=== PATIENT | male | born 1980 | race Two or more races ===

== ENCOUNTER 2017-04-05 04:26 | Emergency (ER) | payer MEDICARE, MEDICAID ==
[2017-04-05 05:30] LABS: ABSOLUTE BASOPHILS # (AUTO) 0.1 10^3/uL (0.0-0.2); ABSOLUTE EOSINOPHILS # (AUTO) 0.2 10^3/uL (0.0-0.6); ABSOLUTE LYMPHOCYTES (AUTO) 2.5 10^3/uL (0.5-4.7); BASOPHILS % (AUTO) 0.4 % (0-2); EOSINOPHILS % (AUTO) 1.3 % (0-6); HEMATOCRIT 39.6 % (37.9-51.0); HEMOGLOBIN 12.8 g/dL (13.5-17.0); HGB HCT DIFFERENCE -1.2; LYMPHOCYTES % (AUTO) 14.2 % (13-45); MEAN CORPUSCULAR HEMOGLOBIN 26.7 pg (27.0-33.4); MEAN CORPUSCULAR HGB CONC 32.3 g/dL (32.0-36.0); MEAN CORPUSCULAR VOLUME 83 fl (80-97); MONOCYTES % (AUTO) 5.6 % (3-13); RED BLOOD COUNT 4.78 10^6/uL (4.35-5.55); RED CELL DISTRIBUTION WIDTH 15.8 % (11.5-14.0); SEGMENTED NEUTROPHILS % (AUTO) 78.5 % (42-78); WHITE BLOOD COUNT 17.9 10^3/uL (4.0-10.5)
[2017-04-05 05:36] LABS: APPEARANCE,URINE TURBID; BILIRUBIN,URINE NEGATIVE (NEGATIVE); CALCIUM OXALATE CRYSTALS,URINE MODERATE /HPF; GLUCOSE, URINE NEGATIVE (NEGATIVE); KETONES,URINE NEGATIVE (NEGATIVE); LEUKOCYTE ESTERASE,URINE LARGE (NEGATIVE); NITRITE,URINE POSITIVE (NEGATIVE); PROTEIN,URINE 100 mg/dL (NEGATIVE); URINE SPECIFIC GRAVITY 1.027; UROBILINOGEN,URINE NEGATIVE mg/dL (<2.0)
[2017-04-05 05:43] LABS: ALANINE AMINOTRANSFERASE 30 U/L (21-72); ALKALINE PHOSPHATASE 154 U/L (38-126); ANION GAP 11 (5-19); ASPARTATE AMINO TRANSFERASE 25 U/L (17-59); BILIRUBIN,DIRECT 0.4 mg/dL (0.0-0.4); BILIRUBIN,TOTAL 0.5 mg/dL (0.2-1.3); BLOOD UREA NITROGEN 15 mg/dL (7-20); CALCIUM 9.5 mg/dL (8.4-10.2); CARBON DIOXIDE 25 mmol/L (22-30); CHLORIDE 104 mmol/L (98-107); CREATININE RESULT 0.75 mg/dL (0.52-1.25); GLUCOSE 204 mg/dL (75-110); LIPASE 101.1 U/L (23-300); POTASSIUM 3.7 mmol/L (3.6-5.0); SODIUM 139.6 mmol/L (137-145); TOTAL PROTEIN 8.5 g/dL (6.3-8.2)
[2017-04-05] MEDS ORDERED: NORMAL SALINE 1000 ML 1,000 ML IV ONE (06:30)
[2017-04-05] MEDS ORDERED: KETOROLAC TROMETHAMINE INJ/PF 30 MG/1 ML SDV IV ONE (06:31)
[2017-04-05] MEDS ORDERED: ONDANSETRON HCL INJ/PF 4 MG/2 ML SDV IV ONE (06:31)
[2017-04-05] MEDS ORDERED: CIPROFLOXACIN 400 MG/D5W RTU 400 MG/200 ML RTUPB IV ONE (06:36)
[2017-04-05 07:16] LABS: URINE BARBITURATES SCREEN NEGATIVE; URINE METHADONE SCREEN NEGATIVE; URINE OPIATES LOW NEGATIVE; URINE PHENCYCLIDINE SCREEN NEGATIVE
--- NOTE | 2017-04-05 07:29 | RADIOLOGY REPORT (SQ) ---
EXAM DESCRIPTION: CT LTD RENAL STONE PROTOCOL ON COMPLETED DATE/TIME: 04/05/2017 7:14 am REASON FOR STUDY: flank pain . Bilateral flank pain. COMPARISON: None. TECHNIQUE: CT scan of the abdomen and pelvis performed without intravenous or oral contrast. Images reviewed with lung, soft tissue, and bone windows. Reconstructed coronal and sagittal MPR images revi ewed. All images stored on PACS. All CT scanners at this facility use dose modulation, iterative reconstruction, and/or weight based d osing when appropriate to reduce radiation dose to as low as reasonably achievable (ALARA). [facility]: Dose Right [facility]: CareDose [facility]: Dose Right [facility]: Teradose 4D [facility]: [employer] RADIATION DOSE: Up-to-date CT equipment and radiation dose reduction techniques were employed. CTDIv ol: 19.2 mGy. DLP: 1089 mGy-cm.mGy. LIMITATIONS: Artifact from the patient's body habitus. FINDINGS: LOWER CHEST: Mild bibasilar atelectasis. No pleural effusion. NON-CONTRASTED LIVER, SPLEEN, ADRENALS: Evaluation limited by lack of IV contrast. The liver is enla rged measuring 24 cm in craniocaudal dimension and it has diffuse decreased attenuation, most consist ent with fatty infiltration. The spleen is mildly enlarged measuring 14.2 cm. PANCREAS: No peripancreatic inflammatory changes. GALLBLADDER: No identified stones by CT criteria. No inflammatory changes to suggest cholecystitis. RIGHT KIDNEY AND URETER: Assessment for masses limited by lack of IV contrast. No significant calci fications. No hydronephrosis or hydroureter. LEFT KIDNEY AND URETER: Assessment for masses limited by lack of IV contrast. No significant calcif ications. No hydronephrosis or hydroureter. AORTA AND RETROPERITONEUM: No abdominal aortic aneurysm. No retroperitoneal masses or adenopathy. BOWEL AND PERITONEAL CAVITY: No dilated bowel loops or inflammatory changes. No free fluid. APPENDIX: Normal. PELVIS, BLADDER, AND ABDOMINAL WALL:No abnormal masses. No free fluid. Bladder decompressed by a Fole y catheter. Small fat containing umbilical hernia. BONES: Degenerative changes in the spine. IMPRESSION: No urinary tract calculi or hydronephrosis. Hepatomegaly and fatty infiltration of the liver. Mild splenomegaly. COMMENT: Quality ID # [id number]: Final reports with documentation of one or more dose reduction techniques (e.g., Automated exposure control, adjustment of the mA and/or kV according to patient size, use of iterative reconstruction technique) TECHNICAL DOCUMENTATION: JOB ID: [id number] [employer]- All Rights Reserved
[2017-04-05] MEDS ORDERED: MORPHINE SULFATE 10 MG/ML INJ IV ONE (07:45)
--- NOTE | 2017-04-05 07:52 | ER Document Report ---
ED General - General Chief Complaint: Flank Pain Stated Complaint: GROIN PAIN Time Seen by Provider: 04/05/17 06:23 - HPI Patient complains to provider of: Bilateral flank pain groin pain Notes: Patient is coming in for evaluation of bilateral flank pain and groin pain. Patient states history of spinal abscesses [facility] to rehab facility patient states he has not regained function of his legs however has continuous neurogenic bladder therefore has indwelling Clark. Patient denies any fevers or night sweats however states pain starting the last 24-48 hours. Denies nausea vomiting. Patient otherwise states that his motor function and sensory function is grossly normal. By my evaluation patient sitting up in no obvious distress - Related Data Allergies/Adverse Reactions: dactinomycin Allergy (Verified 04/05/17 05:12) Penicillins Allergy (Verified 04/05/17 05:12) Past Medical History - Social History Smoking Status: Current Every Day Smoker Chew tobacco use (# tins/day): No Drug Abuse: None Family History: Reviewed & Not Pertinent Endocrine Medical History: Reports: Hx Diabetes Mellitus Type 2 Review of Systems - Review of Systems Constitutional: No symptoms reported EENT: No symptoms reported Cardiovascular: No symptoms reported Respiratory: No symptoms reported Gastrointestinal: No symptoms reported Genitourinary: Flank pain - Groin pain Male Genitourinary: No symptoms reported Musculoskeletal: No symptoms reported Skin: No symptoms reported Hematologic/Lymphatic: No symptoms reported Neurological/Psychological: No symptoms reported Physical Exam - Vital signs Vitals: Temp Pulse Resp BP Pulse Ox 98.1 F 97 18 138/75 H 96 04/05/17 05:20 04/05/17 05:20 04/05/17 05:20 04/05/17 05:20 04/05/17 05:20 Interpretation: Normal - General General appearance: Appears well, Alert - HEENT Head: Normocephalic, Atraumatic Eyes: Normal Pupils: PERRL - Respiratory Respiratory status: No respiratory distress Chest status: Nontender Breath sounds: Normal Chest palpation: Normal - Cardiovascular Rhythm: Regular Heart sounds: Normal auscultation Murmur: No - Abdominal Inspection: Morbidly Obese Distension: No distension Bowel sounds: Normal Tenderness: Nontender Organomegaly: No organomegaly - Genitourinary Inspection: Normal - Indwelling Clark catheter - Back Back: Normal, Nontender - Extremities General upper extremity: Normal inspection, Nontender, Normal color, Normal ROM , Normal temperature General lower extremity: Normal inspection, Nontender, Normal color, Normal ROM , Normal temperature, Normal weight bearing. No: Popeye's sign - Neurological Neuro grossly intact: Yes Cognition: Normal Orientation: AAOx4 Justine Coma Scale Eye Opening: Spontaneous Beyer Coma Scale Verbal: Oriented Justine Coma Scale Motor: Obeys Commands Beyer Coma Scale Total: 15 Speech: Normal Motor strength normal: LUE, RUE, LLE, RLE Sensory: Normal - Psychological Associated symptoms: Normal affect, Normal mood - Skin Skin Temperature: Warm Skin Moisture: Dry Skin Color: Normal Course - Re-evaluation Re-evalutation: 04/05/17 13:45 Patient's urinalysis does show signs of infection. Clark catheter was exchanged as is last time was exchanged was 3 weeks ago. Patient does have leukocytosis. Unfortunately patient is allergic to penicillin states anaphylaxis therefore we will start the patient on ciprofloxacin urine culture will be sent. Patient is encouraged follow-up with his primary care physician. Patient states difficulty in following up with primary care physician is that he does not have transportation we will leave a note for case manager specialist to further evaluate the patient for his needs at home. CT scan was performed to evaluate for obstructing stone the signs of urosepsis. Patient was stable to be treated as outpatient. - Vital Signs Vital signs: Temp Pulse Resp BP Pulse Ox 98.4 F 84 20 114/67 97 04/05/17 10:04 04/05/17 10:04 04/05/17 10:04 04/05/17 10:04 04/05/17 10:04 - Laboratory Result Diagrams: 04/05/17 04:55 04/05/17 04:55 Laboratory results interpreted by me: 04/05/17 04/05/17 04/05/17 04:55 04:55 04:55 WBC 17.9 H Hgb 12.8 L MCH 26.7 L RDW 15.8 H Seg Neutrophils % 78.5 H Absolute Neutrophils 14.0 H Glucose 204 H Alkaline Phosphatase 154 H Total Protein 8.5 H Urine Protein 100 H Urine Blood SMALL H Urine Nitrite POSITIVE H Ur Leukocyte Esterase LARGE H Discharge - Discharge Clinical Impression: UTI (urinary tract infection) Qualifiers: Urinary tract infection type: catheter-associated UTI Indwelling urinary catheter type: indwelling urethral catheter Encounter type: initial encounter Qualified Code(s): T83.511A - Infection and inflammatory reaction due to indwelling urethral catheter, initial encounter Condition: Good Disposition: HOME, SELF-CARE Instructions: Ciprofloxacin ([facility]), Urinary Tract Infection ([facility]) Additional Instructions: Your laboratory studies today show signs of urinary tract infection. We will start you on antibiotic of Cipro. Highly recommend she follow-up with your primary care physician in the next 3-5 days for further evaluation. We also send you home with a medication called Amy for nausea. Prescriptions: Ciprofloxacin HCl [Cipro 500 mg Tablet] 500 mg PO BID #20 tablet Metoclopramide HCl [Reglan] 5 mg PO Q6 #30 tablet Referrals: GURU WOODRUFF PA [Primary Care Provider] - Follow up in 3-5 days
[2017-04-05 10:05] VITALS: BP 114/67
== END 2017-04-05 10:05 | disposition home or self-care (01) ==
LOC: ER 04:26
DX: R10.9 Unspecified abdominal pain (principal); T83.511A Infection and inflammatory reaction due to indwelling urethral catheter, initial encounter; F17.200 Nicotine dependence, unspecified, uncomplicated; E11.9 Type 2 diabetes mellitus without complications; Z88.0 Allergy status to penicillin; Z88.3 Allergy status to other anti-infective agents
CPT/HCPCS: 99284; 51702; 96375; 96365; 36415; 87086; 83690; 85025; 87088; 80053; 81001; 87186; 80307; 76380; J1885; J2270; J2405; J7030; J0744

== ENCOUNTER 2017-04-12 10:28 | Emergency (ER) | payer MEDICARE, MEDICAID ==
--- NOTE | 2017-04-12 10:32 | ER Document Report ---
ED GI/ - General Stated Complaint: URINARY SYMPTOMS Time Seen by Provider: 04/12/17 10:30 Mode of Arrival: Medic Information source: Patient TRAVEL OUTSIDE OF THE [place] IN LAST 30 DAYS: No - HPI Patient complains to provider of: Other - BACK PAIN Onset: Last week Timing/Duration: Gradual, Persistent, Waxing and waning Quality of pain: Dull Severity at maximum: Moderate Severity in ED: Moderate Context: Other - PARAPLEGIC DUE TO EPIDURAL ABSCESS 2014, HAS INDWELLING STEINBERG Location: Low back Associated symptoms: denies: Chills, Diarrhea, Fever, Nausea, Vomiting Exacerbated by: Denies Relieved by: Denies - Related Data Allergies/Adverse Reactions: dactinomycin Allergy (Verified 04/15/17 16:31) Penicillins Allergy (Verified 04/15/17 16:31) Past Medical History - General Information source: Patient - Social History Smoking Status: Current Every Day Smoker Cigarette use (# per day): Yes Chew tobacco use (# tins/day): No Smoking Education Provided: No Frequency of alcohol use: None Drug Abuse: None Lives with: Family Family History: Reviewed & Not Pertinent - Past Medical History Cardiac Medical History: Reports: None Pulmonary Medical History: Reports: None Neurological Medical History: Reports: Other - T-12 PARAPLEGIC (SEE HPI) Endocrine Medical History: Reports: Hx Diabetes Mellitus Type 2 Renal/ Medical History: Reports: Other - SEE HPI Malignancy Medical History: Reports None GI Medical History: Reports: None Musculoskeltal Medical History: Reports Other - PARAPLEGIA Psychiatric Medical History: Reports: None Surgical Hx: Negative Review of Systems - Review of Systems Constitutional: No symptoms reported EENT: No symptoms reported Cardiovascular: No symptoms reported Respiratory: No symptoms reported Gastrointestinal: No symptoms reported Genitourinary: See HPI Musculoskeletal: See HPI Neurological/Psychological: See HPI Physical Exam - Vital signs Vitals: Pulse BP Pulse Ox 86 146/76 H 97 04/12/17 10:32 04/12/17 10:32 04/12/17 10:32 Interpretation: Hypertensive. No: Tachycardic, Tachypneic, Febrile - General General appearance: Appears well, Alert In distress: None - HEENT Head: Normocephalic Eyes: Normal Conjunctiva: Normal Ears: Normal Nasal: Normal Mouth/Lips: Normal Mucous membranes: Normal - Respiratory Respiratory status: No respiratory distress Breath sounds: Normal - Cardiovascular Rhythm: Regular Heart sounds: Normal auscultation Murmur: No - Abdominal Inspection: Obese Bowel sounds: Normal - Genitourinary Tenderness: Other - indwelling steinberg - Extremities General upper extremity: Normal inspection General lower extremity: Normal inspection - Neurological Neuro grossly intact: No - PARTIAL PARAPLEGIA Cognition: Normal Orientation: AAOx4 - Psychological Associated symptoms: Normal affect, Normal mood - Skin Skin Temperature: Warm Skin Moisture: Dry Skin Color: Normal Skin Turgor: Elastic Course - Vital Signs Vital signs: Temp Pulse Resp BP Pulse Ox 98.5 F 91 131/61 H 94 04/12/17 16:51 04/12/17 16:51 04/12/17 16:51 04/12/17 16:51 - Laboratory Result Diagrams: 04/12/17 11:04 04/12/17 11:04 Laboratory results interpreted by me: 04/12/17 04/12/17 04/12/17 11:04 11:04 12:15 WBC 12.9 H Hgb 13.1 L RDW 15.8 H Absolute Neutrophils 9.9 H Chloride 108 H Glucose 157 H Alkaline Phosphatase 138 H Total Protein 8.3 H Urine Protein 30 H Urine Nitrite POSITIVE H Ur Leukocyte Esterase LARGE H Discharge - Discharge Clinical Impression: Urinary tract infection due to Proteus, Low back pain associated with a spinal disorder other than radiculopathy or spinal stenosis Urinary tract infection associated with indwelling urethral catheter Qualifiers: Encounter type: initial encounter Qualified Code(s): T83.511A - Infection and inflammatory reaction due to indwelling urethral catheter, initial encounter Condition: Stable Disposition: HOME, SELF-CARE Instructions: Antinausea Medication ([facility]), Ciprofloxacin ([facility]), Oral Narcotic Medication ([facility]), Trimethoprim-Sulfa ([facility]), Urinary Tract Infection ([facility]) Additional Instructions: MEDS DIRECTED. DRINK PLENTY OF FLUIDS. AVOID PAINFUL ACTIVITY. FOLLOW UP WITH YOUR PRIMARY CARE PROVIDER IN 5-7 DAYS. RETURN TO E.R. FOR RE-EVALUATION IF YOU GET WORSE IN ANY WAY, ANY TIME. Referrals: GURU WOODRUFF PA [Primary Care Provider] - Follow up in 1 week
[2017-04-12] MEDS ORDERED: ONDANSETRON HCL INJ/PF 4 MG/2 ML SDV IV ONE (10:50)
[2017-04-12] MEDS ORDERED: HYDROMORPHONE HCL INJ/PF 2 MG/ML AMPULE IV ONE ×5 (10:50→17:57)
[2017-04-12 11:20] LABS: ABSOLUTE BASOPHILS # (AUTO) 0.1 10^3/uL (0.0-0.2); ABSOLUTE EOSINOPHILS # (AUTO) 0.2 10^3/uL (0.0-0.6); ABSOLUTE LYMPHOCYTES (AUTO) 1.9 10^3/uL (0.5-4.7); ABSOLUTE MONOCYTES (AUTO) 0.7 10^3/uL (0.1-1.4); ABSOLUTE NEUT (AUTO) 9.9 10^3/uL (1.7-8.2); BASOPHILS % (AUTO) 0.8 % (0-2); EOSINOPHILS % (AUTO) 1.8 % (0-6); HEMATOCRIT 39.1 % (37.9-51.0); HEMOGLOBIN 13.1 g/dL (13.5-17.0); HGB HCT DIFFERENCE 0.2; LYMPHOCYTES % (AUTO) 14.6 % (13-45); MEAN CORPUSCULAR HEMOGLOBIN 27.3 pg (27.0-33.4); MEAN CORPUSCULAR HGB CONC 33.6 g/dL (32.0-36.0); MEAN CORPUSCULAR VOLUME 81 fl (80-97); MONOCYTES % (AUTO) 5.7 % (3-13); RED BLOOD COUNT 4.81 10^6/uL (4.35-5.55); RED CELL DISTRIBUTION WIDTH 15.8 % (11.5-14.0); SEGMENTED NEUTROPHILS % (AUTO) 77.1 % (42-78); WHITE BLOOD COUNT 12.9 10^3/uL (4.0-10.5)
[2017-04-12 11:34] LABS: ALANINE AMINOTRANSFERASE 38 U/L (21-72); ALKALINE PHOSPHATASE 138 U/L (38-126); ANION GAP 12 (5-19); ASPARTATE AMINO TRANSFERASE 23 U/L (17-59); BILIRUBIN,DIRECT 0.3 mg/dL (0.0-0.4); BILIRUBIN,TOTAL 0.5 mg/dL (0.2-1.3); BLOOD UREA NITROGEN 10 mg/dL (7-20); CALCIUM 9.5 mg/dL (8.4-10.2); CARBON DIOXIDE 22 mmol/L (22-30); CHLORIDE 108 mmol/L (98-107); CREATININE RESULT 0.68 mg/dL (0.52-1.25); GLUCOSE 157 mg/dL (75-110); POTASSIUM 4.2 mmol/L (3.6-5.0); SODIUM 141.6 mmol/L (137-145); TOTAL PROTEIN 8.3 g/dL (6.3-8.2)
[2017-04-12] MEDS ORDERED: SULFAMETHOX/TRIMETH 800-160 MG/10 ML VIAL IV ONE (12:08)
[2017-04-12 12:37] LABS: AMORPHOUS SEDIMENT,URINE TRACE /HPF; APPEARANCE,URINE CLOUDY; BILIRUBIN,URINE NEGATIVE (NEGATIVE); GLUCOSE, URINE NEGATIVE (NEGATIVE); KETONES,URINE NEGATIVE (NEGATIVE); LEUKOCYTE ESTERASE,URINE LARGE (NEGATIVE); NITRITE,URINE POSITIVE (NEGATIVE); PROTEIN,URINE 30 mg/dL (NEGATIVE); URINE SPECIFIC GRAVITY 1.013; UROBILINOGEN,URINE NEGATIVE mg/dL (<2.0)
[2017-04-12] MEDS ORDERED: DIAZEPAM INJ 10 MG/2 ML DISP.SYRIN IV ONE (13:05)
--- NOTE | 2017-04-12 14:31 | RADIOLOGY REPORT (SQ) ---
EXAM DESCRIPTION: MRI THORACIC SPINE WITHOUT COMPLETED DATE/TIME: 04/12/2017 1:40 pm REASON FOR STUDY: ACUTELY WORSENING BACK PAIN, NO TRAUMA, H/O S.E.A. COMPARISON: MRI from [facility] dated 02/17/2017. TECHNIQUE: Sagittal and Axial imaging includes T1, T2, STIR and gradient echo sequences. LIMITATIONS: Motion artifact. FINDINGS: LOCALIZER: No worrisome findings. ALIGNMENT: Normal. VERTEBRAE: Intact. BONE MARROW: Normal. No marrow replacement or reactive changes. HARDWARE: None in the spine. CORD: Normal in size and signal intensity. SOFT TISSUES: No soft tissue masses. THORACIC DISCS T1-T12: No significant spinal stenosis or exit foraminal stenosis. LOWER CERVICAL: Incompletely imaged. No significant spinal stenosis or exit foraminal stenosis. UPPER LUMBAR: Incompletely imaged. No significant spinal stenosis or exit foraminal stenosis. OTHER: No abnormal fluid or soft tissue in the epidural spaces. IMPRESSION: UNREMARKABLE MRI THORACIC SPINE. NO ABNORMAL FLUID OR SOFT TISSUE IN THE EPIDURAL SPACE S. TECHNICAL DOCUMENTATION: JOB ID: [id number]- All Rights Reserved
--- NOTE | 2017-04-12 15:29 | RADIOLOGY REPORT (SQ) ---
EXAM DESCRIPTION: MRI LUMBAR SPINE WITHOUT COMPLETED DATE/TIME: 04/12/2017 3:05 pm REASON FOR STUDY: ACUTELY WORSENING BACK PAIN, NO TRAUMA, H/O S.E.A. COMPARISON: MRI scans from [facility] dated 02/17/2017 and 12/11/2016. TECHNIQUE: Sagittal and Axial imaging includes T1, T2, STIR and gradient echo sequences. Coronal T2/ HASTE imaging. LIMITATIONS: Motion artifact. FINDINGS: VISUALIZED UPPER ABDOMEN: Limited evaluation. No acute or suspicious findings suggested. SEGMENTATION: No transitional anatomy. The lowest well-developed disc space is labeled L5-S1. ALIGNMENT: Anatomic. VERTEBRAE: Intact. BONE MARROW: Normal. No marrow replacement or reactive changes. DISC SIGNAL: Mild desiccation of the L5-S1 disc. Otherwise no. No significant abnormal signal or los s of height. POSTERIOR ELEMENTS: Generally intact. No pars defect evident. HARDWARE: None in the spine. CORD AND CONUS: Normal in size and signal intensity. Conus at the appropriate level. SOFT TISSUES: No aortic aneurysm seen. No bulky retroperitoneal adenopathy or mass. No paraspinal mas s or fluid. L1-L2: No significant spinal stenosis or exit foraminal stenosis. L2-L3: No significant spinal stenosis or exit foraminal stenosis. L3-L4: No significant spinal stenosis or exit foraminal stenosis. L4-L5: No significant spinal stenosis or exit foraminal stenosis. L5-S1: No significant spinal stenosis or exit foraminal stenosis. LOWER THORACIC: Incompletely imaged. No stenosis seen. SACRUM: Visualized upper sacrum intact. OTHER: No other significant findings. IMPRESSION: UNREMARKABLE MRI LUMBAR SPINE. NO ABNORMAL SOFT TISSUE OR FLUID IN THE EPIDURAL SPACES. TECHNICAL DOCUMENTATION: JOB ID: [id number] [employer]- All Rights Reserved
[2017-04-12 16:53] VITALS: BP 131/61
[2017-04-12] MEDS ORDERED: HYDROMORPHONE HCL 2 MG TABLET PO ONE ×2 (17:56→19:31)
== END 2017-04-12 20:17 | disposition home or self-care (01) ==
LOC: ER 10:28
DX: T83.511D Infection and inflammatory reaction due to indwelling urethral catheter, subsequent encounter (principal); N39.0 Urinary tract infection, site not specified; M54.5 Low back pain; F17.210 Nicotine dependence, cigarettes, uncomplicated; G82.20 Paraplegia, unspecified; E11.9 Type 2 diabetes mellitus without complications; Z88.0 Allergy status to penicillin
CPT/HCPCS: 96376; 99284; 96374; 96375; 36415; 87086; 85025; 87088; 80053; 81001; 87186; 72146; 72148; J3360; A9270; J1170; J3490; J2405

== ENCOUNTER 2017-04-15 16:26 | Inpatient (IN) | payer MEDICARE, MEDICAID ==
[2017-04-15] MEDS ORDERED: CEFTRIAXONE RTU 1 GM/D5W 50 ML IV ONE (16:37)
[2017-04-15] MEDS ORDERED: HYDROMORPHONE HCL INJ/PF 2 MG/ML AMPULE IV ONE (16:44)
--- NOTE | 2017-04-15 16:51 | ER Document Report ---
ED Fall - General Chief Complaint: Fall Stated Complaint: FALL;HIP PAIN Time Seen by Provider: 04/15/17 16:33 Notes: Patient is a 36-year-old male that presents today with EMS status post fall from a wheelchair that he was transferring out of. Patient states that he has had some suprapubic pain with a foul-smelling urine for the last 5 days. He states he was seen and evaluated here 3 days ago for this was started on Bactrim. Patient denies any fever states nausea without vomiting. He was supposedly transferring to the bathroom when he lost his balance and fell onto his right hip. Patient has a chronic Clark catheter secondary to an epidural abscess plan 5 years ago. Patient has regained strength and sensation to his legs and is able to walk intermittently with braces. Patient states pain to his right lateral hip status post fall. He states he heard a "pop". TRAVEL OUTSIDE OF THE [place] IN LAST 30 DAYS: No - HPI Occurred: Just prior to arrival Where: Home Context: Fell from sitting Associated symptoms: None Location of injury/pain: Other - See above Quality of pain: Achy Severity: Moderate Pain Level: 4 Prehospital interventions: No: C-collar, Backboard - Related data Allergies/Adverse Reactions: dactinomycin Allergy (Verified 04/15/17 16:31) Penicillins Allergy (Verified 04/15/17 16:31) Past Medical History - General Information source: Patient - Social History Smoking Status: Unknown if Ever Smoked Cigarette use (# per day): No Chew tobacco use (# tins/day): No Smoking Education Provided: No Frequency of alcohol use: None Drug Abuse: None Family History: Reviewed & Not Pertinent Endocrine Medical History: Reports: Hx Diabetes Mellitus Type 2 Review of Systems - Review of Systems Constitutional: denies: Fever Cardiovascular: denies: Chest pain, Palpitations, Dizziness, Lightheaded Respiratory: denies: Cough, Hurts to breathe, Short of breath Gastrointestinal: denies: Abdomen distended, Vomiting Musculoskeletal: denies: Leg swelling Skin: Other - no hives. denies: Rash Neurological/Psychological: Other - no slurred speech -: Yes All other systems reviewed and negative Physical Exam - Vital signs Vitals: Temp Pulse Resp BP Pulse Ox 98.3 F 86 20 156/88 H 99 04/15/17 16:42 04/15/17 16:42 04/15/17 16:42 04/15/17 16:42 04/15/17 16:42 Notes: Reviewed vital signs and nursing note as charted by RN. CONSTITUTIONAL: Alert and oriented and responds appropriately to questions. Well -appearing; well-nourished HEAD: Normocephalic; atraumatic NECK: Supple without meningismus; non-tender CARD: Regular rate and rhythm; no murmurs, no clicks, no rubs, no gallops; symmetric distal pulses RESP: Normal chest excursion without splinting or tachypnea; breath sounds clear and equal bilaterally ABD/GI: Normal bowel sounds; non-distended; soft, non-tender GI/: Patient has some whitish discharge coming from the urethral meatus around the Clark site. The Clark urine is very cloudy and foul smell BACK: The back appears normal and is non-tender to palpation along the midline spine. Patient has some right lateral tenderness to the right leg/hip with no obvious shortening or deformity. EXT: See above; patient has sensation intact to light touch of his right foot with good foot and ankle movement and excellent pulses with good capillary refill SKIN: No acute lesions noted NEURO: Moves all extremities equally; Motor and sensory function intact PSYCH: The patient's mood and manner are appropriate. Grooming and personal hygiene are appropriate. Course - Re-evaluation Re-evalutation: 04/15/17 16:51 Given the history and physical examination, we will obtain repeat basic labs to check the patient's creatinine function. We will also obtain an x-ray of the pelvis/hip. I have reviewed the urine culture that was performed 3 days ago showing very resistant organisms. I have started the patient on Rocephin. Patient states he does have a history of allergies to penicillins but is taking Keflex without complication. Patient will be placed on the monitor. 04/15/17 17:40 Pelvic x-ray shows no obvious pelvic or hip fractures. We will change the Clark catheter. Patient has received Rocephin on the monitor. Basic labs have been sent. Patient will be admitted to the hospitalist for IV antibiotics given the urine culture susceptibility results. - Vital Signs Vital signs: Temp Pulse Resp BP Pulse Ox 98.3 F 86 20 156/88 H 99 04/15/17 16:42 04/15/17 16:42 04/15/17 16:42 04/15/17 16:42 04/15/17 16:42 - Laboratory Result Diagrams: 04/15/17 17:26 04/15/17 17:26 Discharge - Discharge Clinical Impression: Accidental fall Qualifiers: Encounter type: initial encounter Qualified Code(s): W19.XXXA - Unspecified fall, initial encounter UTI (urinary tract infection) Qualifiers: Urinary tract infection type: site unspecified Hematuria presence: without hematuria Qualified Code(s): N39.0 - Urinary tract infection, site not specified Condition: Fair Disposition: ADMITTED INPATIENT Admitting Provider: Hospitalist Unit Admitted: Medical Floor
[2017-04-15 17:42] LABS: ABSOLUTE BASOPHILS # (AUTO) 0.1 10^3/uL (0.0-0.2); ABSOLUTE EOSINOPHILS # (AUTO) 0.2 10^3/uL (0.0-0.6); ABSOLUTE LYMPHOCYTES (AUTO) 2.1 10^3/uL (0.5-4.7); ABSOLUTE NEUT (AUTO) 8.2 10^3/uL (1.7-8.2); BASOPHILS % (AUTO) 0.5 % (0-2); EOSINOPHILS % (AUTO) 2.1 % (0-6); HEMATOCRIT 37.3 % (37.9-51.0); HEMOGLOBIN 12.5 g/dL (13.5-17.0); HGB HCT DIFFERENCE 0.2; LYMPHOCYTES % (AUTO) 17.8 % (13-45); MEAN CORPUSCULAR HEMOGLOBIN 27.1 pg (27.0-33.4); MEAN CORPUSCULAR HGB CONC 33.5 g/dL (32.0-36.0); MEAN CORPUSCULAR VOLUME 81 fl (80-97); MONOCYTES % (AUTO) 8.4 % (3-13); RED BLOOD COUNT 4.62 10^6/uL (4.35-5.55); RED CELL DISTRIBUTION WIDTH 15.9 % (11.5-14.0); SEGMENTED NEUTROPHILS % (AUTO) 71.2 % (42-78); WHITE BLOOD COUNT 11.6 10^3/uL (4.0-10.5)
--- NOTE | 2017-04-15 17:45 | RADIOLOGY REPORT (SQ) ---
EXAM DESCRIPTION: HIP RIGHT AP/LATERAL COMPLETED DATE/TIME: 04/15/2017 5:13 pm REASON FOR STUDY: 2, s/p fall COMPARISON: None. NUMBER OF VIEWS: Two views. TECHNIQUE: AP pelvis and additional frog-leg view of the right hip. LIMITATIONS: None. FINDINGS: MINERALIZATION: Normal. RIGHT HIP: A portion of the femoral neck is not well visualized due to patient positioning with the g reater trochanter overlying the proximal femoral neck. No obvious fractures are identified. LEFT HIP: No fracture or dislocation. No worrisome bone lesions. PUBIS AND ISCHIUM: No fracture. PELVIS: No fracture. SACRUM: No fracture or dislocation. No worrisome bone lesions. LOWER LUMBAR SPINE: No fracture or dislocation. No worrisome bone lesions. No significant disc disea se. SOFT TISSUES: No findings. OTHER: No other significant finding. IMPRESSION: Portion of the right femoral neck is not well visualized as noted above. No obvious fra ctures are identified. Other findings as noted above TECHNICAL DOCUMENTATION: JOB ID: [id number] [employer]- All Rights Reserved
[2017-04-15 17:57] LABS: AMORPHOUS SEDIMENT,URINE TRACE /HPF; APPEARANCE,URINE CLOUDY; BILIRUBIN,URINE NEGATIVE (NEGATIVE); GLUCOSE, URINE NEGATIVE (NEGATIVE); KETONES,URINE NEGATIVE (NEGATIVE); LEUKOCYTE ESTERASE,URINE MODERATE (NEGATIVE); NITRITE,URINE POSITIVE (NEGATIVE); PROTEIN,URINE 30 mg/dL (NEGATIVE); URINE SPECIFIC GRAVITY 1.021; UROBILINOGEN,URINE NEGATIVE mg/dL (<2.0)
[2017-04-15 18:01] LABS: ANION GAP 10 (5-19); BLOOD UREA NITROGEN 11 mg/dL (7-20); CALCIUM 9.3 mg/dL (8.4-10.2); CARBON DIOXIDE 24 mmol/L (22-30); CHLORIDE 105 mmol/L (98-107); CREATININE RESULT 0.69 mg/dL (0.52-1.25); GLUCOSE 110 mg/dL (75-110); POTASSIUM 3.8 mmol/L (3.6-5.0); SODIUM 139.2 mmol/L (137-145)
--- NOTE | 2017-04-15 18:48 | PDOC H&P ---
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 The patient initially presented to the ER on 04/12 and was given oral antibiotics to include Bactrim and Cipro. Unfortunately, the patient did not have much improvement and returned with complaints of continued symptoms. Patient apparently also had a urine culture done at this time and again on the ninth of this month as well. He states that at home he had a tactile fever, chills, nausea and vomiting. He also had abdominal and groin pain as well as pain in the back. Patient was transferring today and had a fall resulting in him being wedged between his bed and another object. Upon presentation to the emergency room hip films were obtained which did not show any fractures. He was noted also that his previous urine cultures had multidrug-resistant organisms growing. The patient was treated with a dose of Rocephin. Past Medical History Neurological History Note: 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 Over the last month he has recently regained some ability to walk with leg braces. In addition to this the patient also has a history of neurogenic bladder has a chronic indwelling Clark. He has experienced recurrent urinary tract infections as a result. Endocrine Medical History: Reports: Diabetes Mellitus Type 2 Psychiatric Medical History: Reports: Tobacco Dependency Past Surgical History Past Surgical History: Reports: Other - Intervention for epidural abscess. Social History Information Source: Patient Lives with: Spouse/Significant other Smoking Status: Current Every Day Smoker - The patient has been smoking since the age of 21. At worst he was up to 1 pack per day. Frequency of Alcohol Use: None Drugs: None Past Social History Note: The patient smokes 8 cigarettes each day - Advance Directive Resuscitation Status: Full Code Family History Family History: None Parental Family History Reviewed: Yes Children Family History Reviewed: Yes Sibling(s) Family History Reviewed.: Yes Medication/Allergy Home Medications: Baclofen [Baclofen 20 mg Tablet] 20 mg PO Q8 04/15/17 Duloxetine HCl [Cymbalta] 60 mg PO DAILY 04/15/17 Gabapentin [Neurontin 400 mg Capsule] 400 mg PO Q8 04/15/17 Hydromorphone HCl [Dilaudid 2 mg Tablet] 2 mg PO Q4HP PRN 04/15/17 Insulin Aspart [Novolog Flexpen] 10 units SQ ACP PRN 04/15/17 Insulin Glargine,Hum.rec.anlog [Lantus Solostar] 45 units SQ Q12 04/15/17 Melatonin/Pyridoxine HCl (B6) [Melatonin 10 mg Tablet] 10 mg PO QHS 04/15/17 Allergies/Adverse Reactions: dactinomycin Allergy (Verified 04/15/17 16:31) Penicillins Allergy (Verified 04/15/17 16:31) Review of Systems Review of Systems: Review of systems is pertinent as that already listed in HPI. In addition to that the patient states that he has been constipated the last 6 days and finally had 3 bowel movements yesterday. He also has some occasional arthritis in both the knees and most recently some vision changes associated with lightheadedness and dizziness during his acute illness. He also admits to blood in the urine. He does not know if he has blood in the stool because he does not have the opportunity to see his own bowel movements. He is usually cleaned up by his . He denies blood in the emesis or coughing up any blood. He has recently lost 70 pounds intentionally. The patient is pushing for another 100 pounds off. He has decreased ambulatory function secondary to his history of paralysis. He is status post 8 months of rehab. He denies any heat or cold intolerance. He also denies any diarrhea. Physical Exam Vital Signs: Temp Pulse Resp BP Pulse Ox 98.3 F 86 19 137/65 H 97 04/15/17 16:42 04/15/17 16:42 04/15/17 18:01 04/15/17 18:01 04/15/17 18:01 GENERAL: This is a well-developed well-nourished morbidly obese white male resting in bed currently in no acute distress. HEENT: Normocephalic atraumatic. trachea is midline. Sclera are anicteric. Moist mucous membranes. mallampati 4. Neck circumference greater than 18 inches. HEART: Regular rate and rhythm. No murmurs, rubs or gallops. LUNGS: Distant but clear to auscultation bilaterally with equal rise and fall of the chest. ABDOMEN: Soft, nontender, nondistended with normoactive bowel sounds : Clark catheter in place draining dark colored urine. EXTREMETIES: No clubbing, cyanosis or edema. 2+ peripheral pulses bilaterally. Strength is 5 out of 5 in the upper extremities bilaterally. in the lower extremities the patient cannot raise his legs. He can however bend at the knee. Strength is 3-4 out of 5. It is a little bit better on the left. NEURO: Awake, alert and oriented 3. Cranial nerves II through XII are grossly intact. Results Laboratory Results: 04/15/17 17:26 04/15/17 17:26 04/15/17 04/15/17 04/15/17 17:26 17: 17:40 WBC 11.6 H RBC 4.62 Hgb 12.5 L Hct 37.3 L MCV 81 MCH 27.1 MCHC 33.5 RDW 15.9 H Plt Count 295 Seg Neutrophils % 71.2 Lymphocytes % 17.8 Monocytes % 8.4 Eosinophils % 2.1 Basophils % 0.5 Absolute Neutrophils 8.2 Absolute Lymphocytes 2.1 Absolute Monocytes 1.0 Absolute Eosinophils 0.2 Absolute Basophils 0.1 Sodium 139.2 Potassium 3.8 Chloride 105 Carbon Dioxide 24 Anion Gap 10 BUN 11 Creatinine 0.69 Est GFR ( Amer) > 60 Est GFR (Non-Af Amer) > 60 Glucose 110 Calcium 9.3 Urine Color YELLOW Urine Appearance CLOUDY Urine pH 7.0 Ur Specific Friendship 1.021 Urine Protein 30 H Urine Glucose (UA) NEGATIVE Urine Ketones NEGATIVE Urine Blood NEGATIVE Urine Nitrite POSITIVE H Ur Leukocyte Esterase MODERATE H Urine WBC (Auto) >182 Urine RBC (Auto) 15 Impressions: Hip/Pelvis X-Ray 04/15/17 16:33 IMPRESSION: Portion of the right femoral neck is not well visualized as noted above. No obvious fractures are identified. Other findings as noted above Assessment & Plan - Diagnosis (1) Urinary tract infection associated with indwelling urethral catheter Qualifiers: Encounter type: initial encounter Qualified Code(s): T83.511A - Infection and inflammatory reaction due to indwelling urethral catheter, initial encounter ; N39.0 - Urinary tract infection, site not specified Plan: This is a multidrug-resistant urinary tract infection with Morganella Morganii seen in the cultures from 04/12. The patient also had Serratia and Proteus in his urine back on 04/05/2017. This is a multidrug-resistant organism. In the ER he was started on Rocephin to which the organism is susceptible. I am going to leave him on this antibiotic. My hope would be to be able to transition him to home with IV antibiotics for the duration of 7-10 days. Tomorrow I will contact discharge planning. If I am successful the patient will need a PICC line prior to discharge. (2) Ambulatory dysfunction Plan: The patient suffered epidural abscess back in 2014 with subsequent paralysis and neurogenic bladder. He has been through 8 months of rehab. My digits is to get him home as quickly as possible so that he does not lose any function. Over the last month he is been able to regain his ability to walk using braces and a rolling chair. I am going to consult physical therapy while he is here. (3) Diabetes 1.5, managed as type 2 Plan: Continue home medications. Will begin sliding scale insulin. With before meals at bedtime blood sugar checks. Begin ADA diet. (4) Accidental fall Qualifiers: Encounter type: initial encounter Qualified Code(s): W19.XXXA - Unspecified fall, initial encounter Plan: Hip and pelvis x-rays show portion of the right femoral neck is not well visualized no obvious fractures identified. The ER is obtaining a CT to be sure there is nothing acute. (5) Morbid obesity Plan: The patient has lost 70 pounds thus far. He is trying to lose 100 more. Continue weight loss through dietary changes and any exercise that he can achieve considering his current condition. (6) Chronic pain Qualifiers: Chronic pain type: chronic pain syndrome Qualified Code(s): G89.4 - Chronic pain syndrome Plan: Chronic pain with opioid dependence. Continue home medications with Dilaudid. - Time Time Spent: 30 to 50 Minutes Anticipated discharge: Home with Homehealth Within: within 36 hours - Plan Summary Plan Summary: Patient is being hospitalized because of underlying multidrug-resistant UTI need for IV antibiotics. To discharge him home will place him at risk for acute decompensation and perhaps susceptible to developing sepsis.
[2017-04-15] MEDS ORDERED: GLUCAGON,HUMAN RECOMB 1 MG INJ IM PRN (18:59)
[2017-04-15] MEDS ORDERED: DEXTROSE 40% GEL 15 GM TUBE PO PRN ×2 (18:59)
[2017-04-15] MEDS ORDERED: DEXTROSE 50%-WATER 25 GM/50 ML DISP.SYRIN IV PRN ×2 (18:59)
[2017-04-15] MEDS ORDERED: OXYCODONE-ACETAMINOPHEN 5-325 MG TABLET PO PRN (19:00)
[2017-04-15] MEDS ORDERED: ONDANSETRON HCL INJ/PF 4 MG/2 ML SDV IV PRN (19:00)
--- NOTE | 2017-04-15 19:45 | RADIOLOGY REPORT (SQ) ---
EXAM DESCRIPTION: CT PELVIS WITHOUT COMPLETED DATE/TIME: 04/15/2017 7:10 pm REASON FOR STUDY: 2, Fall to right hip COMPARISON: Plain films dated 04/15/2017 TECHNIQUE: CT scan of the pelvis performed without intravenous or oral contrast. Images reviewed wi th soft tissue and bone windows. Reconstructed coronal and sagittal MPR images reviewed. All images stored on PACS. All CT scanners at this facility use dose modulation, iterative reconstruction, and/or weight based d osing when appropriate to reduce radiation dose to as low as reasonably achievable (ALARA). [facility]: Dose Right [facility]: CareDose [facility]: Dose Right [facility]: Teradose 4D [facility]: [employer] RADIATION DOSE: Up-to-date CT equipment and radiation dose reduction techniques were employed. CTDIv ol: 21.1 mGy. DLP: 876 mGy-cm. mGy. LIMITATIONS: Study is limited due to the patient's body habitus. FINDINGS: PELVIC BONES: No acute fracture. No worrisome bone lesions. VISUALIZED SPINE: No acute findings. HIP(S): On the sagittal images of the right hip there is apparent cortical offset just distal to the greater and lesser trochanters which is not identified in the other projections and may be artifactua l in nature related to patient motion however clinical correlation is recommended. No other evidence for fracture is seen. PELVIC SOFT TISSUES: No significant findings. EXTRAPELVIC SOFT TISSUES: No significant findings. OTHER: No other significant finding. IMPRESSION: On the sagittal images of the right hip there is apparent cortical offset just distal to the greater and lesser trochanters which is not identified in the other projections and may be artif actual in nature related to patient motion however clinical correlation is recommended. No other joelle dence for fracture is seen. Other findings as noted above. TECHNICAL DOCUMENTATION: JOB ID: [id number] Quality ID # [id number]: Final reports with documentation of one or more dose reduction techniques (e.g., Au tomated exposure control, adjustment of the mA and/or kV according to patient size, use of iterative reconstruction technique) 2010 [employer]- All Rights Reserved
[2017-04-15] MEDS ORDERED: MORPHINE SULFATE 10 MG/ML INJ IV PRN (20:18)
[2017-04-15 20:29] LABS: ADD ON TESTING BLD IN LAB ACKNOWLEDGE
[2017-04-15] MEDS ORDERED: ENOXAPARIN SODIUM INJ 40 MG/0.4 ML DISP.SYRIN SUBCUT ONE (20:30)
[2017-04-15 20:51] LABS: ALANINE AMINOTRANSFERASE 47 U/L (21-72); ALBUMIN 3.9 g/dL (3.5-5.0); ALKALINE PHOSPHATASE 122 U/L (38-126); ASPARTATE AMINO TRANSFERASE 36 U/L (17-59); BILIRUBIN,DIRECT 0.3 mg/dL (0.0-0.4); BILIRUBIN,TOTAL 0.4 mg/dL (0.2-1.3); TOTAL PROTEIN 8.1 g/dL (6.3-8.2)
[2017-04-15] MEDS: HYDROMORPHONE HCL INJ/PF 2 MG/ML AMPULE IV PRN (23:31)
[2017-04-15] MEDS: NICOTINE 14 MG/24 HR PATCH.TD24 TD PRN (23:32)
[2017-04-16] MEDS: HYDROMORPHONE HCL INJ/PF 2 MG/ML AMPULE IV PRN ×3 (03:46→12:22)
[2017-04-16 05:15] LABS: ABSOLUTE EOSINOPHILS # (AUTO) 0.3 10^3/uL (0.0-0.6); ABSOLUTE LYMPHOCYTES (AUTO) 1.7 10^3/uL (0.5-4.7); ABSOLUTE MONOCYTES (AUTO) 0.9 10^3/uL (0.1-1.4); ABSOLUTE NEUT (AUTO) 6.9 10^3/uL (1.7-8.2); BASOPHILS % (AUTO) 0.5 % (0-2); EOSINOPHILS % (AUTO) 2.8 % (0-6); HEMATOCRIT 35.8 % (37.9-51.0); HEMOGLOBIN 12.2 g/dL (13.5-17.0); HGB HCT DIFFERENCE 0.8; LYMPHOCYTES % (AUTO) 17.4 % (13-45); MEAN CORPUSCULAR HEMOGLOBIN 27.8 pg (27.0-33.4); MEAN CORPUSCULAR HGB CONC 34.2 g/dL (32.0-36.0); MEAN CORPUSCULAR VOLUME 81 fl (80-97); MONOCYTES % (AUTO) 9.2 % (3-13); SEGMENTED NEUTROPHILS % (AUTO) 70.1 % (42-78); WHITE BLOOD COUNT 9.8 10^3/uL (4.0-10.5)
[2017-04-16 05:34] LABS: ANION GAP 10 (5-19); BLOOD UREA NITROGEN 13 mg/dL (7-20); CALCIUM 9.4 mg/dL (8.4-10.2); CARBON DIOXIDE 23 mmol/L (22-30); CHLORIDE 106 mmol/L (98-107); CREATININE RESULT 0.76 mg/dL (0.52-1.25); MAGNESIUM 1.9 mg/dL (1.6-2.3); POTASSIUM 3.9 mmol/L (3.6-5.0); SODIUM 138.7 mmol/L (137-145)
[2017-04-16 05:57] LABS: GLUCOSE 213 mg/dL (75-110)
[2017-04-16] MEDS: ENOXAPARIN SODIUM INJ 40 MG/0.4 ML DISP.SYRIN SUBCUT SCH (12:22)
[2017-04-16] MEDS ORDERED: (PENDING PHARMACY ID) (Insulin Aspart [Novolog Flexpen] 10 UNITS) SQ PRN (12:48)
--- NOTE | 2017-04-16 12:52 | PDOC PROGRESS REPORT ---
Subjective Progress Note for:: 04/16/17 Subjective:: This is a follow-up visit for urinary tract infection. The patient is quite concerned that he has not received his home doses of narcotic medications. Will await pharmacy to verify this information. He still complains of groin pain. Physical Exam Vital Signs: Temp Pulse Resp BP Pulse Ox 97.8 F 82 18 143/82 H 97 04/16/17 08:00 04/16/17 08:00 04/16/17 08:00 04/16/17 08:00 04/16/17 08:00 Intake & Output 04/15/17 04/16/17 04/17/17 06:59 06:59 06:59 Intake Total 540 Output Total 350 Balance 190 Weight 177.1 kg GENERAL: This is a well-developed well-nourished morbidly obese white male resting in bed currently in no acute distress. HEART: Regular rate and rhythm. No murmurs, rubs or gallops. LUNGS: clear to auscultation bilaterally with equal rise and fall of the chest. ABDOMEN: Soft, nontender, nondistended with normoactive bowel sounds : Clark catheter in place draining xuan colored urine. EXTREMETIES: No clubbing, cyanosis or edema. 2+ peripheral pulses bilaterally. NEURO: Awake, alert and oriented 3. Cranial nerves II through XII are grossly intact. Results Laboratory Results: 04/16/17 04:59 04/16/17 04:59 04/16/17 04/16/17 04:59 04:59 WBC 9.8 RBC 4.40 Hgb 12.2 L Hct 35.8 L MCV 81 MCH 27.8 MCHC 34.2 RDW 16.0 H Plt Count 269 Seg Neutrophils % 70.1 Lymphocytes % 17.4 Monocytes % 9.2 Eosinophils % 2.8 Basophils % 0.5 Absolute Neutrophils 6.9 Absolute Lymphocytes 1.7 Absolute Monocytes 0.9 Absolute Eosinophils 0.3 Absolute Basophils 0.0 Sodium 138.7 Potassium 3.9 Chloride 106 Carbon Dioxide 23 Anion Gap 10 BUN 13 Creatinine 0.76 Est GFR ( Amer) > 60 Est GFR (Non-Af Amer) > 60 Glucose 213 H Calcium 9.4 Magnesium 1.9 Impressions: Hip/Pelvis X-Ray 04/15/17 16:33 IMPRESSION: Portion of the right femoral neck is not well visualized as noted above. No obvious fractures are identified. Other findings as noted above Pelvis CT 04/15/17 18:37 IMPRESSION: On the sagittal images of the right hip there is apparent cortical offset just distal to the greater and lesser trochanters which is not identified in the other projections and may be artifactual in nature related to patient motion however clinical correlation is recommended. No other evidence for fracture is seen. Other findings as noted above. Assessment & Plan - Diagnosis (1) Urinary tract infection associated with indwelling urethral catheter Qualifiers: Encounter type: initial encounter Qualified Code(s): T83.511A - Infection and inflammatory reaction due to indwelling urethral catheter, initial encounter ; N39.0 - Urinary tract infection, site not specified (4) Accidental fall Qualifiers: Encounter type: initial encounter Qualified Code(s): W19.XXXA - Unspecified fall, initial encounter (6) Chronic pain Qualifiers: Chronic pain type: chronic pain syndrome Qualified Code(s): G89.4 - Chronic pain syndrome
[2017-04-16] MEDS: BACLOFEN 20 MG TABLET PO SCH ×2 (14:58→21:44)
[2017-04-16] MEDS: INSULIN LISPRO 100 UNIT/ML 3 ML VIAL SUBCUT PRN (14:58)
[2017-04-16] MEDS: GABAPENTIN 400 MG CAPSULE PO SCH ×2 (14:58→21:44)
[2017-04-16] MEDS: HYDROMORPHONE HCL 2 MG TABLET PO PRN ×2 (16:14→20:17)
[2017-04-16] MEDS: CEFTRIAXONE 2 GM/D5W RTU 2 GM/50 ML RTUPB IV SCH (18:11)
--- NOTE | 2017-04-16 18:46 | PDOC CONSULTATION ---
Consultation Consult Date: 04/16/17 Consult reason:: Right hip pain History of Present Illness Admission Date/PCP: 04/15/17 18:48 CRISTINO DIGGS Patient complains of: Right hip pain History of Present Illness: 36-year-old gentleman who is had history of paralysis due to epidural abscess and surgery 2 years ago. Last several months patient sensation and motor skills are slowly improving and returning. Unfortunately he still requires bracing and assistance to ambulate and was transferred from the wheelchair where he fell and injured his right hip. Complains of groin pain. States when he was attempting to ambulate he was having significant pain in the groin. Complains of pain to be sharp. 5 out of 5 with motion and ambulation. At rest only 1 out of 5. Past Medical History Endocrine Medical History: Reports: Diabetes Mellitus Type 2 Psychiatric Medical History: Reports: Depression, Tobacco Dependency Past Surgical History Past Surgical History: Reports: Other - Intervention for epidural abscess. Social History Lives with: Spouse/Significant other Smoking Status: Current Every Day Smoker - The patient has been smoking since the age of 21. At worst he was up to 1 pack per day. Cigarettes Packs Per Day: 8 Frequency of Alcohol Use: None Hx Recreational Drug Use: No Drugs: None Hx Prescription Drug Abuse: No - Advance Directive Resuscitation Status: Full Code Family History Family History: None Parental Family History Reviewed: No Children Family History Reviewed: No Sibling(s) Family History Reviewed.: No Medication/Allergy Home Medications: Baclofen [Baclofen 20 mg Tablet] 20 mg PO Q8 04/15/17 Duloxetine HCl [Cymbalta] 60 mg PO DAILY 04/15/17 Gabapentin [Neurontin 400 mg Capsule] 400 mg PO Q8 04/15/17 Hydromorphone HCl [Dilaudid 2 mg Tablet] 2 mg PO Q4HP PRN 04/15/17 Insulin Aspart [Novolog Flexpen] 10 units SQ ACP PRN 04/15/17 Insulin Glargine,Hum.rec.anlog [Lantus Solostar] 45 units SQ Q12 04/15/17 Melatonin/Pyridoxine HCl (B6) [Melatonin 10 mg Tablet] 10 mg PO QHS 04/15/17 Allergies/Adverse Reactions: dactinomycin Allergy (Verified 04/15/17 16:31) Penicillins Allergy (Verified 04/15/17 16:31) Review of Systems All systems: reviewed and no additional remarkable complaints except as stated Physical Exam Vital Signs: Temp Pulse Resp BP Pulse Ox 36.7 C 79 18 140/69 H 96 04/16/17 15:48 04/16/17 15:48 04/16/17 15:48 04/16/17 15:48 04/16/17 15:48 Intake & Output 04/15/17 04/16/17 04/17/17 06:59 06:59 06:59 Intake Total 540 Output Total 350 Balance 190 Weight 177.1 kg General appearance: PRESENT: no acute distress, morbidly obese Head exam: PRESENT: atraumatic Eye exam: PRESENT: EOMI. ABSENT: nystagmus, periorbital swelling Adult Front & Back Image: 1 - Tendon palpation over the right groin and pelvis. Attempted flexion and extension of the hip causes pain in the groin. No tenderness over the greater trochanter. No obvious deformity of the right lower extremity. Station grossly intact to light touch. Patient able to move the digits in his toes. Good capillary refill. Results Laboratory Results: 04/16/17 04:59 04/16/17 04:59 04/16/17 04/16/17 04:59 04:59 WBC 9.8 RBC 4.40 Hgb 12.2 L Hct 35.8 L MCV 81 MCH 27.8 MCHC 34.2 RDW 16.0 H Plt Count 269 Seg Neutrophils % 70.1 Lymphocytes % 17.4 Monocytes % 9.2 Eosinophils % 2.8 Basophils % 0.5 Absolute Neutrophils 6.9 Absolute Lymphocytes 1.7 Absolute Monocytes 0.9 Absolute Eosinophils 0.3 Absolute Basophils 0.0 Sodium 138.7 Potassium 3.9 Chloride 106 Carbon Dioxide 23 Anion Gap 10 BUN 13 Creatinine 0.76 Est GFR ( Amer) > 60 Est GFR (Non-Af Amer) > 60 Glucose 213 H Calcium 9.4 Magnesium 1.9 Impressions: Hip/Pelvis X-Ray 04/15/17 16:33 IMPRESSION: Portion of the right femoral neck is not well visualized as noted above. No obvious fractures are identified. Other findings as noted above Pelvis CT 04/15/17 18:37 IMPRESSION: On the sagittal images of the right hip there is apparent cortical offset just distal to the greater and lesser trochanters which is not identified in the other projections and may be artifactual in nature related to patient motion however clinical correlation is recommended. No other evidence for fracture is seen. Other findings as noted above. Status: Image reviewed by me Assessment & Plan - Plan Summary Plan Summary: 36-year-old morbidly obese gentleman with right hip pain and a CT scan concerning for greater trochanter fracture. I would like to order an MRI to make sure it is not a intertrochanteric hip fracture. Although unusual for a 36 -year-old gentleman he was a nonambulator for 2 years due to his paralysis. He just recently started ambulation the last several months. I do suspect there should be some disuse osteopenia and in conjunction with his morbid obesity could have caused a fracture. Meantime bedrest. Will order an MRI of the hip. Continue pain control.
[2017-04-16] MEDS: INSULIN GLARGINE,HUM.REC.ANLOG 300 UNIT/3 ML INSULN.PEN SUBCUT SCH (21:49)
[2017-04-16] MEDS ORDERED: (PENDING PHARMACY ID) (Melatonin/Pyridoxine Hcl (B6) [Melatonin 10 Mg Tablet] 10 MG) PO SCH (22:00)
[2017-04-17] MEDS: HYDROMORPHONE HCL 2 MG TABLET PO PRN ×6 (00:17→21:29)
[2017-04-17] MEDS: BACLOFEN 20 MG TABLET PO SCH ×3 (04:47→21:29)
[2017-04-17] MEDS: GABAPENTIN 400 MG CAPSULE PO SCH ×3 (04:48→21:29)
[2017-04-17] MEDS ORDERED: LORAZEPAM INJ 2 MG/1 ML VIAL ONE (07:11)
--- NOTE | 2017-04-17 07:35 | Physician Advisory Note ---
Physician Advisor ProgressNote .: Pursuant to the plan for Deya Heredia, I have reviewed the medical record for this patient. Physician Advisor Statement: Please consider documentin. "Acute Rt hip/groin pain, possibly due to ____" 2. "chronic paraplegia" 3. "obesity w/BMI 61.7" (continue to document in each note, & mention how it impacts his care) 4. minor thing, but H&P (& now consult note too) states he smokes 8 packs a day - please correct this if incorrect THanks! CK
[2017-04-17] MEDS: DULOXETINE HCL 30 MG CAPSULE.DR PO SCH (09:06)
[2017-04-17] MEDS: INSULIN LISPRO 100 UNIT/ML 3 ML VIAL SUBCUT PRN ×3 (09:08→17:29)
[2017-04-17] MEDS: ENOXAPARIN SODIUM INJ 40 MG/0.4 ML DISP.SYRIN SUBCUT SCH (09:14)
[2017-04-17] MEDS: INSULIN GLARGINE,HUM.REC.ANLOG 300 UNIT/3 ML INSULN.PEN SUBCUT SCH ×2 (09:15→21:31)
[2017-04-17] MEDS: LORAZEPAM INJ 2 MG/1 ML VIAL IV PRN ×2 (09:16→12:36)
--- NOTE | 2017-04-17 16:20 | RADIOLOGY REPORT (SQ) ---
EXAM DESCRIPTION: MRI RT LOWER JOINT WITHOUT COMPLETED DATE/TIME: 04/17/2017 4:00 pm REASON FOR STUDY: Right Hip pain COMPARISON: None. TECHNIQUE: Righthip images acquired and stored on PACS. Multiplanar images to include fat sensitive sequences as T1, fluid sensitive sequences as T2/STIR and gradient echo sequences. Large FOV fat and fluid sensitive sequences include pelvis and opposite hip. LIMITATIONS: Motion. Body habitus. FINDINGS: No evidence of fracture. Mild osteoarthritic changes in both hips. No evidence of avascu lar necrosis. No bursal fluid collections. Piriformis is symmetric. There is a Clark catheter in urinary bladder. IMPRESSION: No acute findings in the right hip. TECHNICAL DOCUMENTATION: JOB ID: [id number] [employer]- All Rights Reserved
--- NOTE | 2017-04-17 16:50 | PDOC PROGRESS REPORT ---
Subjective Progress Note for:: 04/17/17 Subjective:: Patient resting comfortably in bed. No acute issues overnight. Patient just was able to complete his MRI of his right hip. Physical Exam Vital Signs: Temp Pulse Resp BP Pulse Ox 36.7 C 83 17 135/58 H 92 04/17/17 16:13 04/17/17 16:13 04/17/17 16:13 04/17/17 16:13 04/17/17 16:13 Intake & Output 04/16/17 04/17/17 04/18/17 06:59 06:59 06:59 Intake Total 540 2320 720 Output Total 350 2150 700 Balance 190 170 20 Weight 177.1 kg 178.6 kg General appearance: PRESENT: no acute distress, morbidly obese Adult Front & Back Image: 1 - Continues to have groin pain with range of motion of the hip. No tenderness to palpation on the greater trochanter. Still has gross sensation to light touch distally and able to extend and flex the ankle although limited. Capillary refill. Results Laboratory Results: 04/16/17 04:59 04/16/17 04:59 Impressions: Hip/Pelvis X-Ray 04/15/17 16:33 IMPRESSION: Portion of the right femoral neck is not well visualized as noted above. No obvious fractures are identified. Other findings as noted above Pelvis CT 04/15/17 18:37 IMPRESSION: On the sagittal images of the right hip there is apparent cortical offset just distal to the greater and lesser trochanters which is not identified in the other projections and may be artifactual in nature related to patient motion however clinical correlation is recommended. No other evidence for fracture is seen. Other findings as noted above. Lower Extremity MRI 04/17/17 08:00 IMPRESSION: No acute findings in the right hip. Assessment & Plan - Plan Summary Plan Summary: 36-year-old gentleman who had an abnormal CT scan of the right hip. MRI today done does not show any fluid collection or fracture on the right hip. Will await the radiologist's final reading to confirm what I am able to see for myself. If negative patient can be weight-bear as tolerated. Physical therapy and follow-up with us in the office if his pain persists. MRI is negative for fracture. Patient has a contusion versus a groin pull. No symptoms can be treated nonoperatively and as an outpatient.
[2017-04-17] MEDS: CEFTRIAXONE 2 GM/D5W RTU 2 GM/50 ML RTUPB IV SCH (17:20)
--- NOTE | 2017-04-17 21:45 | PDOC PROGRESS REPORT ---
Subjective Progress Note for:: 04/17/17 Subjective:: This is a follow-up visit for urinary tract infection. The patient was seen today at bedside and was quite tearful. He is going through a lot of social issues at home right now. These include issues with trying to get more time in with his 5-year-old son. They also include the thought of having to have surgery on his hip or either be bedbound for the next 2 months. The patient has already gone down once it attempts to get an MRI. However, the MRI machine lost power and the patient had to be sent back upstairs. On the second attempt to get an MRI the patient got bumped for more emergent MRI down in the emergency room. He is still waiting for the third attempt to have his hip imaged. Physical Exam Vital Signs: Temp Pulse Resp BP Pulse Ox 97.7 F 79 20 149/60 H 92 04/17/17 21:00 04/17/17 21:00 04/17/17 21:00 04/17/17 21:00 04/17/17 16:13 Intake & Output 04/16/17 04/17/17 04/18/17 06:59 06:59 06:59 Intake Total 540 2320 830 Output Total 350 2150 700 Balance 190 170 130 Weight 177.1 kg 178.6 kg GENERAL: This is a well-developed well-nourished morbidly obese white male resting in bed currently in no acute distress. HEART: Regular rate and rhythm. No murmurs, rubs or gallops. LUNGS: clear to auscultation bilaterally with equal rise and fall of the chest. ABDOMEN: Soft, nontender, nondistended with normoactive bowel sounds : Clark catheter in place draining xuan colored urine. EXTREMETIES: No clubbing, cyanosis or edema. 2+ peripheral pulses bilaterally. NEURO: Awake, alert and oriented 3. Cranial nerves II through XII are grossly intact. Psych: Tearful at the bedside. Results Laboratory Results: 04/16/17 04:59 04/16/17 04:59 Impressions: Hip/Pelvis X-Ray 04/15/17 16:33 IMPRESSION: Portion of the right femoral neck is not well visualized as noted above. No obvious fractures are identified. Other findings as noted above Pelvis CT 04/15/17 18:37 IMPRESSION: On the sagittal images of the right hip there is apparent cortical offset just distal to the greater and lesser trochanters which is not identified in the other projections and may be artifactual in nature related to patient motion however clinical correlation is recommended. No other evidence for fracture is seen. Other findings as noted above. Lower Extremity MRI 04/17/17 08:00 IMPRESSION: No acute findings in the right hip. Assessment & Plan - Diagnosis (1) Urinary tract infection associated with indwelling urethral catheter Qualifiers: Encounter type: initial encounter Qualified Code(s): T83.511A - Infection and inflammatory reaction due to indwelling urethral catheter, initial encounter ; N39.0 - Urinary tract infection, site not specified Plan: The patient's cultures have grown out Proteus mirabilis. Now we have a total of 3 organisms in the urine on 3 different cultures from 04/05 through this admission. Thus far each organism is susceptible to Rocephin. My hope would be to transition him to home with IV antibiotics for the duration of 7-10 days. (2) Ambulatory dysfunction Plan: Chronic paralysis. The patient suffered epidural abscess back in 2014 with subsequent paralysis and neurogenic bladder. He has been through 8 months of rehab. My digits is to get him home as quickly as possible so that he does not lose any function. Over the last month he is been able to regain his ability to walk using braces and a rolling chair. I am going to consult physical therapy while he is here. (3) Diabetes 1.5, managed as type 2 Plan: Continue home medications. Will begin sliding scale insulin. With before meals at bedtime blood sugar checks. ADA diet. (4) Accidental fall Qualifiers: Encounter type: initial encounter Qualified Code(s): W19.XXXA - Unspecified fall, initial encounter Plan: Hip and pelvis x-rays show portion of the right femoral neck is not well visualized no obvious fractures identified. CT scan is not definitive. MRI has been ordered by the orthopedic registered nurse surgical services. Come of the studies and the patient will not have to be bedbound nor go through a surgical procedure. He is quite upset at the prospect of this. We await results of this. Hopefully nothing will become of this. (5) Morbid obesity Plan: The patient has lost 70 pounds thus far. He is trying to lose 100 more. Continue weight loss through dietary changes and any exercise that he can achieve considering his current condition. (6) Chronic pain Qualifiers: Chronic pain type: chronic pain syndrome Qualified Code(s): G89.4 - Chronic pain syndrome Plan: Chronic pain with opioid dependence. Continue home medications with Dilaudid. - Time Time Spent with patient: 15-24 minutes - Inpatient Certification Medical Necessity: Need for IV Antibiotics
[2017-04-18] MEDS: HYDROMORPHONE HCL 2 MG TABLET PO PRN ×2 (01:28→09:44)
[2017-04-18] MEDS: BACLOFEN 20 MG TABLET PO SCH ×3 (06:46→21:35)
[2017-04-18] MEDS: GABAPENTIN 400 MG CAPSULE PO SCH ×3 (07:06→21:35)
[2017-04-18] MEDS: INSULIN LISPRO 100 UNIT/ML 3 ML VIAL SUBCUT PRN ×3 (08:52→18:01)
[2017-04-18] MEDS: DULOXETINE HCL 30 MG CAPSULE.DR PO SCH (09:44)
[2017-04-18] MEDS: ENOXAPARIN SODIUM INJ 40 MG/0.4 ML DISP.SYRIN SUBCUT SCH (09:44)
[2017-04-18] MEDS: INSULIN GLARGINE,HUM.REC.ANLOG 300 UNIT/3 ML INSULN.PEN SUBCUT SCH ×2 (09:45→21:35)
[2017-04-18] MEDS: HYDROMORPHONE HCL INJ/PF 2 MG/ML AMPULE IV PRN ×2 (16:12→20:17)
[2017-04-18] MEDS: CEFTRIAXONE 2 GM/D5W RTU 2 GM/50 ML RTUPB IV SCH (17:23)
--- NOTE | 2017-04-18 18:08 | PDOC PROGRESS REPORT ---
Subjective Progress Note for:: 04/18/17 Subjective:: This is a follow-up visit for urinary tract infection. I received a call from the nursing staff saying that the patient's nurse witnessed the patient pulling a syringe from underneath his blanket and cheeking his Dilaudid pill. She stated to me that the patient pulled the Dilaudid pill out of his mouth put in a couple water to dissolve the tablet and then pull a syringe from underneath his blankets. The nurse left the room and did not actually witnessed him shooting into his IV. However, she told me that he shot the medication into his IV. She also states that the patient's fianc has been telling the nursing staff for the last couple of days that the patient has been doing this. I gave orders for security to be called and for his medications to be switched to IV only. At 3:00 I received a call back from the nurse tell me that the patient was yelling that he wanted his pain medications. I have presumed that the patient was aware of what the nurse had explained to me about what she saw. When I went up to the room security had not yet arrived and I found out that the patient had no knowledge of these accusations. The nurse sheep farm manager was present as well as the patient's nurse. Security arrived on the scene and notify me that they are able to search the patient's room but not his personal property. I was present when the airline security representative searched the patient's room and they found 1 tablet between the patient's bed rail and mattress. We have identified this tablet to be 2 mg pill of Dilaudid. The patient outright denies this. He is upset that his nurse did need to confront him about her accusations and offer him the opportunity to explain himself or deny her accusations. He is fired his nurse. I allowed the patient to vent. He stated many reasons why the accusations were false. He also stated that 1 of the pills likely dropped in between the mattress in the middle of the night when he was most tired. Recall that the patient had been asking for his pills and not IV medications on admission. His point is that he would not have asked for pills if he really wanted to shoot up in his IV. after listening to him vent, I explained to the patient that I could no longer give him pills because of the situation. I explained that understood all of his points. I explained that we can only give him his medicines from this point going forward by IV. I explained to the patient that if he could not accept this and that he felt as though he wanted to leave it would have to be AMA (I discussed this with him specifically because of the first day of admission the patient threatened to leave AMA if he did not have his Dilaudid pills). The patient agrees to accept medications by IV although this is not what he wants. He states that he wants his urinary tract infection to get better. I agree. I believe he should stay here in the hospital for the remainder of his treatment. Physical Exam Vital Signs: Temp Pulse Resp BP Pulse Ox 97.6 F 75 20 144/69 H 96 04/18/17 12:11 04/18/17 12:11 04/18/17 12:11 04/18/17 12:11 04/18/17 12:11 Intake & Output 04/17/17 04/18/17 04/19/17 06:59 06:59 06:59 Intake Total 2320 830 112 Output Total 2150 1800 Balance 170 -970 112 Weight 178.6 kg 174.5 kg Exam was deferred today due to the issues with his medications, having security involved, etc. Results Laboratory Results: 04/16/17 04:59 04/16/17 04:59 Impressions: Hip/Pelvis X-Ray 04/15/17 16:33 IMPRESSION: Portion of the right femoral neck is not well visualized as noted above. No obvious fractures are identified. Other findings as noted above Pelvis CT 04/15/17 18:37 IMPRESSION: On the sagittal images of the right hip there is apparent cortical offset just distal to the greater and lesser trochanters which is not identified in the other projections and may be artifactual in nature related to patient motion however clinical correlation is recommended. No other evidence for fracture is seen. Other findings as noted above. Lower Extremity MRI 04/17/17 08:00 IMPRESSION: No acute findings in the right hip. Assessment & Plan - Diagnosis (1) Urinary tract infection associated with indwelling urethral catheter Qualifiers: Encounter type: initial encounter Qualified Code(s): T83.511A - Infection and inflammatory reaction due to indwelling urethral catheter, initial encounter ; N39.0 - Urinary tract infection, site not specified Plan: This is a multidrug-resistant urinary tract infection with Morganella Morganii seen in the cultures from 04/12. The patient also had Serratia and Proteus in his urine back on 04/05/2017. This is a multidrug-resistant organism. In the ER he was started on Rocephin to which the organism is susceptible. I am going to leave him on this antibiotic. I wanted to send him home with a PICC line. But after what happened today the patient will remain hospitalized for the duration of 7 days. (2) Ambulatory dysfunction Plan: The patient suffered epidural abscess back in 2014 with subsequent paralysis and neurogenic bladder. He has been through 8 months of rehab. My digits is to get him home as quickly as possible so that he does not lose any function. Over the last month he is been able to regain his ability to walk using braces and a rolling chair. Continue PT. (3) Diabetes 1.5, managed as type 2 Plan: Continue home medications. Will begin sliding scale insulin. With before meals at bedtime blood sugar checks. Begin ADA diet. (4) Accidental fall Qualifiers: Encounter type: initial encounter Qualified Code(s): W19.XXXA - Unspecified fall, initial encounter Plan: Hip and pelvis x-rays show portion of the right femoral neck is not well visualized no obvious fractures identified. CT was inconclusive. MRI shows no fracture. Patient will need rehab. (5) Morbid obesity Plan: The patient has lost 70 pounds thus far. He is trying to lose 100 more. Continue weight loss through dietary changes and any exercise that he can achieve considering his current condition. (6) Chronic pain Qualifiers: Chronic pain type: chronic pain syndrome Qualified Code(s): G89.4 - Chronic pain syndrome Plan: Chronic pain with opioid dependence. Continue Dilaudid IV only. Please see subjective for further details. - Time Time Spent with patient: 35 or more minutes - Inpatient Certification Medical Necessity: Need Close Monitoring Due to Risk of Patient Decompensation
[2017-04-19] MEDS: HYDROMORPHONE HCL INJ/PF 2 MG/ML AMPULE IV PRN ×6 (00:18→21:22)
[2017-04-19] MEDS: GABAPENTIN 400 MG CAPSULE PO SCH ×3 (05:24→21:22)
[2017-04-19] MEDS: BACLOFEN 20 MG TABLET PO SCH ×3 (05:25→21:22)
[2017-04-19] MEDS: NICOTINE 14 MG/24 HR PATCH.TD24 TD PRN (08:49)
[2017-04-19] MEDS: DULOXETINE HCL 30 MG CAPSULE.DR PO SCH (10:57)
[2017-04-19] MEDS: INSULIN GLARGINE,HUM.REC.ANLOG 300 UNIT/3 ML INSULN.PEN SUBCUT SCH ×2 (10:57→22:42)
[2017-04-19] MEDS: ENOXAPARIN SODIUM INJ 40 MG/0.4 ML DISP.SYRIN SUBCUT SCH (10:57)
[2017-04-19] MEDS: INSULIN LISPRO 100 UNIT/ML 3 ML VIAL SUBCUT PRN ×3 (12:53→22:42)
[2017-04-19] MEDS ORDERED: POLYETHYLENE GLYCOL 3350 POWDER 17 GM/1 PACKET PO PRN (14:13)
[2017-04-19] MEDS: CEFTRIAXONE 2 GM/D5W RTU 2 GM/50 ML RTUPB IV SCH (17:07)
--- NOTE | 2017-04-19 17:55 | PDOC PROGRESS REPORT ---
Subjective Progress Note for:: 04/19/17 Subjective:: Complains of constipation. Physical Exam Vital Signs: Temp Pulse Resp BP Pulse Ox 98.3 F 85 16 144/63 H 93 04/19/17 11:55 04/19/17 11:55 04/19/17 11:55 04/19/17 11:55 04/19/17 11:55 Intake & Output 04/18/17 04/19/17 04/20/17 06:59 06:59 06:59 Intake Total 830 1162 Output Total 1800 1250 Balance -970 -88 Weight 174.5 kg 177.5 kg General appearance: PRESENT: no acute distress Eye exam: PRESENT: conjunctiva pink. ABSENT: scleral icterus Mouth exam: PRESENT: moist, tongue midline Neck exam: ABSENT: JVD Respiratory exam: PRESENT: clear to auscultation kathryn. ABSENT: rales, rhonchi, wheezes Cardiovascular exam: PRESENT: RRR. ABSENT: diastolic murmur, rubs, systolic murmur GI/Abdominal exam: PRESENT: normal bowel sounds, soft. ABSENT: distended, guarding, mass, organolmegaly, rebound, tenderness Extremities exam: ABSENT: calf tenderness, clubbing, pedal edema Neurological exam: PRESENT: alert, awake, oriented to person, oriented to place , oriented to time, oriented to situation, CN II-XII grossly intact, motor sensory deficit - Decreased strength in the lower extremities. Psychiatric exam: PRESENT: appropriate affect Skin exam: PRESENT: other - Area of folliculitis in the left neck. Results Laboratory Results: 04/16/17 04:59 04/16/17 04:59 Impressions: Hip/Pelvis X-Ray 04/15/17 16:33 IMPRESSION: Portion of the right femoral neck is not well visualized as noted above. No obvious fractures are identified. Other findings as noted above Pelvis CT 04/15/17 18:37 IMPRESSION: On the sagittal images of the right hip there is apparent cortical offset just distal to the greater and lesser trochanters which is not identified in the other projections and may be artifactual in nature related to patient motion however clinical correlation is recommended. No other evidence for fracture is seen. Other findings as noted above. Lower Extremity MRI 04/17/17 08:00 IMPRESSION: No acute findings in the right hip. Assessment & Plan - Diagnosis (1) Urinary tract infection associated with indwelling urethral catheter Qualifiers: Encounter type: initial encounter Qualified Code(s): T83.511A - Infection and inflammatory reaction due to indwelling urethral catheter, initial encounter ; N39.0 - Urinary tract infection, site not specified Is this a current diagnosis for this admission?: Yes Plan: Continue with Rocephin. Will complete 7 days of IV antibiotics because of issues regarding IV safety. (2) Ambulatory dysfunction Is this a current diagnosis for this admission?: Yes Plan: Patient will need physical therapy. (3) Chronic pain Qualifiers: Chronic pain type: chronic pain syndrome Qualified Code(s): G89.4 - Chronic pain syndrome Is this a current diagnosis for this admission?: Yes Plan: Continue with Dilaudid as needed (4) Diabetes 1.5, managed as type 2 Is this a current diagnosis for this admission?: Yes Plan: Continue with sliding scale insulin. (6) Accidental fall Qualifiers: Encounter type: initial encounter Qualified Code(s): W19.XXXA - Unspecified fall, initial encounter Is this a current diagnosis for this admission?: Yes - Time Time Spent with patient: 25-34 minutes - Inpatient Certification Medical Necessity: Need for IV Antibiotics
[2017-04-20] MEDS: HYDROMORPHONE HCL INJ/PF 2 MG/ML AMPULE IV PRN ×6 (01:42→22:22)
[2017-04-20] MEDS: GABAPENTIN 400 MG CAPSULE PO SCH ×3 (05:05→22:22)
[2017-04-20] MEDS: BACLOFEN 20 MG TABLET PO SCH ×3 (05:06→22:22)
[2017-04-20 06:47] LABS: ABSOLUTE BASOPHILS # (AUTO) 0.1 10^3/uL (0.0-0.2); ABSOLUTE EOSINOPHILS # (AUTO) 0.3 10^3/uL (0.0-0.6); ABSOLUTE LYMPHOCYTES (AUTO) 2.1 10^3/uL (0.5-4.7); ABSOLUTE MONOCYTES (AUTO) 0.8 10^3/uL (0.1-1.4); ABSOLUTE NEUT (AUTO) 6.7 10^3/uL (1.7-8.2); BASOPHILS % (AUTO) 0.6 % (0-2); EOSINOPHILS % (AUTO) 2.7 % (0-6); HEMATOCRIT 37.7 % (37.9-51.0); HEMOGLOBIN 12.6 g/dL (13.5-17.0); HGB HCT DIFFERENCE 0.1; MEAN CORPUSCULAR HEMOGLOBIN 27.4 pg (27.0-33.4); MEAN CORPUSCULAR HGB CONC 33.5 g/dL (32.0-36.0); MEAN CORPUSCULAR VOLUME 82 fl (80-97); MONOCYTES % (AUTO) 8.1 % (3-13); RED BLOOD COUNT 4.61 10^6/uL (4.35-5.55); SEGMENTED NEUTROPHILS % (AUTO) 67.6 % (42-78); WHITE BLOOD COUNT 9.9 10^3/uL (4.0-10.5)
[2017-04-20 07:10] LABS: ANION GAP 8 (5-19); BLOOD UREA NITROGEN 11 mg/dL (7-20); CALCIUM 9.5 mg/dL (8.4-10.2); CARBON DIOXIDE 27 mmol/L (22-30); CHLORIDE 103 mmol/L (98-107); CREATININE RESULT 0.63 mg/dL (0.52-1.25); GLUCOSE 165 mg/dL (75-110); POTASSIUM 4.5 mmol/L (3.6-5.0); SODIUM 138.1 mmol/L (137-145)
[2017-04-20] MEDS: INSULIN GLARGINE,HUM.REC.ANLOG 300 UNIT/3 ML INSULN.PEN SUBCUT SCH ×2 (09:59→22:22)
[2017-04-20] MEDS: INSULIN LISPRO 100 UNIT/ML 3 ML VIAL SUBCUT PRN ×4 (09:59→22:22)
[2017-04-20] MEDS: DULOXETINE HCL 30 MG CAPSULE.DR PO SCH (09:59)
[2017-04-20] MEDS: ENOXAPARIN SODIUM INJ 40 MG/0.4 ML DISP.SYRIN SUBCUT SCH (09:59)
--- NOTE | 2017-04-20 17:44 | PDOC PROGRESS REPORT ---
Subjective Progress Note for:: 04/20/17 Subjective:: This is a follow-up visit for urinary tract infection. The patient seems calm. He states of course he would still prefer his medications p.o. but he is accepting IV. No acute events overnight. No current complaints. Physical Exam Vital Signs: Temp Pulse Resp BP Pulse Ox 97.9 F 60 16 156/82 H 92 04/20/17 16:10 04/20/17 16:10 04/20/17 16:10 04/20/17 16:10 04/20/17 16:10 Intake & Output 04/19/17 04/20/17 04/21/17 06:59 06:59 06:59 Intake Total 1162 2353 627 Output Total 1250 2050 800 Balance -88 303 -173 Weight 177.5 kg 179 kg GENERAL: This is a well-developed well-nourished morbidly obese white male resting in bed currently in no acute distress. HEART: Regular rate and rhythm. No murmurs, rubs or gallops. LUNGS: clear to auscultation bilaterally with equal rise and fall of the chest. ABDOMEN: Soft, nontender, nondistended with normoactive bowel sounds : Clark catheter in place draining xuan colored urine. EXTREMETIES: No clubbing, cyanosis or edema. 2+ peripheral pulses bilaterally. NEURO: Awake, alert and oriented 3. Cranial nerves II through XII are grossly intact. Results Laboratory Results: 04/20/17 06:34 04/20/17 06:34 04/20/17 04/20/17 06:34 06:34 WBC 9.9 RBC 4.61 Hgb 12.6 L Hct 37.7 L MCV 82 MCH 27.4 MCHC 33.5 RDW 16.0 H Plt Count 276 Seg Neutrophils % 67.6 Lymphocytes % 21.0 Monocytes % 8.1 Eosinophils % 2.7 Basophils % 0.6 Absolute Neutrophils 6.7 Absolute Lymphocytes 2.1 Absolute Monocytes 0.8 Absolute Eosinophils 0.3 Absolute Basophils 0.1 Sodium 138.1 Potassium 4.5 Chloride 103 Carbon Dioxide 27 Anion Gap 8 BUN 11 Creatinine 0.63 Est GFR ( Amer) > 60 Est GFR (Non-Af Amer) > 60 Glucose 165 H Calcium 9.5 Impressions: Hip/Pelvis X-Ray 04/15/17 16:33 IMPRESSION: Portion of the right femoral neck is not well visualized as noted above. No obvious fractures are identified. Other findings as noted above Pelvis CT 04/15/17 18:37 IMPRESSION: On the sagittal images of the right hip there is apparent cortical offset just distal to the greater and lesser trochanters which is not identified in the other projections and may be artifactual in nature related to patient motion however clinical correlation is recommended. No other evidence for fracture is seen. Other findings as noted above. Lower Extremity MRI 04/17/17 08:00 IMPRESSION: No acute findings in the right hip. Assessment & Plan - Diagnosis (1) Urinary tract infection associated with indwelling urethral catheter Qualifiers: Encounter type: initial encounter Qualified Code(s): T83.511A - Infection and inflammatory reaction due to indwelling urethral catheter, initial encounter ; N39.0 - Urinary tract infection, site not specified Is this a current diagnosis for this admission?: Yes Plan: This is a multidrug-resistant urinary tract infection with Morganella Morganii seen in the cultures from 04/12. The patient also had Serratia and Proteus in his urine back on 04/05/2017. This is a multidrug-resistant organism. In the ER he was started on Rocephin to which the organism is susceptible. I am going to leave him on this antibiotic. I wanted to send him home with a PICC line. After the issues on Friday. I cannot. (2) Ambulatory dysfunction Is this a current diagnosis for this admission?: Yes Plan: The patient suffered epidural abscess back in 2014 with subsequent paralysis and neurogenic bladder. He has been through 8 months of rehab. My digits is to get him home as quickly as possible so that he does not lose any function. Over the last month he is been able to regain his ability to walk using braces and a rolling chair. Continue PT. (3) Diabetes 1.5, managed as type 2 Is this a current diagnosis for this admission?: Yes Plan: Continue home medications. Will begin sliding scale insulin. With before meals at bedtime blood sugar checks. Continue ADA diet. (4) Accidental fall Qualifiers: Encounter type: initial encounter Qualified Code(s): W19.XXXA - Unspecified fall, initial encounter Is this a current diagnosis for this admission?: Yes Plan: Hip and pelvis x-rays show portion of the right femoral neck is not well visualized no obvious fractures identified. CT was inconclusive. MRI shows no fracture. Patient will need rehab. (5) Morbid obesity Plan: Weight loss through dietary exercise and exercise as tolerated (6) Chronic pain Qualifiers: Chronic pain type: chronic pain syndrome Qualified Code(s): G89.4 - Chronic pain syndrome Is this a current diagnosis for this admission?: Yes Plan: Chronic pain with opioid dependence. Continue Dilaudid IV only. Please see subjective for further details. - Time Time Spent with patient: Less than 15 minutes Anticipated discharge: Home
[2017-04-20] MEDS: CEFTRIAXONE 2 GM/D5W RTU 2 GM/50 ML RTUPB IV SCH (17:59)
[2017-04-20] MEDS ORDERED: SENNOSIDES/DOCUSATE 8.6-50 MG 1 EACH TABLET PO ONE (18:00)
[2017-04-21] MEDS: HYDROMORPHONE HCL INJ/PF 2 MG/ML AMPULE IV PRN ×6 (02:26→22:49)
[2017-04-21] MEDS: GABAPENTIN 400 MG CAPSULE PO SCH ×3 (05:33→22:50)
[2017-04-21] MEDS: BACLOFEN 20 MG TABLET PO SCH ×3 (05:33→22:50)
[2017-04-21] MEDS ORDERED: ONDANSETRON HCL INJ/PF 4 MG/2 ML SDV IV PRN (09:00)
[2017-04-21] MEDS: DULOXETINE HCL 30 MG CAPSULE.DR PO SCH (10:37)
[2017-04-21] MEDS: ENOXAPARIN SODIUM INJ 40 MG/0.4 ML DISP.SYRIN SUBCUT SCH (10:37)
[2017-04-21] MEDS: SENNOSIDES/DOCUSATE 8.6-50 MG 1 EACH TABLET PO SCH (10:39)
[2017-04-21] MEDS: INSULIN GLARGINE,HUM.REC.ANLOG 300 UNIT/3 ML INSULN.PEN SUBCUT SCH (10:45)
[2017-04-21] MEDS: INSULIN LISPRO 100 UNIT/ML 3 ML VIAL SUBCUT PRN ×3 (12:49→22:55)
--- NOTE | 2017-04-21 14:48 | PDOC PROGRESS REPORT ---
Subjective Progress Note for:: 04/21/17 Subjective:: This is a follow-up visit for urinary tract infection. The patient seems calm. No acute events overnight. No current complaints. Physical Exam Vital Signs: Temp Pulse Resp BP Pulse Ox 98 F 73 20 142/57 H 95 04/21/17 12:00 04/21/17 12:00 04/21/17 12:00 04/21/17 12:00 04/21/17 08:16 Intake & Output 04/20/17 04/21/17 04/22/17 06:59 06:59 06:59 Intake Total 2353 1252 Output Total 2049 2100 Balance 303 -848 Weight 179 kg 179.1 kg GENERAL: This is a well-developed well-nourished morbidly obese white male resting in bed currently in no acute distress. HEART: Regular rate and rhythm. No murmurs, rubs or gallops. LUNGS: clear to auscultation bilaterally with equal rise and fall of the chest. ABDOMEN: Soft, nontender, nondistended with normoactive bowel sounds : Clark catheter in place draining xuan colored urine. EXTREMETIES: No clubbing, cyanosis or edema. 2+ peripheral pulses bilaterally. NEURO: Awake, alert and oriented 3. Cranial nerves II through XII are grossly intact. Results Laboratory Results: 04/20/17 06:34 04/20/17 06:34 Impressions: Hip/Pelvis X-Ray 04/15/17 16:33 IMPRESSION: Portion of the right femoral neck is not well visualized as noted above. No obvious fractures are identified. Other findings as noted above Pelvis CT 04/15/17 18:37 IMPRESSION: On the sagittal images of the right hip there is apparent cortical offset just distal to the greater and lesser trochanters which is not identified in the other projections and may be artifactual in nature related to patient motion however clinical correlation is recommended. No other evidence for fracture is seen. Other findings as noted above. Lower Extremity MRI 04/17/17 08:00 IMPRESSION: No acute findings in the right hip. Assessment & Plan - Diagnosis (1) Ambulatory dysfunction Is this a current diagnosis for this admission?: Yes Plan: The patient suffered epidural abscess back in 2014 with subsequent paralysis and neurogenic bladder. He has been through 8 months of rehab. My digits is to get him home as quickly as possible so that he does not lose any function. Over the last month he is been able to regain his ability to walk using braces and a rolling chair. Continue PT. (2) Diabetes 1.5, managed as type 2 Is this a current diagnosis for this admission?: Yes Plan: Continue home medications. Will begin sliding scale insulin. With before meals at bedtime blood sugar checks. Continue ADA diet. (3) Accidental fall Qualifiers: Encounter type: initial encounter Qualified Code(s): W19.XXXA - Unspecified fall, initial encounter Is this a current diagnosis for this admission?: Yes Plan: Hip and pelvis x-rays show portion of the right femoral neck is not well visualized no obvious fractures identified. CT was inconclusive. MRI shows no fracture. Patient will need rehab. (4) Morbid obesity Plan: Weight loss through dietary exercise and exercise as tolerated (5) Chronic pain Qualifiers: Chronic pain type: chronic pain syndrome Qualified Code(s): G89.4 - Chronic pain syndrome Is this a current diagnosis for this admission?: Yes Plan: Chronic pain with opioid dependence. Continue Dilaudid IV only. Please see subjective for further details. - Time Time Spent with patient: 25-34 minutes - Inpatient Certification Medical Necessity: Need Close Monitoring Due to Risk of Patient Decompensation
[2017-04-21] MEDS: CEFTRIAXONE 2 GM/D5W RTU 2 GM/50 ML RTUPB IV SCH (18:17)
[2017-04-21] MEDS: POLYETHYLENE GLYCOL 3350 POWDER 17 GM/1 PACKET PO PRN (20:51)
[2017-04-21] MEDS: INSULIN GLARGINE,HUM.REC.ANLOG 1,000 UNIT/10 ML UNIT SUBCUT SCH (22:54)
[2017-04-21] MEDS ORDERED: INSULIN GLARGINE,HUM.REC.ANLOG 1,000 UNIT/10 ML UNIT SUBCUT ONE (23:04)
[2017-04-22] MEDS: GABAPENTIN 400 MG CAPSULE PO SCH ×3 (05:41→21:05)
[2017-04-22] MEDS: BACLOFEN 20 MG TABLET PO SCH ×3 (05:42→21:05)
[2017-04-22] MEDS: HYDROMORPHONE HCL INJ/PF 2 MG/ML AMPULE IV PRN ×4 (05:53→21:17)
[2017-04-22] MEDS: DULOXETINE HCL 30 MG CAPSULE.DR PO SCH (12:02)
[2017-04-22] MEDS: SENNOSIDES/DOCUSATE 8.6-50 MG 1 EACH TABLET PO SCH (12:03)
[2017-04-22] MEDS: INSULIN GLARGINE,HUM.REC.ANLOG 1,000 UNIT/10 ML UNIT SUBCUT SCH ×2 (12:03→21:04)
[2017-04-22] MEDS: ENOXAPARIN SODIUM INJ 40 MG/0.4 ML DISP.SYRIN SUBCUT SCH (12:05)
[2017-04-22] MEDS: INSULIN LISPRO 100 UNIT/ML 3 ML VIAL SUBCUT PRN ×3 (17:59→21:04)
[2017-04-22] MEDS: CEFTRIAXONE 2 GM/D5W RTU 2 GM/50 ML RTUPB IV SCH (18:00)
[2017-04-23] MEDS: HYDROMORPHONE HCL INJ/PF 2 MG/ML AMPULE IV PRN ×6 (01:08→22:33)
[2017-04-23] MEDS: BACLOFEN 20 MG TABLET PO SCH ×3 (05:08→22:32)
[2017-04-23] MEDS: GABAPENTIN 400 MG CAPSULE PO SCH ×2 (05:08→13:39)
[2017-04-23] MEDS: INSULIN GLARGINE,HUM.REC.ANLOG 1,000 UNIT/10 ML UNIT SUBCUT SCH ×2 (10:14→22:33)
[2017-04-23] MEDS: ENOXAPARIN SODIUM INJ 40 MG/0.4 ML DISP.SYRIN SUBCUT SCH (10:14)
[2017-04-23] MEDS: DULOXETINE HCL 30 MG CAPSULE.DR PO SCH (10:17)
[2017-04-23] MEDS: SENNOSIDES/DOCUSATE 8.6-50 MG 1 EACH TABLET PO SCH (10:21)
[2017-04-23] MEDS: INSULIN LISPRO 100 UNIT/ML 3 ML VIAL SUBCUT PRN ×2 (18:11→22:32)
--- NOTE | 2017-04-23 19:43 | PDOC PROGRESS REPORT ---
Subjective Progress Note for:: 04/22/17 Subjective:: Patient is being followed up for a UTI. Culture now growing proteus mirabilis for which patient is on ceftriaxone. Patient was finally able to get some sleep today. Unfortunately patient has to be monitored with how he is taking his pain medication. Physical Exam Vital Signs: Temp Pulse Resp BP Pulse Ox 97.5 F 67 17 143/56 H 98 04/22/17 15:43 04/22/17 15:43 04/22/17 15:43 04/22/17 15:43 04/22/17 15:43 Intake & Output 04/21/17 04/22/17 04/23/17 06:59 06:59 06:59 Intake Total 1252 1651 1320 Output Total 2100 1300 3400 Balance -848 351 -2080 Weight 179.1 kg 179.1 kg 179.1 kg General appearance: PRESENT: morbidly obese Head exam: PRESENT: atraumatic, normocephalic Eye exam: PRESENT: EOMI Neck exam: PRESENT: full ROM Respiratory exam: PRESENT: clear to auscultation kathryn. ABSENT: unlabored Cardiovascular exam: PRESENT: RRR, +S2 GI/Abdominal exam: PRESENT: normal bowel sounds, soft, tenderness Rectal exam: PRESENT: deferred Gentrourinary exam: PRESENT: indwelling catheter Extremities exam: ABSENT: pedal edema Musculoskeletal exam: PRESENT: normal inspection Neurological exam: PRESENT: alert, awake, oriented to person, oriented to place , oriented to time, oriented to situation Skin exam: PRESENT: intact - Tattoos, warm Results Laboratory Results: 04/20/17 06:34 04/20/17 06:34 Impressions: Hip/Pelvis X-Ray 04/15/17 16:33 IMPRESSION: Portion of the right femoral neck is not well visualized as noted above. No obvious fractures are identified. Other findings as noted above Pelvis CT 04/15/17 18:37 IMPRESSION: On the sagittal images of the right hip there is apparent cortical offset just distal to the greater and lesser trochanters which is not identified in the other projections and may be artifactual in nature related to patient motion however clinical correlation is recommended. No other evidence for fracture is seen. Other findings as noted above. Lower Extremity MRI 04/17/17 08:00 IMPRESSION: No acute findings in the right hip. Assessment & Plan - Diagnosis (1) Accidental fall Qualifiers: Encounter type: initial encounter Qualified Code(s): W19.XXXA - Unspecified fall, initial encounter Is this a current diagnosis for this admission?: Yes Plan: The patient got stuck between bed and wheelchair and had a fall. Patient was evaluated however there is no clear evidence of trauma. Patient continues to complain of severe pain which prevents him from sleeping. Patient is on baclofen 20 3 times daily, tramadol, as needed Dilaudid and Cymbalta. (2) Ambulatory dysfunction Is this a current diagnosis for this admission?: Yes Plan: The patient suffered epidural abscess back in 2014 with subsequent paralysis and neurogenic bladder. He has been through 8 months of rehab. Attempt to discharge patient home tomorrow with home health and PT. (3) Chronic pain Qualifiers: Chronic pain type: chronic pain syndrome Qualified Code(s): G89.4 - Chronic pain syndrome Is this a current diagnosis for this admission?: Yes Plan: Continue to require current medication. Patient was witnessed tampering with his PICC line and administering medications and away they should not be to himself. Now patient is monitored closely. (4) Morbid obesity Is this a current diagnosis for this admission?: Yes Plan: Counseled on dietary changes and physical activity. (5) UTI (urinary tract infection) Qualifiers: Urinary tract infection type: site unspecified Hematuria presence: without hematuria Qualified Code(s): N39.0 - Urinary tract infection, site not specified (6) Type 2 diabetes mellitus Qualifiers: Diabetes mellitus complication status: without complication Diabetes mellitus adjunct faculty for medical terminology insulin use: with adjunct faculty for medical terminology use Qualified Code(s): E11.9 - Type 2 diabetes mellitus without complications; Z79.4 - rn long term care (current) use of insulin Is this a current diagnosis for this admission?: Yes Plan: Continue basal bolus insulin and monitor - Time Time Spent with patient: Less than 15 minutes Anticipated discharge: Home with Homehealth Within: within 72 hours
--- NOTE | 2017-04-23 19:49 | PDOC PROGRESS REPORT ---
Subjective Progress Note for:: 04/23/17 Subjective:: Patient is being followed up for a UTI. Culture now growing proteus mirabilis for which patient is on ceftriaxone. He reports still having a lot of pain and not able to sleep. Patient is tearful. Patient also complains of pus from his Clark site. She states he does not have urologist. Patient is also worried about when he is discharged how will he be able to get his medications. Physical Exam Vital Signs: Temp Pulse Resp BP Pulse Ox 97.9 F 71 20 154/61 H 96 04/23/17 15:50 04/23/17 15:50 04/23/17 15:50 04/23/17 15:50 04/23/17 15:50 Intake & Output 04/22/17 04/23/17 04/24/17 06:59 06:59 06:59 Intake Total 1651 3970 480 Output Total 1300 4900 1000 Balance 351 -930 -520 Weight 179.1 kg 179.1 kg General appearance: PRESENT: mild distress, morbidly obese Head exam: PRESENT: atraumatic, normocephalic Eye exam: PRESENT: EOMI Mouth exam: PRESENT: moist Neck exam: PRESENT: full ROM Respiratory exam: PRESENT: clear to auscultation kathryn Cardiovascular exam: PRESENT: RRR, +S1, +S2 GI/Abdominal exam: PRESENT: normal bowel sounds, soft, tenderness - Numbness of the lower abdomen Rectal exam: PRESENT: deferred Extremities exam: ABSENT: pedal edema Neurological exam: PRESENT: alert, altered, awake, oriented to person, oriented to place, oriented to time, oriented to situation Psychiatric exam: PRESENT: other - Tearful Skin exam: PRESENT: intact - Tattooed, warm, other Results Laboratory Results: 04/20/17 06:34 04/20/17 06:34 Impressions: Hip/Pelvis X-Ray 04/15/17 16:33 IMPRESSION: Portion of the right femoral neck is not well visualized as noted above. No obvious fractures are identified. Other findings as noted above Pelvis CT 04/15/17 18:37 IMPRESSION: On the sagittal images of the right hip there is apparent cortical offset just distal to the greater and lesser trochanters which is not identified in the other projections and may be artifactual in nature related to patient motion however clinical correlation is recommended. No other evidence for fracture is seen. Other findings as noted above. Lower Extremity MRI 04/17/17 08:00 IMPRESSION: No acute findings in the right hip. Assessment & Plan - Diagnosis (1) Accidental fall Qualifiers: Encounter type: initial encounter Qualified Code(s): W19.XXXA - Unspecified fall, initial encounter Is this a current diagnosis for this admission?: Yes Plan: The patient got stuck between bed and wheelchair and had a fall. Patient was evaluated however there is no clear evidence of trauma. Patient continues to complain of severe pain which prevents him from sleeping. Patient is on baclofen 20 3 times daily, tramadol, as needed Dilaudid and Cymbalta. Patient is encouraged to work with PT (2) Ambulatory dysfunction Is this a current diagnosis for this admission?: Yes Plan: The patient suffered epidural abscess back in 2014 with subsequent paralysis and neurogenic bladder. He has been through 8 months of rehab. Attempt to discharge patient home tomorrow with home health and PT. Patient is refusing to work with PT during his hospitalization. His uncooperativeness may be due to pain. Will adjust his pain medications. (3) Chronic pain Qualifiers: Chronic pain type: chronic pain syndrome Qualified Code(s): G89.4 - Chronic pain syndrome Is this a current diagnosis for this admission?: Yes Plan: Patient gabapentin was increased. Baclofen was kept at the same dose. Tramadol was added. Patient still on as needed Dilaudid. Patient was witnessed tampering with his PICC line and administering medications and away they should not be to himself. Now patient is monitored closely. (4) Morbid obesity Is this a current diagnosis for this admission?: Yes Plan: Counseled on dietary changes and physical activity. (5) UTI (urinary tract infection) Qualifiers: Urinary tract infection type: site unspecified Hematuria presence: without hematuria Qualified Code(s): N39.0 - Urinary tract infection, site not specified Is this a current diagnosis for this admission?: Yes Plan: Is currently being treated with ceftriaxone. Patient urine culture growing Proteus. Patient states he is having pus from the catheter site will consult urology if we do in fact have one in house otherwise patient would need a urologist follow-up on discharge. (6) Type 2 diabetes mellitus Qualifiers: Diabetes mellitus complication status: without complication Diabetes mellitus intermediate project manager insulin use: with intermediate project manager use Qualified Code(s): E11.9 - Type 2 diabetes mellitus without complications; Z79.4 - exterminator helper termite (current) use of insulin Is this a current diagnosis for this admission?: Yes Plan: Continue basal bolus insulin and monitor - Time Time Spent with patient: 15-24 minutes Anticipated discharge: Home with Homehealth Within: within 72 hours
[2017-04-23] MEDS: TRAMADOL HCL 50 MG TABLET PO PRN (20:03)
[2017-04-23] MEDS: GABAPENTIN 300 MG CAPSULE PO SCH (22:33)
[2017-04-24] MEDS: HYDROMORPHONE HCL INJ/PF 2 MG/ML AMPULE IV PRN ×6 (02:31→22:46)
[2017-04-24] MEDS: TRAMADOL HCL 50 MG TABLET PO PRN ×2 (05:30→22:51)
[2017-04-24] MEDS: BACLOFEN 20 MG TABLET PO SCH ×3 (05:31→22:47)
[2017-04-24] MEDS: GABAPENTIN 300 MG CAPSULE PO SCH ×3 (05:31→22:47)
--- NOTE | 2017-04-24 05:59 | RADIOLOGY REPORT (SQ) ---
EXAM DESCRIPTION: U/S SCROTUM W/DOPPLER COMPLETED DATE/TIME: 04/24/2017 5:32 am REASON FOR STUDY: SCROTAL PAIN COMPARISON: None. TECHNIQUE: Static and realtime kahn scale imaging of the scrotum and testes. Selected color Doppler and spectral images recorded to document blood flow. LIMITATIONS: Bilateral groin region not well visualized due to body habitus. FINDINGS: RIGHT: TESTICLE: Normal 2.7 cm size. Normal echotexture. Normal blood flow. No mass. Scant testicular ashley rolithiasis. EPIDIDYMIS: Normal. HYDROCELE OR VARICOCELE: Small to moderate hydrocele. HERNIA OR EXTRA-TESTICULAR MASS: No. OTHER: No other significant finding. LEFT: TESTICLE: Normal 3.3 cm cm size. Normal echotexture. Normal blood flow. No mass. Scant testicular microlithiasis. EPIDIDYMIS: Normal. HYDROCELE OR VARICOCELE: Small to moderate hydrocele. Small volume, 3 mm diameter left lateral varic ocele. HERNIA OR EXTRA-TESTICULAR MASS: No. OTHER: No other significant finding. IMPRESSION: No acute or suspicious findings. Small to moderate bilateral hydroceles. Small left va ricocele. Testicular microlithiasis. TECHNICAL DOCUMENTATION: JOB ID: [id number] [employer]- All Rights Reserved
[2017-04-24] MEDS: INSULIN GLARGINE,HUM.REC.ANLOG 1,000 UNIT/10 ML UNIT SUBCUT SCH ×2 (10:44→22:46)
[2017-04-24] MEDS: DULOXETINE HCL 30 MG CAPSULE.DR PO SCH (10:45)
[2017-04-24] MEDS: SENNOSIDES/DOCUSATE 8.6-50 MG 1 EACH TABLET PO SCH (10:46)
[2017-04-24] MEDS: ENOXAPARIN SODIUM INJ 40 MG/0.4 ML DISP.SYRIN SUBCUT SCH (10:46)
[2017-04-24] MEDS: INSULIN LISPRO 100 UNIT/ML 3 ML VIAL SUBCUT PRN ×3 (13:27→22:46)
[2017-04-24] MEDS ORDERED: FUROSEMIDE INJ/PF 100 MG/10 ML SDV IV ONE (17:00)
[2017-04-24] MEDS ORDERED: METOLAZONE 5 MG TABLET PO ONE (17:00)
[2017-04-25] MEDS: HYDROMORPHONE HCL INJ/PF 2 MG/ML AMPULE IV PRN ×4 (02:58→15:22)
--- NOTE | 2017-04-25 04:25 | PDOC PROGRESS REPORT ---
Subjective Progress Note for:: 04/24/17 Subjective:: Patient is being followed up for a UTI. Culture now growing proteus mirabilis for which patient is on ceftriaxone. Patient seen by urology who ordered an ultrasound. He would also like to see patient in his clinic. Patient states he feels better however would like something done about the swelling in his lower extremities. Patient states he takes PRN lasix and wears compression stockings every other day. Physical Exam Vital Signs: Temp Pulse Resp BP Pulse Ox 97.7 F 67 17 139/43 H 96 04/24/17 11:37 04/24/17 11:37 04/24/17 11:37 04/24/17 11:37 04/24/17 11:37 Intake & Output 04/23/17 04/24/17 04/25/17 06:59 06:59 06:59 Intake Total 3970 1140 720 Output Total 4900 3900 700 Balance -930 -2760 20 Weight 179.1 kg 183.8 kg General appearance: PRESENT: mild distress, obese Head exam: PRESENT: atraumatic, normocephalic Eye exam: PRESENT: EOMI. ABSENT: scleral icterus Mouth exam: PRESENT: moist, other - tongue piercing Neck exam: PRESENT: full ROM, JVD Respiratory exam: PRESENT: clear to auscultation kathryn, unlabored Cardiovascular exam: PRESENT: RRR, +S1, +S2 GI/Abdominal exam: PRESENT: normal bowel sounds, soft, tenderness Rectal exam: PRESENT: deferred Gentrourinary exam: PRESENT: indwelling catheter Extremities exam: PRESENT: pedal edema. ABSENT: tenderness Musculoskeletal exam: PRESENT: normal inspection Neurological exam: PRESENT: alert, awake, oriented to person, oriented to place , oriented to time, oriented to situation Psychiatric exam: PRESENT: appropriate affect, normal mood Skin exam: PRESENT: intact - tattoos, warm Results Laboratory Results: 04/20/17 06:34 04/20/17 06:34 04/24/17 16:40 Magnesium 1.8 Impressions: Hip/Pelvis X-Ray 04/15/17 16:33 IMPRESSION: Portion of the right femoral neck is not well visualized as noted above. No obvious fractures are identified. Other findings as noted above Pelvis CT 04/15/17 18:37 IMPRESSION: On the sagittal images of the right hip there is apparent cortical offset just distal to the greater and lesser trochanters which is not identified in the other projections and may be artifactual in nature related to patient motion however clinical correlation is recommended. No other evidence for fracture is seen. Other findings as noted above. Lower Extremity MRI 04/17/17 08:00 IMPRESSION: No acute findings in the right hip. Scrotum Ultrasound 04/24/17 00:00 IMPRESSION: No acute or suspicious findings. Small to moderate bilateral hydroceles. Small left varicocele. Testicular microlithiasis. Assessment & Plan - Diagnosis (1) UTI (urinary tract infection) Qualifiers: Urinary tract infection type: site unspecified Hematuria presence: without hematuria Qualified Code(s): N39.0 - Urinary tract infection, site not specified Is this a current diagnosis for this admission?: Yes Plan: Completed 7 days of treatment with ceftriaxone for proteus mirabilis. Patient at risk for recurrent UTI's due the use of an indwelling steinberg. Patient states since is spine injury he is unable to control his bladder and leaks all the time. At one point her was wearing a diaper. Patient was evaluated by urology who ordered a US of the scrotum. No signs of infection seen however did have small hydroceles. (2) Pedal edema Is this a current diagnosis for this admission?: Yes Plan: Due to immobilization however will rule out DVT despite being on DVT prophylaxis. Venous doppler ordered. Will give a dose of lasix 60mg IV and metolazone 5mg one time dose. Will give compression stockings to assist with the swelling. Will repeat lytes in the am to access for electrolyte abnormalities. (3) Accidental fall Qualifiers: Encounter type: initial encounter Qualified Code(s): W19.XXXA - Unspecified fall, initial encounter Is this a current diagnosis for this admission?: Yes Plan: The patient got stuck between bed and wheelchair and had a fall. Patient was evaluated however there is no clear evidence of trauma. Patient continues to complain of severe pain which prevents him from sleeping. He now believes his discomfort is due to the excessive swelling. Patient is on baclofen 20 3 times daily, tramadol, as needed Dilaudid and Cymbalta. Patient is encouraged to work with PT (4) Ambulatory dysfunction Is this a current diagnosis for this admission?: Yes Plan: The patient suffered epidural abscess back in 2014 with subsequent paralysis and neurogenic bladder. He has been through 8 months of rehab. Attempt to discharge patient home tomorrow with home health and PT. Patient is refusing to work with PT during his hospitalization. His uncooperativeness may be due to pain. Patient states his pain is a little better. (5) Chronic pain Qualifiers: Chronic pain type: chronic pain syndrome Qualified Code(s): G89.4 - Chronic pain syndrome Is this a current diagnosis for this admission?: Yes Plan: Patient gabapentin was increased. Baclofen was kept at the same dose. Tramadol was added. Patient still on as needed Dilaudid. Patient was witnessed tampering with his PICC line and administering medications in a way that should not be to himself. Now patient is monitored closely. No more episodes were witnessed. (6) Morbid obesity Is this a current diagnosis for this admission?: Yes Plan: Counseled on dietary changes and physical activity. (7) Type 2 diabetes mellitus Qualifiers: Diabetes mellitus complication status: without complication Diabetes mellitus exterminator helper termite insulin use: with exterminator helper termite use Qualified Code(s): E11.9 - Type 2 diabetes mellitus without complications; Z79.4 - halfway (current) use of insulin Is this a current diagnosis for this admission?: Yes Plan: Continue basal bolus insulin and monitor. Will schedule meal time insulin for better control as patient glucoses are in the 200s. A1c is 7.2. - Time Time Spent with patient: 15-24 minutes Anticipated discharge: Home with Homehealth Within: within 48 hours
[2017-04-25] MEDS: GABAPENTIN 300 MG CAPSULE PO SCH ×3 (06:08→22:16)
[2017-04-25] MEDS: BACLOFEN 20 MG TABLET PO SCH ×3 (06:08→22:16)
[2017-04-25 06:33] LABS: ANION GAP 10 (5-19); BLOOD UREA NITROGEN 12 mg/dL (7-20); CALCIUM 9.9 mg/dL (8.4-10.2); CARBON DIOXIDE 30 mmol/L (22-30); CHLORIDE 94 mmol/L (98-107); CREATININE RESULT 0.63 mg/dL (0.52-1.25); GLUCOSE 237 mg/dL (75-110); POTASSIUM 4.4 mmol/L (3.6-5.0); SODIUM 134.2 mmol/L (137-145)
[2017-04-25] MEDS ORDERED: FUROSEMIDE 40 MG TABLET PO SCH (10:00)
[2017-04-25] MEDS: DULOXETINE HCL 30 MG CAPSULE.DR PO SCH (10:37)
[2017-04-25] MEDS: SENNOSIDES/DOCUSATE 8.6-50 MG 1 EACH TABLET PO SCH (10:37)
[2017-04-25] MEDS: INSULIN LISPRO 100 UNIT/ML 3 ML VIAL SUBCUT SCH ×4 (10:43→22:17)
[2017-04-25] MEDS: INSULIN LISPRO 100 UNIT/ML 3 ML VIAL SUBCUT PRN ×3 (10:44→22:17)
[2017-04-25] MEDS: INSULIN GLARGINE,HUM.REC.ANLOG 1,000 UNIT/10 ML UNIT SUBCUT SCH ×2 (10:45→22:17)
[2017-04-25] MEDS: ENOXAPARIN SODIUM INJ 40 MG/0.4 ML DISP.SYRIN SUBCUT SCH (10:47)
--- NOTE | 2017-04-25 13:04 | PDOC PROGRESS REPORT ---
Subjective Progress Note for:: 04/25/17 Subjective:: The patient is a 36-year-old male with an indwelling Clark catheter. He presented to the hospital with a urinary tract infection. This has been treated with ceftriaxone. He did have a fall during this hospitalization but has no new injuries. The patient's insulin has recently been increased secondary to hyper glycemia. Physical Exam Vital Signs: Temp Pulse Resp BP Pulse Ox 98.3 F 89 13 148/77 H 93 04/24/17 23:53 04/24/17 23:53 04/24/17 23:53 04/24/17 23:53 04/24/17 23:53 Intake & Output 04/24/17 04/25/17 04/26/17 06:59 06:59 06:59 Intake Total 1140 1695 Output Total 3900 5201 Balance -9100 -3530 Weight 183.8 kg 183.8 kg General appearance: PRESENT: no acute distress Head exam: PRESENT: atraumatic Eye exam: PRESENT: EOMI Mouth exam: PRESENT: moist Respiratory exam: PRESENT: clear to auscultation kathryn Cardiovascular exam: PRESENT: RRR GI/Abdominal exam: PRESENT: normal bowel sounds, soft Rectal exam: PRESENT: deferred Neurological exam: PRESENT: alert, awake, CN II-XII grossly intact Results Laboratory Results: 04/20/17 06:34 04/25/17 05:36 04/24/17 04/25/17 16:40 05:36 Sodium 134.2 L Potassium 4.4 Chloride 94 L Carbon Dioxide 30 Anion Gap 10 BUN 12 Creatinine 0.63 Est GFR ( Amer) > 60 Est GFR (Non-Af Amer) > 60 Glucose 237 H Calcium 9.9 Magnesium 1.8 Impressions: Hip/Pelvis X-Ray 04/15/17 16:33 IMPRESSION: Portion of the right femoral neck is not well visualized as noted above. No obvious fractures are identified. Other findings as noted above Pelvis CT 04/15/17 18:37 IMPRESSION: On the sagittal images of the right hip there is apparent cortical offset just distal to the greater and lesser trochanters which is not identified in the other projections and may be artifactual in nature related to patient motion however clinical correlation is recommended. No other evidence for fracture is seen. Other findings as noted above. Lower Extremity MRI 04/17/17 08:00 IMPRESSION: No acute findings in the right hip. Scrotum Ultrasound 04/24/17 00:00 IMPRESSION: No acute or suspicious findings. Small to moderate bilateral hydroceles. Small left varicocele. Testicular microlithiasis. Assessment & Plan - Diagnosis (1) Accidental fall Qualifiers: Encounter type: initial encounter Qualified Code(s): W19.XXXA - Unspecified fall, initial encounter Is this a current diagnosis for this admission?: Yes Plan: There has been no sequelae. (2) Ambulatory dysfunction Is this a current diagnosis for this admission?: Yes Plan: Continue physical therapy. (3) Chronic pain Qualifiers: Chronic pain type: chronic pain syndrome Qualified Code(s): G89.4 - Chronic pain syndrome Is this a current diagnosis for this admission?: Yes Plan: The patient's pain regimen has been adjusted this hospitalization with good effect. The dose of Neurontin has been decreased and the patient no longer has lower extremity monoclonas. He has been placed on tramadol which has decreased his need for Dilaudid. (4) Morbid obesity Is this a current diagnosis for this admission?: Yes (5) Pedal edema Is this a current diagnosis for this admission?: Yes Plan: Due to obesity. Dopplers have been ordered and are pending. (6) Type 2 diabetes mellitus Qualifiers: Diabetes mellitus complication status: without complication Diabetes mellitus nursing home insulin use: with equipment operator intermodal yard use Qualified Code(s): E11.9 - Type 2 diabetes mellitus without complications; Z79.4 - ad terminal makeup operator (current) use of insulin Is this a current diagnosis for this admission?: Yes Plan: Continue basal insulin with mealtime coverage and sliding scale. (7) UTI (urinary tract infection) Qualifiers: Urinary tract infection type: site unspecified Hematuria presence: without hematuria Qualified Code(s): N39.0 - Urinary tract infection, site not specified Is this a current diagnosis for this admission?: Yes Plan: Therapy with ceftriaxone has been completed. - Time Time Spent with patient: 15-24 minutes - Inpatient Certification Medical Necessity: Need for Pain Control, Risk of Complication if Not Cared For in Hospital
[2017-04-25] MEDS: POLYETHYLENE GLYCOL 3350 POWDER 17 GM/1 PACKET PO PRN (15:23)
--- NOTE | 2017-04-25 17:02 | XCELERA REPORT ---
[address] [address] Lower Extremity Venous Evaluation Name: RAKESH RIVAS Age: 36 yrs Gender: Male : 1980 Patient Status: Inpatient Patient Location: [address] [place] [address] Study Date: 04/25/2017 09:07 AM Procedure: Color flow and duplex imaging bilaterally of the veins of the lower extremities as well as the Common Femoral veins. Reason For Study: pedal edema/immobile Ordering Physician: MAXIMINO KAM Performed By: Shelly Hargrove Right Sided Venous Evaluation Distal Femoral vein hard to see. Normal vessel filling wall to wall, compression and augmentation as well as Colour flow down to the infrageniculate veins. Left Sided Venous Evaluation Distal Femoral vein hard to see. Normal vessel filling wall to wall, compression and augmentation as well as Colour flow down to the infrageniculate veins. Interpretation Summary No duplex evidence of DVT or obstruction in the bilateral lower extremities. Distal Femoral veins hard to see. : MAXIMINO KAM > Donaldo Lange
[2017-04-25] MEDS ORDERED: TRAMADOL HCL 50 MG TABLET PO PRN (20:30)
[2017-04-25] MEDS ORDERED: HYDROMORPHONE HCL INJ/PF 2 MG/ML AMPULE ONE (20:32)
[2017-04-26] MEDS: HYDROMORPHONE HCL INJ/PF 2 MG/ML AMPULE IV PRN ×3 (04:05→12:17)
[2017-04-26] MEDS: BACLOFEN 20 MG TABLET PO SCH ×3 (05:22→22:15)
[2017-04-26] MEDS: GABAPENTIN 300 MG CAPSULE PO SCH ×3 (05:22→22:15)
[2017-04-26] MEDS: INSULIN LISPRO 100 UNIT/ML 3 ML VIAL SUBCUT PRN ×4 (08:12→22:18)
[2017-04-26] MEDS: INSULIN LISPRO 100 UNIT/ML 3 ML VIAL SUBCUT SCH ×3 (08:12→18:00)
[2017-04-26] MEDS: DULOXETINE HCL 30 MG CAPSULE.DR PO SCH (11:00)
[2017-04-26] MEDS: ENOXAPARIN SODIUM INJ 40 MG/0.4 ML DISP.SYRIN SUBCUT SCH (11:00)
[2017-04-26] MEDS: INSULIN GLARGINE,HUM.REC.ANLOG 1,000 UNIT/10 ML UNIT SUBCUT SCH ×2 (11:00→22:15)
[2017-04-26] MEDS: SENNOSIDES/DOCUSATE 8.6-50 MG 1 EACH TABLET PO SCH (11:01)
[2017-04-26] MEDS: NICOTINE 14 MG/24 HR PATCH.TD24 TD PRN (13:33)
[2017-04-26] MEDS: HYDROMORPHONE HCL 2 MG TABLET PO PRN ×3 (13:35→22:15)
--- NOTE | 2017-04-26 14:57 | PDOC PROGRESS REPORT ---
Subjective Progress Note for:: 04/26/17 Subjective:: The patient is a 36-year-old male with an indwelling Clark catheter. He presented to the hospital with a urinary tract infection. This has been treated with ceftriaxone. He did have a fall during this hospitalization but has no new injuries. The patient's insulin has recently been increased secondary to hyper glycemia. His blood sugars remain elevated this morning. The patient was slated to be discharged today to home with family support. Unfortunately, his is going to be out of the state taking care of her mother who recently became gravely ill. In addition, the patient informed me that his has asked him to leave. They are no longer a viable couple. Therefore, I have discussed this with discharge planning and we will plan on discharging to skilled facility early this week. Today, again, the patient is quite tearful. I think that he has underlying depression and I have asked psychiatry for their input. Physical Exam Vital Signs: Temp Pulse Resp BP Pulse Ox 97.9 F 69 16 143/65 H 96 04/26/17 12:12 04/26/17 12:12 04/26/17 12:12 04/26/17 12:12 04/26/17 12:12 Intake & Output 04/25/17 04/26/17 04/27/17 06:59 06:59 06:59 Intake Total 1695 1792 Output Total 5204 4050 Balance -2410 -4915 Weight 183.8 kg 183.8 kg Additional comments: The patient is a morbidly obese male who is lying in bed. His cognition appears to be normal. He can answer questions appropriately and follow commands. His facial appearance is normal. His lips and mucous membranes are moist. He does have a tongue ring in place. The patient has fairly good upper body strength and is able to lift himself up with minimal assistance. His lungs are clear to auscultation bilaterally. His cardiac exam demonstrates a regular rate and rhythm. No murmurs gallops or rubs are heard. The abdomen is obese but soft. Bowel sounds are present. He does not have any guarding or rebound. No hernias or masses are noted. The lower extremities demonstrate mild edema. Skin is warm dry and intact without lesions or rashes. Results Laboratory Results: 04/20/17 06:34 04/25/17 05:36 Impressions: Hip/Pelvis X-Ray 04/15/17 16:33 IMPRESSION: Portion of the right femoral neck is not well visualized as noted above. No obvious fractures are identified. Other findings as noted above Pelvis CT 04/15/17 18:37 IMPRESSION: On the sagittal images of the right hip there is apparent cortical offset just distal to the greater and lesser trochanters which is not identified in the other projections and may be artifactual in nature related to patient motion however clinical correlation is recommended. No other evidence for fracture is seen. Other findings as noted above. Lower Extremity MRI 04/17/17 08:00 IMPRESSION: No acute findings in the right hip. Scrotum Ultrasound 04/24/17 00:00 IMPRESSION: No acute or suspicious findings. Small to moderate bilateral hydroceles. Small left varicocele. Testicular microlithiasis. Assessment & Plan - Diagnosis (1) Accidental fall Qualifiers: Encounter type: initial encounter Qualified Code(s): W19.XXXA - Unspecified fall, initial encounter Is this a current diagnosis for this admission?: Yes Plan: There has been no sequelae. (2) Ambulatory dysfunction Is this a current diagnosis for this admission?: Yes Plan: Continue physical therapy. (3) Chronic pain Qualifiers: Chronic pain type: chronic pain syndrome Qualified Code(s): G89.4 - Chronic pain syndrome Is this a current diagnosis for this admission?: Yes Plan: The patient's pain regimen has been adjusted this hospitalization with good effect. The dose of Neurontin has been decreased and the patient no longer has lower extremity myoclonus. He has been placed on tramadol which has decreased his need for Dilaudid. The patient's dose of IV Dilaudid was decreased last night. Apparently, there was an issue with the patient trying to inject the Dilaudid into his PICC line. In preparation for discharge I have stopped IV Dilaudid, removed the patient's IVs and restarted his outpatient dose of Dilaudid. I think the patient's use of narcotics is contributing significantly to his depression. Psychiatry has been consulted. (4) Morbid obesity Is this a current diagnosis for this admission?: Yes Plan: Continue caloric restriction. (5) Pedal edema Is this a current diagnosis for this admission?: Yes Plan: Due to obesity. Dopplers performed yesterday are negative. 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 Will adjust upward today due to hyperglycemia. (7) UTI (urinary tract infection) Qualifiers: Urinary tract infection type: site unspecified Hematuria presence: without hematuria Qualified Code(s): N39.0 - Urinary tract infection, site not specified Is this a current diagnosis for this admission?: Yes Plan: Therapy with ceftriaxone has been completed. (8) Depression Qualifiers: Depression Type: unspecified Qualified Code(s): F32.9 - Major depressive disorder, single episode, unspecified Is this a current diagnosis for this admission?: Yes Plan: Psychiatry consult. - Time Time Spent with patient: 15-24 minutes - Plan Summary Plan Summary: We will now need to arrange an appropriate disposition for this patient. He cannot be discharged to home as he cannot care for himself without an able- bodied person at home. This is been discussed with discharge planning. We are try to make arrangements for discharge to skilled facility Friday.
[2017-04-26] MEDS ORDERED: DEXTROSE 50%-WATER 25 GM/50 ML DISP.SYRIN IV PRN ×2 (15:01)
[2017-04-26] MEDS ORDERED: GLUCAGON,HUMAN RECOMB 1 MG INJ IM PRN (15:01)
[2017-04-26] MEDS ORDERED: DEXTROSE 40% GEL 15 GM TUBE PO PRN ×2 (15:01)
[2017-04-26] MEDS ORDERED: QUETIAPINE FUMARATE 25 MG TABLET PO ONE (17:45)
[2017-04-26] MEDS: QUETIAPINE FUMARATE 25 MG TABLET PO SCH (22:15)
[2017-04-27] MEDS: HYDROMORPHONE HCL 2 MG TABLET PO PRN ×5 (04:11→22:19)
[2017-04-27 05:45] LABS: ANION GAP 9 (5-19); BLOOD UREA NITROGEN 17 mg/dL (7-20); CALCIUM 9.2 mg/dL (8.4-10.2); CARBON DIOXIDE 29 mmol/L (22-30); CHLORIDE 99 mmol/L (98-107); CREATININE RESULT 0.57 mg/dL (0.52-1.25); GLUCOSE 262 mg/dL (75-110); MAGNESIUM 1.8 mg/dL (1.6-2.3); POTASSIUM 3.9 mmol/L (3.6-5.0); SODIUM 136.8 mmol/L (137-145)
[2017-04-27 05:50] LABS: HEMATOCRIT 34.6 % (37.9-51.0); HEMOGLOBIN 11.8 g/dL (13.5-17.0); HGB HCT DIFFERENCE 0.8; MEAN CORPUSCULAR HEMOGLOBIN 27.5 pg (27.0-33.4); MEAN CORPUSCULAR HGB CONC 34.2 g/dL (32.0-36.0); MEAN CORPUSCULAR VOLUME 81 fl (80-97); RED BLOOD COUNT 4.31 10^6/uL (4.35-5.55); RED CELL DISTRIBUTION WIDTH 15.9 % (11.5-14.0)
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
[2017-04-27] MEDS: GABAPENTIN 300 MG CAPSULE PO SCH ×3 (05:54→22:19)
[2017-04-27] MEDS: BACLOFEN 20 MG TABLET PO SCH ×3 (05:54→22:19)
[2017-04-27] MEDS: INSULIN LISPRO 100 UNIT/ML 3 ML VIAL SUBCUT SCH ×3 (08:48→18:08)
[2017-04-27] MEDS: INSULIN LISPRO 100 UNIT/ML 3 ML VIAL SUBCUT PRN ×4 (08:48→22:19)
[2017-04-27] MEDS: ENOXAPARIN SODIUM INJ 40 MG/0.4 ML DISP.SYRIN SUBCUT SCH (09:12)
[2017-04-27] MEDS: SENNOSIDES/DOCUSATE 8.6-50 MG 1 EACH TABLET PO SCH (09:13)
[2017-04-27] MEDS: INSULIN GLARGINE,HUM.REC.ANLOG 1,000 UNIT/10 ML UNIT SUBCUT SCH (09:13)
[2017-04-27] MEDS: DULOXETINE HCL 30 MG CAPSULE.DR PO SCH (09:14)
[2017-04-27] MEDS ORDERED: INFLUENZA ADLT QUAD (36MOS+) 2017-18 VAC 0.5 ML SYR IM PRN (10:35)
--- NOTE | 2017-04-27 11:25 | PDOC PROGRESS REPORT ---
Subjective Progress Note for:: 04/27/17 Subjective:: The patient is a 36-year-old male with an indwelling Clark catheter. He presented to the hospital with a urinary tract infection. This has been treated with ceftriaxone. He did have a fall during this hospitalization but has no new injuries. The patient's insulin has recently been increased secondary to hyperglycemia. The patient was slated to be discharged today to home with family support. Unfortunately, his is going to be out of the state taking care of her mother who recently became gravely ill. In addition, the patient informed me that his has asked him to leave. They are no longer a viable couple. Therefore, I have discussed this with discharge planning and we will plan on discharging to skilled facility early this week. Today, again, the patient is quite tearful. I think that he has underlying depression and I have asked psychiatry for their input. Psychiatry did come by yesterday and recommended starting the patient on Seroquel. Today, the patient reports that he is sleepy and he thinks that this is associated with the Seroquel. Regarding his pain control he is still having pain. IV Dilaudid was discontinued yesterday. He does feel that his pain level is tolerable. Physical Exam Vital Signs: Temp Pulse Resp BP Pulse Ox 97.7 F 63 12 123/59 L 100 04/27/17 08:00 04/27/17 08:00 04/27/17 08:00 04/27/17 08:00 04/27/17 08:00 Intake & Output 04/26/17 04/27/17 04/28/17 06:59 06:59 06:59 Intake Total 1792 1865 Output Total 4050 1600 Balance -2258 265 Weight 183.8 kg 183.8 kg Additional comments: The patient is an obese white male in no distress. He was not tearful today. He was sleepy but answers questions appropriately. He wakes up easily. His facial appearance is normal. His lungs are clear to auscultation bilaterally. His cardiac exam is regular without murmurs, gallops or rubs. The abdomen is obese but soft. Bowel sounds are present in all 4 quadrants. He does not have any guarding or rebound. Lower extremities demonstrate 1+ pitting edema. He has minimal erythema with on both legs. Results Laboratory Results: 04/27/17 04:59 04/27/17 04:59 04/27/17 04/27/17 04:59 04:59 WBC 9.0 RBC 4.31 L Hgb 11.8 L Hct 34.6 L MCV 81 MCH 27.5 MCHC 34.2 RDW 15.9 H Plt Count 237 Sodium 136.8 L Potassium 3.9 Chloride 99 Carbon Dioxide 29 Anion Gap 9 BUN 17 Creatinine 0.57 Est GFR ( Amer) > 60 Est GFR (Non-Af Amer) > 60 Glucose 262 H Calcium 9.2 Magnesium 1.8 Impressions: Hip/Pelvis X-Ray 04/15/17 16:33 IMPRESSION: Portion of the right femoral neck is not well visualized as noted above. No obvious fractures are identified. Other findings as noted above Pelvis CT 04/15/17 18:37 IMPRESSION: On the sagittal images of the right hip there is apparent cortical offset just distal to the greater and lesser trochanters which is not identified in the other projections and may be artifactual in nature related to patient motion however clinical correlation is recommended. No other evidence for fracture is seen. Other findings as noted above. Lower Extremity MRI 04/17/17 08:00 IMPRESSION: No acute findings in the right hip. Scrotum Ultrasound 04/24/17 00:00 IMPRESSION: No acute or suspicious findings. Small to moderate bilateral hydroceles. Small left varicocele. Testicular microlithiasis. Assessment & Plan - Diagnosis (1) Accidental fall Qualifiers: Encounter type: initial encounter Qualified Code(s): W19.XXXA - Unspecified fall, initial encounter Is this a current diagnosis for this admission?: Yes Plan: There has been no sequelae. (2) Ambulatory dysfunction Is this a current diagnosis for this admission?: Yes Plan: Continue physical therapy. (3) Chronic pain Qualifiers: Chronic pain type: chronic pain syndrome Qualified Code(s): G89.4 - Chronic pain syndrome Is this a current diagnosis for this admission?: Yes Plan: The patient's pain regimen has been adjusted this hospitalization with good effect. The dose of Neurontin has been decreased and the patient no longer has lower extremity myoclonus. He has been placed on tramadol which has decreased his need for Dilaudid. The patient's dose of IV Dilaudid was decreased last night. Apparently, there was an issue with the patient trying to inject the Dilaudid into his PICC line. In preparation for discharge I have stopped IV Dilaudid, removed the patient's IVs and restarted his outpatient dose of Dilaudid. I think the patient's use of narcotics is contributing significantly to his depression. Psychiatry has been consulted. Seroquel has been initiated. (4) Morbid obesity Is this a current diagnosis for this admission?: Yes Plan: Continue caloric restriction. (5) Pedal edema Is this a current diagnosis for this admission?: Yes Plan: Due to obesity. Dopplers performed are negative. (6) Type 2 diabetes mellitus Qualifiers: Diabetes mellitus complication status: without complication Diabetes mellitus halfway insulin use: with halfway use Qualified Code(s): E11.9 - Type 2 diabetes mellitus without complications; Z79.4 - custodial (current) use of insulin Is this a current diagnosis for this admission?: Yes Plan: Continue basal insulin with mealtime coverage and sliding scale. I will continue to adjust doses of insulin upward due to ongoing hyperglycemia. (7) UTI (urinary tract infection) Qualifiers: Urinary tract infection type: site unspecified Hematuria presence: without hematuria Qualified Code(s): N39.0 - Urinary tract infection, site not specified Is this a current diagnosis for this admission?: Yes Plan: Therapy with ceftriaxone has been completed. Due to hyperglycemia I will order a repeat ua and culture. (8) Depression Qualifiers: Depression Type: unspecified Qualified Code(s): F32.9 - Major depressive disorder, single episode, unspecified Is this a current diagnosis for this admission?: Yes Plan: Psychiatry consult appreciated. - Time Time Spent with patient: 15-24 minutes - Inpatient Certification Medical Necessity: Risk of Complication if Not Cared For in Hospital - Patient cannot be discharged to home as he needs a caregiver 17/02. Now that his is unavailable he will need to go to SNF. Arrangements are being made.
[2017-04-27] MEDS ORDERED: DEXTROSE 40% GEL 15 GM TUBE PO PRN ×2 (11:27)
[2017-04-27] MEDS ORDERED: DEXTROSE 50%-WATER 25 GM/50 ML DISP.SYRIN IV PRN ×2 (11:27)
[2017-04-27] MEDS ORDERED: GLUCAGON,HUMAN RECOMB 1 MG INJ IM PRN (11:27)
[2017-04-27] MEDS ORDERED: QUETIAPINE FUMARATE 25 MG TABLET PO SCH (22:00)
[2017-04-27] MEDS: QUETIAPINE FUMARATE 25 MG TABLET PO SCH (22:19)
[2017-04-27] MEDS: INSULIN GLARGINE,HUM.REC.ANLOG 300 UNIT/3 ML INSULN.PEN SUBCUT SCH (22:19)
[2017-04-28] MEDS: GABAPENTIN 300 MG CAPSULE PO SCH ×3 (05:47→21:56)
[2017-04-28] MEDS: BACLOFEN 20 MG TABLET PO SCH ×3 (05:47→21:56)
[2017-04-28] MEDS: HYDROMORPHONE HCL 2 MG TABLET PO PRN ×4 (05:47→21:56)
[2017-04-28] MEDS: INSULIN LISPRO 100 UNIT/ML 3 ML VIAL SUBCUT SCH ×3 (09:03→17:48)
[2017-04-28] MEDS: SENNOSIDES/DOCUSATE 8.6-50 MG 1 EACH TABLET PO SCH (10:47)
[2017-04-28] MEDS: DULOXETINE HCL 30 MG CAPSULE.DR PO SCH (10:47)
[2017-04-28] MEDS: ENOXAPARIN SODIUM INJ 40 MG/0.4 ML DISP.SYRIN SUBCUT SCH (10:51)
[2017-04-28] MEDS: INSULIN GLARGINE,HUM.REC.ANLOG 300 UNIT/3 ML INSULN.PEN SUBCUT SCH ×2 (10:53→21:56)
--- NOTE | 2017-04-28 11:33 | PDOC PROGRESS REPORT ---
Subjective Progress Note for:: 04/28/17 Subjective:: The patient is a 36-year-old male with an indwelling Clark catheter. He presented to the hospital with a urinary tract infection. This has been treated with ceftriaxone. The patient was seen by urology during this hospitalization. A scrotal ultrasound demonstrated small to moderate hydroceles. The patient will need to follow-up with urology upon discharge. He did have a fall during this hospitalization but has no new injuries. The patient's insulin has recently been increased secondary to hyperglycemia. The patient was slated to be discharged Friday to home with family support. Unfortunately, his is going to be out of the state taking care of her mother who recently became gravely ill. In addition, the patient informed me that his has asked him to leave their home. They are no longer a viable couple. Therefore, I have discussed this with discharge planning. Initially, plans were going to be made to discharge the patient to a skilled facility in this area, however, the patient is now try to make arrangements to be discharged to a facility in [place] or to move in with his aunt who lives in [place]. He would like to reestablish with his family in [place]. The patient has shown evidence of depression during this hospitalization. Therefore , psychiatry was consulted. Seroquel has been initiated. In regards to the patient's use of narcotics he is now on only oral medications. His intravenous access has been removed. Physical Exam Vital Signs: Temp Pulse Resp BP Pulse Ox 98.0 F 66 13 128/61 H 100 04/28/17 07:52 04/28/17 07:52 04/28/17 07:52 04/28/17 07:52 04/28/17 07:52 Intake & Output 04/27/17 04/28/17 04/29/17 06:59 06:59 06:59 Intake Total 1865 1612 Output Total 1600 1475 Balance 265 137 Weight 183.8 kg 180.4 kg Additional comments: The patient is an obese white male in no distress. He does seem to be more optimistic today. He was tearful when talking about his son but overall seems to have a better outlook. His facial appearance is normal. His lungs are clear to auscultation bilaterally. His cardiac exam is regular without murmurs , gallops or rubs. The abdomen is obese but soft. Bowel sounds are present. He does not have any hernias or masses present. It was very difficult to assess for hepatomegaly. Overall, the abdomen is benign. The lower extremities are obese but he does not have pitting edema. He has mild erythema of the lower extremities. Results Laboratory Results: 04/27/17 04:59 04/27/17 04:59 Impressions: Hip/Pelvis X-Ray 04/15/17 16:33 IMPRESSION: Portion of the right femoral neck is not well visualized as noted above. No obvious fractures are identified. Other findings as noted above Pelvis CT 04/15/17 18:37 IMPRESSION: On the sagittal images of the right hip there is apparent cortical offset just distal to the greater and lesser trochanters which is not identified in the other projections and may be artifactual in nature related to patient motion however clinical correlation is recommended. No other evidence for fracture is seen. Other findings as noted above. Lower Extremity MRI 04/17/17 08:00 IMPRESSION: No acute findings in the right hip. Scrotum Ultrasound 04/24/17 00:00 IMPRESSION: No acute or suspicious findings. Small to moderate bilateral hydroceles. Small left varicocele. Testicular microlithiasis. Assessment & Plan - Diagnosis (1) Accidental fall Qualifiers: Encounter type: initial encounter Qualified Code(s): W19.XXXA - Unspecified fall, initial encounter Is this a current diagnosis for this admission?: Yes Plan: There has been no sequelae. (2) Ambulatory dysfunction Is this a current diagnosis for this admission?: Yes Plan: Continue physical therapy. I re-consulted physical therapy on 04/27/2017. (3) Chronic pain Qualifiers: Chronic pain type: chronic pain syndrome Qualified Code(s): G89.4 - Chronic pain syndrome Is this a current diagnosis for this admission?: Yes Plan: The patient's pain regimen has been adjusted this hospitalization with good effect. The dose of Neurontin has been decreased and the patient no longer has lower extremity myoclonus. He has been placed on tramadol which has decreased his need for Dilaudid. Apparently, there was an issue with the patient trying to inject po Dilaudid into his PICC line. In preparation for discharge I have stopped IV Dilaudid, removed the patient's IVs and restarted his outpatient dose of Dilaudid. I think the patient's use of narcotics is contributing significantly to his depression. Psychiatry has been consulted. Seroquel has been initiated. (4) Morbid obesity Is this a current diagnosis for this admission?: Yes Plan: Continue caloric restriction. (5) Pedal edema Is this a current diagnosis for this admission?: Yes Plan: Due to obesity. Dopplers performed are negative. 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 I will continue to adjust doses of insulin upward due to ongoing hyperglycemia. (7) UTI (urinary tract infection) Qualifiers: Urinary tract infection type: site unspecified Hematuria presence: without hematuria Qualified Code(s): N39.0 - Urinary tract infection, site not specified Is this a current diagnosis for this admission?: Yes Plan: Therapy with ceftriaxone has been completed. Due to hyperglycemia a repeat ua and culture were sent. Results are pending. (8) Depression Qualifiers: Depression Type: unspecified Qualified Code(s): F32.9 - Major depressive disorder, single episode, unspecified Is this a current diagnosis for this admission?: Yes Plan: Psychiatry consult appreciated. - Time Time Spent with patient: 15-24 minutes - Inpatient Certification Medical Necessity: Risk of Complication if Not Cared For in Hospital - Patient cannot be discharged to home without a hydroelectric mechanic. Arrangements are being made to discharge to care of a family member (Aunt in [place]) or to SNF.
[2017-04-28] MEDS: INSULIN LISPRO 100 UNIT/ML 3 ML VIAL SUBCUT PRN ×2 (17:58→21:56)
[2017-04-28] MEDS: QUETIAPINE FUMARATE 25 MG TABLET PO SCH (21:56)
[2017-04-29] MEDS: HYDROMORPHONE HCL 2 MG TABLET PO PRN ×5 (02:31→21:15)
[2017-04-29] MEDS: GABAPENTIN 300 MG CAPSULE PO SCH ×3 (05:44→21:15)
[2017-04-29] MEDS: BACLOFEN 20 MG TABLET PO SCH ×3 (05:44→21:15)
[2017-04-29] MEDS: INSULIN LISPRO 100 UNIT/ML 3 ML VIAL SUBCUT SCH ×3 (07:48→16:40)
[2017-04-29] MEDS: INSULIN LISPRO 100 UNIT/ML 3 ML VIAL SUBCUT PRN ×3 (07:52→23:30)
[2017-04-29] MEDS: DULOXETINE HCL 30 MG CAPSULE.DR PO SCH (10:29)
[2017-04-29] MEDS: SENNOSIDES/DOCUSATE 8.6-50 MG 1 EACH TABLET PO SCH (10:29)
[2017-04-29] MEDS: INSULIN GLARGINE,HUM.REC.ANLOG 300 UNIT/3 ML INSULN.PEN SUBCUT SCH ×2 (10:30→21:16)
[2017-04-29] MEDS: ENOXAPARIN SODIUM INJ 40 MG/0.4 ML DISP.SYRIN SUBCUT SCH (10:33)
--- NOTE | 2017-04-29 17:27 | PDOC PROGRESS REPORT ---
Subjective Progress Note for:: 04/29/17 Subjective:: Pt states that he is doing better. Physical Exam Vital Signs: Temp Pulse Resp BP Pulse Ox 98.0 F 73 16 144/55 H 98 04/29/17 11:12 04/29/17 11:12 04/29/17 11:12 04/29/17 11:12 04/29/17 11:12 Intake & Output 04/28/17 04/29/17 04/30/17 06:59 06:59 06:59 Intake Total 1612 2077 860 Output Total 1475 2025 600 Balance 137 52 260 Weight 180.4 kg 180.3 kg General appearance: PRESENT: no acute distress, well-developed, well-nourished Head exam: PRESENT: atraumatic, normocephalic Eye exam: PRESENT: conjunctiva pink, EOMI. ABSENT: scleral icterus Ear exam: PRESENT: normal external ear exam Mouth exam: PRESENT: moist, tongue midline Neck exam: ABSENT: carotid bruit, JVD, lymphadenopathy, thyromegaly Respiratory exam: PRESENT: clear to auscultation kathryn. ABSENT: rales, rhonchi, wheezes Cardiovascular exam: PRESENT: RRR. ABSENT: diastolic murmur, rubs, systolic murmur Pulses: PRESENT: normal dorsalis pedis pul Vascular exam: PRESENT: normal capillary refill Rectal exam: PRESENT: deferred Extremities exam: PRESENT: full ROM. ABSENT: calf tenderness, clubbing, pedal edema Neurological exam: PRESENT: alert, awake, oriented to person, oriented to place , oriented to time, oriented to situation. ABSENT: motor sensory deficit Psychiatric exam: PRESENT: appropriate affect, normal mood. ABSENT: homicidal ideation, suicidal ideation Skin exam: PRESENT: dry, intact, warm. ABSENT: cyanosis, rash Results Laboratory Results: 04/27/17 04:59 04/27/17 04:59 04/27/17 12:00 Catheterized Urine Urine Culture - Final Enterococcus Faecalis(Group D) Impressions: Hip/Pelvis X-Ray 04/15/17 16:33 IMPRESSION: Portion of the right femoral neck is not well visualized as noted above. No obvious fractures are identified. Other findings as noted above Pelvis CT 04/15/17 18:37 IMPRESSION: On the sagittal images of the right hip there is apparent cortical offset just distal to the greater and lesser trochanters which is not identified in the other projections and may be artifactual in nature related to patient motion however clinical correlation is recommended. No other evidence for fracture is seen. Other findings as noted above. Lower Extremity MRI 04/17/17 08:00 IMPRESSION: No acute findings in the right hip. Scrotum Ultrasound 04/24/17 00:00 IMPRESSION: No acute or suspicious findings. Small to moderate bilateral hydroceles. Small left varicocele. Testicular microlithiasis. Assessment & Plan - Diagnosis (1) UTI (urinary tract infection) Qualifiers: Urinary tract infection type: site unspecified Hematuria presence: without hematuria Qualified Code(s): N39.0 - Urinary tract infection, site not specified Is this a current diagnosis for this admission?: Yes Plan: Enterococcus faecalis: Will place on Imipenem. (2) Accidental fall Qualifiers: Encounter type: initial encounter Qualified Code(s): W19.XXXA - Unspecified fall, initial encounter Is this a current diagnosis for this admission?: Yes Plan: Will have pt use PT/OT. (3) Ambulatory dysfunction Is this a current diagnosis for this admission?: Yes Plan: Will continue PT/OT (4) Chronic pain Qualifiers: Chronic pain type: chronic pain syndrome Qualified Code(s): G89.4 - Chronic pain syndrome Is this a current diagnosis for this admission?: Yes Plan: Continue current medication. (5) Depression Qualifiers: Depression Type: unspecified Qualified Code(s): F32.9 - Major depressive disorder, single episode, unspecified Is this a current diagnosis for this admission?: Yes Plan: Kavon (6) Diabetes 1.5, managed as type 2 Is this a current diagnosis for this admission?: Yes Plan: SSI (7) Morbid obesity Is this a current diagnosis for this admission?: Yes Plan: Encourage dietary changes. (8) Type 2 diabetes mellitus Qualifiers: Diabetes mellitus complication status: without complication Diabetes mellitus intermission coordinator insulin use: with [facility] use Qualified Code(s): E11.9 - Type 2 diabetes mellitus without complications; Z79.4 - senior living (current) use of insulin; Z79.4 - terminal supervisor (current) use of insulin; Z79.4 - senior living ( current) use of insulin; Z79.4 - terminal supervisor (current) use of insulin Is this a current diagnosis for this admission?: Yes Plan: SSI - Time Time Spent with patient: 25-34 minutes
[2017-04-29] MEDS ORDERED: IMIPENEM/CILASTATIN SODIUM 500 MG in NORMAL SALINE 100 ML IV SCH (18:00)
[2017-04-29] MEDS ORDERED: DIPHENHYDRAMINE HCL 50 MG/ML VIAL IV ONE (19:43)
[2017-04-29] MEDS ORDERED: VANCOMYCIN HCL 0 MG in DEXTROSE 5%-WATER 250 ML IV NR (20:45)
[2017-04-29] MEDS: QUETIAPINE FUMARATE 25 MG TABLET PO SCH (21:15)
[2017-04-29] MEDS ORDERED: AZTREONAM INJ 1 GM VIAL IV SCH (22:00)
[2017-04-29] MEDS ORDERED: VANCOMYCIN HCL 2,000 MG in DEXTROSE 5%-WATER 500 ML IV SCH ×2 (22:00→23:00)
[2017-04-29] MEDS ORDERED: DIPHENHYDRAMINE HCL 50 MG/ML VIAL IV PRN (22:37)
[2017-04-29] MEDS ORDERED: VANCOMYCIN HCL INJ 1000 MG VIAL IV PRN (22:58)
[2017-04-29] MEDS: AZTREONAM 2 GM in DEXTROSE 5%-WATER 100 ML IV SCH (23:29)
[2017-04-30] MEDS: HYDROMORPHONE HCL 2 MG TABLET PO PRN ×6 (01:50→23:56)
[2017-04-30] MEDS ORDERED: VANCOMYCIN HCL 2,000 MG in DEXTROSE 5%-WATER 500 ML IV SCH ×6 (02:00→18:00)
[2017-04-30] MEDS: AZTREONAM 2 GM in DEXTROSE 5%-WATER 100 ML IV SCH ×3 (06:14→23:56)
[2017-04-30] MEDS: GABAPENTIN 300 MG CAPSULE PO SCH ×3 (06:14→21:44)
[2017-04-30] MEDS: BACLOFEN 20 MG TABLET PO SCH ×3 (06:14→21:44)
[2017-04-30 06:27] LABS: ABSOLUTE BASOPHILS # (AUTO) 0.1 10^3/uL (0.0-0.2); ABSOLUTE EOSINOPHILS # (AUTO) 0.3 10^3/uL (0.0-0.6); ABSOLUTE LYMPHOCYTES (AUTO) 2.7 10^3/uL (0.5-4.7); ABSOLUTE MONOCYTES (AUTO) 0.7 10^3/uL (0.1-1.4); ABSOLUTE NEUT (AUTO) 7.8 10^3/uL (1.7-8.2); EOSINOPHILS % (AUTO) 2.5 % (0-6); HEMATOCRIT 35.3 % (37.9-51.0); HEMOGLOBIN 11.9 g/dL (13.5-17.0); HGB HCT DIFFERENCE 0.4; LYMPHOCYTES % (AUTO) 23.2 % (13-45); MEAN CORPUSCULAR HEMOGLOBIN 27.4 pg (27.0-33.4); MEAN CORPUSCULAR HGB CONC 33.7 g/dL (32.0-36.0); MEAN CORPUSCULAR VOLUME 81 fl (80-97); MONOCYTES % (AUTO) 6.1 % (3-13); RED BLOOD COUNT 4.33 10^6/uL (4.35-5.55); RED CELL DISTRIBUTION WIDTH 15.8 % (11.5-14.0); SEGMENTED NEUTROPHILS % (AUTO) 67.2 % (42-78); WHITE BLOOD COUNT 11.6 10^3/uL (4.0-10.5)
[2017-04-30 06:53] LABS: ANION GAP 8 (5-19); BLOOD UREA NITROGEN 14 mg/dL (7-20); CALCIUM 9.2 mg/dL (8.4-10.2); CARBON DIOXIDE 26 mmol/L (22-30); CHLORIDE 104 mmol/L (98-107); CREATININE RESULT 0.69 mg/dL (0.52-1.25); GLUCOSE 272 mg/dL (75-110); POTASSIUM 4.3 mmol/L (3.6-5.0)
[2017-04-30] MEDS: INSULIN LISPRO 100 UNIT/ML 3 ML VIAL SUBCUT PRN ×4 (08:06→21:44)
[2017-04-30] MEDS: INSULIN LISPRO 100 UNIT/ML 3 ML VIAL SUBCUT SCH ×3 (08:06→16:35)
[2017-04-30] MEDS: DIPHENHYDRAMINE HCL 50 MG/ML VIAL IV PRN ×2 (08:29→11:16)
[2017-04-30] MEDS ORDERED: VANCOMYCIN HCL 2,000 MG in DEXTROSE 5%-WATER 500 ML IV ONE (09:00)
[2017-04-30] MEDS: DULOXETINE HCL 30 MG CAPSULE.DR PO SCH (09:57)
[2017-04-30] MEDS: SENNOSIDES/DOCUSATE 8.6-50 MG 1 EACH TABLET PO SCH (09:58)
[2017-04-30] MEDS: INSULIN GLARGINE,HUM.REC.ANLOG 300 UNIT/3 ML INSULN.PEN SUBCUT SCH ×2 (09:58→21:44)
[2017-04-30] MEDS: ENOXAPARIN SODIUM INJ 40 MG/0.4 ML DISP.SYRIN SUBCUT SCH (09:58)
[2017-04-30] MEDS ORDERED: DIPHENHYDRAMINE HCL 50 MG/ML VIAL IV ONE (12:15)
[2017-04-30] MEDS ORDERED: DIPHENHYDRAMINE HCL 50 MG/ML VIAL IV PRN (14:25)
--- NOTE | 2017-04-30 14:39 | PDOC PROGRESS REPORT ---
Subjective Progress Note for:: 04/30/17 Subjective:: Pt states that he is having problems tolerating Vancomycin. Physical Exam Vital Signs: Temp Pulse Resp BP Pulse Ox 98.0 F 67 16 146/70 H 100 04/30/17 11:31 04/30/17 11:31 04/30/17 11:31 04/30/17 11:31 04/30/17 11:31 Intake & Output 04/29/17 04/30/17 05/01/17 06:59 06:59 06:59 Intake Total 2076 2134 Output Total 2024 2249 Balance 52 -115 Weight 180.3 kg 183.6 kg General appearance: PRESENT: no acute distress, other - obese, laying in bed. Head exam: PRESENT: atraumatic, normocephalic Eye exam: PRESENT: conjunctiva pink, EOMI. ABSENT: scleral icterus Ear exam: PRESENT: normal external ear exam Mouth exam: PRESENT: moist, tongue midline Neck exam: ABSENT: carotid bruit, JVD, lymphadenopathy, thyromegaly Respiratory exam: PRESENT: clear to auscultation kathryn. ABSENT: rales, rhonchi, wheezes Cardiovascular exam: PRESENT: RRR. ABSENT: diastolic murmur, rubs, systolic murmur Pulses: PRESENT: normal dorsalis pedis pul Vascular exam: PRESENT: normal capillary refill GI/Abdominal exam: PRESENT: normal bowel sounds, soft. ABSENT: distended, guarding, mass, organolmegaly, rebound, tenderness Rectal exam: PRESENT: deferred Extremities exam: PRESENT: full ROM. ABSENT: calf tenderness, clubbing, pedal edema Neurological exam: PRESENT: alert, awake, oriented to person, oriented to place , oriented to time, oriented to situation, CN II-XII grossly intact, other - able to move lower ext bilaterally. Psychiatric exam: PRESENT: appropriate affect, normal mood. ABSENT: homicidal ideation, suicidal ideation Skin exam: PRESENT: dry, intact, warm. ABSENT: cyanosis, rash Results Laboratory Results: 04/30/17 05:47 04/30/17 05:47 04/30/17 04/30/17 05:47 05:47 WBC 11.6 H RBC 4.33 L Hgb 11.9 L Hct 35.3 L MCV 81 MCH 27.4 MCHC 33.7 RDW 15.8 H Plt Count 221 Seg Neutrophils % 67.2 Lymphocytes % 23.2 Monocytes % 6.1 Eosinophils % 2.5 Basophils % 1.0 Absolute Neutrophils 7.8 Absolute Lymphocytes 2.7 Absolute Monocytes 0.7 Absolute Eosinophils 0.3 Absolute Basophils 0.1 Sodium 138.0 Potassium 4.3 Chloride 104 Carbon Dioxide 26 Anion Gap 8 BUN 14 Creatinine 0.69 Est GFR ( Amer) > 60 Est GFR (Non-Af Amer) > 60 Glucose 272 H Calcium 9.2 Magnesium 2.0 04/27/17 12:00 Catheterized Urine Urine Culture - Final Enterococcus Faecalis(Group D) Impressions: Hip/Pelvis X-Ray 04/15/17 16:33 IMPRESSION: Portion of the right femoral neck is not well visualized as noted above. No obvious fractures are identified. Other findings as noted above Pelvis CT 04/15/17 18:37 IMPRESSION: On the sagittal images of the right hip there is apparent cortical offset just distal to the greater and lesser trochanters which is not identified in the other projections and may be artifactual in nature related to patient motion however clinical correlation is recommended. No other evidence for fracture is seen. Other findings as noted above. Lower Extremity MRI 04/17/17 08:00 IMPRESSION: No acute findings in the right hip. Scrotum Ultrasound 04/24/17 00:00 IMPRESSION: No acute or suspicious findings. Small to moderate bilateral hydroceles. Small left varicocele. Testicular microlithiasis. Assessment & Plan - Diagnosis (1) UTI (urinary tract infection) Qualifiers: Urinary tract infection type: site unspecified Hematuria presence: without hematuria Qualified Code(s): N39.0 - Urinary tract infection, site not specified Is this a current diagnosis for this admission?: Yes Plan: Will continue current antibiotics and continue benadryl. (2) Accidental fall Qualifiers: Encounter type: initial encounter Qualified Code(s): W19.XXXA - Unspecified fall, initial encounter Is this a current diagnosis for this admission?: Yes Plan: Will have pt use PT/OT. (3) Ambulatory dysfunction Is this a current diagnosis for this admission?: Yes Plan: Will continue PT/OT (4) Chronic pain Qualifiers: Chronic pain type: chronic pain syndrome Qualified Code(s): G89.4 - Chronic pain syndrome Is this a current diagnosis for this admission?: Yes Plan: Continue current medication. (5) Depression Qualifiers: Depression Type: unspecified Qualified Code(s): F32.9 - Major depressive disorder, single episode, unspecified Is this a current diagnosis for this admission?: Yes Plan: Kavon (6) Diabetes 1.5, managed as type 2 Is this a current diagnosis for this admission?: Yes Plan: SSI (7) Morbid obesity Is this a current diagnosis for this admission?: Yes Plan: Encourage dietary changes. (8) Type 2 diabetes mellitus Qualifiers: Diabetes mellitus complication status: without complication Diabetes mellitus senior living insulin use: with senior living use Qualified Code(s): E11.9 - Type 2 diabetes mellitus without complications; Z79.4 - terminal clerk (current) use of insulin; Z79.4 - [facility] (current) use of insulin; Z79.4 - [facility] ( current) use of insulin; Z79.4 - terminal clerk (current) use of insulin Is this a current diagnosis for this admission?: Yes Plan: SSI - Time Time Spent with patient: 25-34 minutes
[2017-04-30] MEDS: FAMOTIDINE 20 MG TABLET PO SCH (16:35)
[2017-04-30] MEDS: VANCOMYCIN HCL 2,000 MG in DEXTROSE 5%-WATER 500 ML IV SCH (18:23)
[2017-04-30 21:30] LABS: CREATININE RESULT 0.68 mg/dL (0.52-1.25)
[2017-04-30] MEDS: QUETIAPINE FUMARATE 25 MG TABLET PO SCH (21:44)
[2017-05-01] MEDS: VANCOMYCIN HCL 2,000 MG in DEXTROSE 5%-WATER 500 ML IV SCH ×3 (03:03→17:17)
[2017-05-01] MEDS: DIPHENHYDRAMINE HCL 50 MG/ML VIAL IV PRN ×4 (03:04→21:48)
[2017-05-01] MEDS: HYDROMORPHONE HCL 2 MG TABLET PO PRN ×5 (04:01→21:48)
[2017-05-01] MEDS: BACLOFEN 20 MG TABLET PO SCH ×3 (05:26→22:51)
[2017-05-01] MEDS: GABAPENTIN 300 MG CAPSULE PO SCH ×3 (05:26→22:51)
[2017-05-01 05:28] LABS: ABSOLUTE EOSINOPHILS # (AUTO) 0.2 10^3/uL (0.0-0.6); ABSOLUTE LYMPHOCYTES (AUTO) 1.8 10^3/uL (0.5-4.7); ABSOLUTE MONOCYTES (AUTO) 0.8 10^3/uL (0.1-1.4); ABSOLUTE NEUT (AUTO) 11.6 10^3/uL (1.7-8.2); BASOPHILS % (AUTO) 0.3 % (0-2); EOSINOPHILS % (AUTO) 1.7 % (0-6); HEMATOCRIT 36.2 % (37.9-51.0); HEMOGLOBIN 12.1 g/dL (13.5-17.0); HGB HCT DIFFERENCE 0.1; LYMPHOCYTES % (AUTO) 12.3 % (13-45); MEAN CORPUSCULAR HEMOGLOBIN 27.6 pg (27.0-33.4); MEAN CORPUSCULAR HGB CONC 33.4 g/dL (32.0-36.0); MEAN CORPUSCULAR VOLUME 82 fl (80-97); MONOCYTES % (AUTO) 5.5 % (3-13); RED BLOOD COUNT 4.39 10^6/uL (4.35-5.55); RED CELL DISTRIBUTION WIDTH 16.3 % (11.5-14.0); SEGMENTED NEUTROPHILS % (AUTO) 80.2 % (42-78); WHITE BLOOD COUNT 14.5 10^3/uL (4.0-10.5)
[2017-05-01 05:55] LABS: ALANINE AMINOTRANSFERASE 37 U/L (21-72); ALBUMIN 3.9 g/dL (3.5-5.0); ALKALINE PHOSPHATASE 157 U/L (38-126); ANION GAP 8 (5-19); ASPARTATE AMINO TRANSFERASE 63 U/L (17-59); BILIRUBIN,DIRECT 0.4 mg/dL (0.0-0.4); BILIRUBIN,TOTAL 0.5 mg/dL (0.2-1.3); BLOOD UREA NITROGEN 15 mg/dL (7-20); CALCIUM 9.3 mg/dL (8.4-10.2); CARBON DIOXIDE 27 mmol/L (22-30); CHLORIDE 100 mmol/L (98-107); CREATININE RESULT 0.72 mg/dL (0.52-1.25); MAGNESIUM 1.9 mg/dL (1.6-2.3); POTASSIUM 4.2 mmol/L (3.6-5.0); SODIUM 135.1 mmol/L (137-145); TOTAL PROTEIN 7.9 g/dL (6.3-8.2)
[2017-05-01 06:13] LABS: GLUCOSE 422 mg/dL (75-110)
[2017-05-01] MEDS: AZTREONAM 2 GM in DEXTROSE 5%-WATER 100 ML IV SCH ×2 (07:18→16:05)
[2017-05-01] MEDS ORDERED: INSULIN LISPRO 100 UNIT/ML 3 ML VIAL SUBCUT ONE (07:45)
[2017-05-01] MEDS: INSULIN LISPRO 100 UNIT/ML 3 ML VIAL SUBCUT SCH ×3 (08:11→16:10)
[2017-05-01] MEDS: SENNOSIDES/DOCUSATE 8.6-50 MG 1 EACH TABLET PO SCH (09:51)
[2017-05-01] MEDS: DULOXETINE HCL 30 MG CAPSULE.DR PO SCH (09:52)
[2017-05-01] MEDS: ENOXAPARIN SODIUM INJ 40 MG/0.4 ML DISP.SYRIN SUBCUT SCH (09:53)
[2017-05-01] MEDS: INSULIN GLARGINE,HUM.REC.ANLOG 1,000 UNIT/10 ML UNIT SUBCUT SCH ×2 (10:29→21:48)
[2017-05-01] MEDS: INSULIN LISPRO 100 UNIT/ML 3 ML VIAL SUBCUT PRN ×3 (12:47→21:48)
[2017-05-01] MEDS ORDERED: DIPHENHYDRAMINE HCL 50 MG/ML VIAL IV ONE ×2 (14:00→18:30)
--- NOTE | 2017-05-01 18:27 | PDOC PROGRESS REPORT ---
Subjective Progress Note for:: 05/01/17 Subjective:: Nursing reports the security had to be caught on patient last night because he was downstairs in the cafeteria trying to order nondiabetic food. Patient also reports that he is able to tolerate vancomycin if he receives 50 mg of Benadryl prior to infusion. Patient states that otherwise he has been doing well. Physical Exam Vital Signs: Temp Pulse Resp BP Pulse Ox 97.9 F 78 14 141/59 H 99 05/01/17 11:45 05/01/17 11:45 05/01/17 11:45 05/01/17 11:45 05/01/17 11:45 Intake & Output 04/30/17 05/01/17 05/02/17 06:59 06:59 06:59 Intake Total 2135 1392 600 Output Total 2250 1850 Balance -115 -458 600 Weight 183.6 kg 184 kg General appearance: PRESENT: no acute distress, well-developed, well-nourished Head exam: PRESENT: atraumatic, normocephalic Eye exam: PRESENT: conjunctiva pink, EOMI. ABSENT: scleral icterus Ear exam: PRESENT: normal external ear exam Mouth exam: PRESENT: moist, tongue midline Neck exam: ABSENT: carotid bruit, JVD, lymphadenopathy, thyromegaly Respiratory exam: PRESENT: clear to auscultation kathryn. ABSENT: rales, rhonchi, wheezes Cardiovascular exam: PRESENT: RRR. ABSENT: diastolic murmur, rubs, systolic murmur Pulses: PRESENT: normal dorsalis pedis pul Vascular exam: PRESENT: normal capillary refill GI/Abdominal exam: PRESENT: normal bowel sounds, soft. ABSENT: distended, guarding, mass, organolmegaly, rebound, tenderness Rectal exam: PRESENT: deferred Extremities exam: PRESENT: full ROM. ABSENT: calf tenderness, clubbing, pedal edema Neurological exam: PRESENT: alert, awake, oriented to person, oriented to place , oriented to time, oriented to situation, CN II-XII grossly intact. ABSENT: motor sensory deficit Psychiatric exam: PRESENT: appropriate affect, normal mood. ABSENT: homicidal ideation, suicidal ideation Skin exam: PRESENT: dry, intact, warm. ABSENT: cyanosis, rash Results Laboratory Results: 05/01/17 05:02 05/01/17 05:02 04/30/17 05/01/1717 21:09 05:02 05:02 WBC 14.5 H RBC 4.39 Hgb 12.1 L Hct 36.2 L MCV 82 MCH 27.6 MCHC 33.4 RDW 16.3 H Plt Count 228 Seg Neutrophils % 80.2 H Lymphocytes % 12.3 L Monocytes % 5.5 Eosinophils % 1.7 Basophils % 0.3 Absolute Neutrophils 11.6 H Absolute Lymphocytes 1.8 Absolute Monocytes 0.8 Absolute Eosinophils 0.2 Absolute Basophils 0.0 Sodium 135.1 L Potassium 4.2 Chloride 100 Carbon Dioxide 27 Anion Gap 8 BUN 15 Creatinine 0.68 0.72 Est GFR ( Amer) > 60 > 60 Est GFR (Non-Af Amer) > 60 > 60 Glucose 422 H* Calcium 9.3 Magnesium 1.9 Total Bilirubin 0.5 AST 63 H ALT 37 Alkaline Phosphatase 157 H Total Protein 7.9 Albumin 3.9 Impressions: Hip/Pelvis X-Ray 04/15/17 16:33 IMPRESSION: Portion of the right femoral neck is not well visualized as noted above. No obvious fractures are identified. Other findings as noted above Pelvis CT 04/15/17 18:37 IMPRESSION: On the sagittal images of the right hip there is apparent cortical offset just distal to the greater and lesser trochanters which is not identified in the other projections and may be artifactual in nature related to patient motion however clinical correlation is recommended. No other evidence for fracture is seen. Other findings as noted above. Lower Extremity MRI 04/17/17 08:00 IMPRESSION: No acute findings in the right hip. Scrotum Ultrasound 04/24/17 00:00 IMPRESSION: No acute or suspicious findings. Small to moderate bilateral hydroceles. Small left varicocele. Testicular microlithiasis. Assessment & Plan - Diagnosis (1) UTI (urinary tract infection) Qualifiers: Urinary tract infection type: site unspecified Hematuria presence: without hematuria Qualified Code(s): N39.0 - Urinary tract infection, site not specified Is this a current diagnosis for this admission?: Yes Plan: Enterococcus Faecalis Group D: Will continue current antibiotics and continue benadryl. (2) Accidental fall Qualifiers: Encounter type: initial encounter Qualified Code(s): W19.XXXA - Unspecified fall, initial encounter Is this a current diagnosis for this admission?: Yes Plan: Will have pt use PT/OT. (3) Hyperglycemia Is this a current diagnosis for this admission?: Yes Plan: Will continue SSI (4) Ambulatory dysfunction Is this a current diagnosis for this admission?: Yes Plan: Will continue PT/OT (5) Chronic pain Qualifiers: Chronic pain type: chronic pain syndrome Qualified Code(s): G89.4 - Chronic pain syndrome Is this a current diagnosis for this admission?: Yes Plan: Continue current medication. (6) Depression Qualifiers: Depression Type: unspecified Qualified Code(s): F32.9 - Major depressive disorder, single episode, unspecified Is this a current diagnosis for this admission?: Yes Plan: Kavon (7) Diabetes 1.5, managed as type 2 Is this a current diagnosis for this admission?: Yes Plan: SSI (8) Morbid obesity Is this a current diagnosis for this admission?: Yes Plan: Encourage dietary changes. (9) Type 2 diabetes mellitus Qualifiers: Diabetes mellitus complication status: without complication Diabetes mellitus correction insulin use: with correction use Qualified Code(s): E11.9 - Type 2 diabetes mellitus without complications; Z79.4 - nursing home (current) use of insulin; Z79.4 - ad terminal makeup operator (current) use of insulin; Z79.4 - ad terminal makeup operator ( current) use of insulin; Z79.4 - ad terminal makeup operator (current) use of insulin Is this a current diagnosis for this admission?: Yes Plan: SSI - Time Time Spent with patient: 15-24 minutes
[2017-05-01] MEDS: QUETIAPINE FUMARATE 25 MG TABLET PO SCH (22:51)
[2017-05-02] MEDS: HYDROMORPHONE HCL 2 MG TABLET PO PRN ×6 (01:45→23:04)
[2017-05-02] MEDS: AZTREONAM 2 GM in DEXTROSE 5%-WATER 100 ML IV SCH ×3 (01:50→21:32)
[2017-05-02] MEDS: DIPHENHYDRAMINE HCL 50 MG/ML VIAL IV PRN ×7 (04:12→22:19)
[2017-05-02] MEDS: GABAPENTIN 300 MG CAPSULE PO SCH ×3 (06:03→21:59)
[2017-05-02] MEDS: BACLOFEN 20 MG TABLET PO SCH ×3 (06:04→21:59)
[2017-05-02] MEDS: INSULIN LISPRO 100 UNIT/ML 3 ML VIAL SUBCUT PRN ×3 (07:55→21:59)
[2017-05-02] MEDS: INSULIN LISPRO 100 UNIT/ML 3 ML VIAL SUBCUT SCH ×3 (07:55→17:38)
[2017-05-02] MEDS ORDERED: VANCOMYCIN HCL 2,000 MG in DEXTROSE 5%-WATER 500 ML IV ONE (08:00)
[2017-05-02] MEDS ORDERED: VANCOMYCIN HCL 2,000 MG in DEXTROSE 5%-WATER 500 ML IV SCH (08:00)
[2017-05-02] MEDS: DULOXETINE HCL 30 MG CAPSULE.DR PO SCH (09:11)
[2017-05-02] MEDS: INSULIN GLARGINE,HUM.REC.ANLOG 1,000 UNIT/10 ML UNIT SUBCUT SCH ×2 (09:13→21:59)
[2017-05-02] MEDS: ENOXAPARIN SODIUM INJ 40 MG/0.4 ML DISP.SYRIN SUBCUT SCH (09:18)
[2017-05-02] MEDS: SENNOSIDES/DOCUSATE 8.6-50 MG 1 EACH TABLET PO SCH (09:19)
[2017-05-02] MEDS ORDERED: FUROSEMIDE INJ/PF 100 MG/10 ML SDV IV ONE (10:30)
--- NOTE | 2017-05-02 11:41 | PDOC PROGRESS REPORT ---
Subjective Progress Note for:: 05/02/17 Subjective:: Patient states that he is doing well with Benadryl prior to vancomycin. Patient states that he has noticed that he has lower extremity leg swelling. Patient reports that he does take Lasix as needed at home. Physical Exam Vital Signs: Temp Pulse Resp BP Pulse Ox 97.9 F 70 16 141/60 H 100 05/02/17 07:38 05/02/17 07:38 05/02/17 07:38 05/02/17 07:38 05/02/17 07:38 Intake & Output 05/01/17 05/02/17 05/03/17 06:59 06:59 06:59 Intake Total 1392 2200 Output Total 1850 3200 Balance -458 -1000 Weight 184 kg 184.7 kg General appearance: PRESENT: no acute distress, well-developed, well-nourished Head exam: PRESENT: atraumatic, normocephalic Eye exam: PRESENT: conjunctiva pink, EOMI. ABSENT: scleral icterus Ear exam: PRESENT: normal external ear exam Mouth exam: PRESENT: moist, tongue midline Neck exam: ABSENT: carotid bruit, JVD, lymphadenopathy, thyromegaly Respiratory exam: PRESENT: clear to auscultation kathryn. ABSENT: rales, rhonchi, wheezes Cardiovascular exam: PRESENT: other - Regular rate and rhythm no murmurs gallops or rubs appreciated patient with +2 pitting edema of lower extremities Pulses: PRESENT: normal dorsalis pedis pul GI/Abdominal exam: PRESENT: normal bowel sounds, soft. ABSENT: distended, guarding, mass, organolmegaly, rebound, tenderness Rectal exam: PRESENT: deferred Extremities exam: PRESENT: +2 edema, other - +2 pitting edema of lower extremities bilaterally Neurological exam: PRESENT: alert, awake, oriented to person, oriented to place , oriented to time, oriented to situation, CN II-XII grossly intact. ABSENT: motor sensory deficit Psychiatric exam: PRESENT: appropriate affect, normal mood. ABSENT: homicidal ideation, suicidal ideation Skin exam: PRESENT: dry, intact, warm. ABSENT: cyanosis, rash Results Laboratory Results: 05/01/17 05:02 05/01/17 05:02 Impressions: Hip/Pelvis X-Ray 04/15/17 16:33 IMPRESSION: Portion of the right femoral neck is not well visualized as noted above. No obvious fractures are identified. Other findings as noted above Pelvis CT 04/15/17 18:37 IMPRESSION: On the sagittal images of the right hip there is apparent cortical offset just distal to the greater and lesser trochanters which is not identified in the other projections and may be artifactual in nature related to patient motion however clinical correlation is recommended. No other evidence for fracture is seen. Other findings as noted above. Lower Extremity MRI 04/17/17 08:00 IMPRESSION: No acute findings in the right hip. Scrotum Ultrasound 04/24/17 00:00 IMPRESSION: No acute or suspicious findings. Small to moderate bilateral hydroceles. Small left varicocele. Testicular microlithiasis. Assessment & Plan - Diagnosis (1) Volume overload Qualifiers: Hypervolemia type: transfusion-associated Qualified Code(s): E87.71 - Transfusion associated circulatory overload Is this a current diagnosis for this admission?: Yes Plan: Give Lasix 60mg IV X 1. Will check labs in am. (2) UTI (urinary tract infection) Qualifiers: Urinary tract infection type: site unspecified Hematuria presence: without hematuria Qualified Code(s): N39.0 - Urinary tract infection, site not specified Is this a current diagnosis for this admission?: Yes Plan: Enterococcus Faecalis Group D: Will continue current antibiotics and continue benadryl. (3) Accidental fall Qualifiers: Encounter type: initial encounter Qualified Code(s): W19.XXXA - Unspecified fall, initial encounter Is this a current diagnosis for this admission?: Yes Plan: Will have pt use PT/OT. (4) Hyperglycemia Is this a current diagnosis for this admission?: Yes Plan: Will adjust patient's insulin regimen. Patient's blood sugars have been elevated due to patient eating nondiabetic foods from cafeteria and snack machines. (5) Ambulatory dysfunction Is this a current diagnosis for this admission?: Yes Plan: Will continue PT/OT (6) Chronic pain Qualifiers: Chronic pain type: chronic pain syndrome Qualified Code(s): G89.4 - Chronic pain syndrome Is this a current diagnosis for this admission?: Yes Plan: Continue current medication. (7) Depression Qualifiers: Depression Type: unspecified Qualified Code(s): F32.9 - Major depressive disorder, single episode, unspecified Is this a current diagnosis for this admission?: Yes Plan: Kavon (8) Morbid obesity Is this a current diagnosis for this admission?: Yes Plan: Encourage dietary changes. (9) Type 2 diabetes mellitus Qualifiers: Diabetes mellitus complication status: without complication Diabetes mellitus shelter insulin use: with shelter use Qualified Code(s): E11.9 - Type 2 diabetes mellitus without complications; Z79.4 - watermaster (current) use of insulin; Z79.4 - watermaster (current) use of insulin; Z79.4 - prison ( current) use of insulin; Z79.4 - watermaster (current) use of insulin Is this a current diagnosis for this admission?: Yes Plan: Will adjust patient's insulin for better glycemic control.
[2017-05-02] MEDS: VANCOMYCIN HCL 2,000 MG in DEXTROSE 5%-WATER 500 ML IV SCH ×2 (15:05→22:19)
[2017-05-02] MEDS: QUETIAPINE FUMARATE 25 MG TABLET PO SCH (21:59)
[2017-05-03] MEDS: AZTREONAM 2 GM in DEXTROSE 5%-WATER 100 ML IV SCH ×3 (01:51→20:37)
[2017-05-03] MEDS: HYDROMORPHONE HCL 2 MG TABLET PO PRN ×4 (03:03→22:30)
[2017-05-03] MEDS: GABAPENTIN 300 MG CAPSULE PO SCH ×3 (05:30→22:30)
[2017-05-03] MEDS: BACLOFEN 20 MG TABLET PO SCH ×3 (05:30→22:31)
[2017-05-03] MEDS: DIPHENHYDRAMINE HCL 50 MG/ML VIAL IV PRN ×6 (05:36→23:00)
[2017-05-03] MEDS: VANCOMYCIN HCL 2,000 MG in DEXTROSE 5%-WATER 500 ML IV SCH ×3 (06:16→22:59)
[2017-05-03 06:18] LABS: HEMATOCRIT 36.6 % (37.9-51.0); HEMOGLOBIN 12.2 g/dL (13.5-17.0); MEAN CORPUSCULAR HEMOGLOBIN 27.1 pg (27.0-33.4); MEAN CORPUSCULAR HGB CONC 33.4 g/dL (32.0-36.0); MEAN CORPUSCULAR VOLUME 81 fl (80-97); RED BLOOD COUNT 4.51 10^6/uL (4.35-5.55); RED CELL DISTRIBUTION WIDTH 16.2 % (11.5-14.0); WHITE BLOOD COUNT 14.2 10^3/uL (4.0-10.5)
[2017-05-03 06:25] LABS: CREATININE RESULT 0.75 mg/dL (0.52-1.25)
[2017-05-03 06:25] LABS: ANION GAP 10 (5-19); BLOOD UREA NITROGEN 13 mg/dL (7-20); CALCIUM 9.6 mg/dL (8.4-10.2); CARBON DIOXIDE 28 mmol/L (22-30); CHLORIDE 96 mmol/L (98-107); CREATININE RESULT 0.68 mg/dL (0.52-1.25); GLUCOSE 272 mg/dL (75-110); POTASSIUM 4.7 mmol/L (3.6-5.0)
[2017-05-03 06:39] LABS: BAND NEUTROPHILS % (MANUAL) 2 % (3-5); BASOPHILS % (MANUAL) 0 % (0-2); EOSINOPHILS % (MANUAL) 2 % (0-6); LYMPHOCYTES % (MANUAL) 1 % (13-45); TOTAL CELLS COUNTED 100
[2017-05-03 06:41] LABS: ANISOCYTOSIS 1+; POIKILOCYTOSIS 1+; POLYCHROMASIA SLIGHT; TOXIC GRANULATION 1+; TOXIC VACUOLATION PRESENT
[2017-05-03 06:42] LABS: STOMATOCYTES SLIGHT
[2017-05-03] MEDS ORDERED: FUROSEMIDE INJ/PF 40 MG/4 ML SDV IV ONE (11:36)
--- NOTE | 2017-05-03 11:44 | PDOC PROGRESS REPORT ---
Subjective Progress Note for:: 05/03/17 Subjective:: Patient states that last night he developed severe back pain and fever of 101. Night physician reported that patient had complained of back pain and fever. Patient states that he is concerned that he has a spinal infection again. Patient became very emotional in the room almost to the point of becoming tearful because he is afraid that he may have infection in his spinal column again. Patient states he is having some extreme tenderness in his lower thoracic spine where he was diagnosed with infection prior. Physical Exam Vital Signs: Temp Pulse Resp BP Pulse Ox 98.3 F 95 16 121/75 96 05/02/17 23:20 05/02/17 23:20 05/02/17 23:20 05/02/17 23:20 05/02/17 23:20 Intake & Output 05/02/17 05/03/17 05/04/17 06:59 06:59 06:59 Intake Total 2200 2210 Output Total 3200 7000 Balance -1000 -4790 Weight 184.7 kg 184.7 kg General appearance: PRESENT: mild distress, other - Orbitally obese, tearful, upset Head exam: PRESENT: atraumatic, normocephalic Eye exam: PRESENT: conjunctiva pink, EOMI. ABSENT: scleral icterus Ear exam: PRESENT: normal external ear exam Mouth exam: PRESENT: moist, tongue midline Neck exam: ABSENT: carotid bruit, JVD, lymphadenopathy, thyromegaly Respiratory exam: PRESENT: clear to auscultation kathryn. ABSENT: rales, rhonchi, wheezes Cardiovascular exam: PRESENT: RRR. ABSENT: diastolic murmur, rubs, systolic murmur Pulses: PRESENT: normal dorsalis pedis pul Vascular exam: PRESENT: normal capillary refill GI/Abdominal exam: PRESENT: normal bowel sounds, soft. ABSENT: distended, guarding, mass, organolmegaly, rebound, tenderness Rectal exam: PRESENT: deferred Extremities exam: PRESENT: full ROM. ABSENT: calf tenderness, clubbing, pedal edema Musculoskeletal exam: PRESENT: other - Patient has tenderness to palpation at approximately T10 through T11, no increased warmth or fluctuance noted Neurological exam: PRESENT: alert, awake, oriented to person, oriented to place , oriented to time, oriented to situation, CN II-XII grossly intact. ABSENT: motor sensory deficit Psychiatric exam: PRESENT: appropriate affect, normal mood. ABSENT: homicidal ideation, suicidal ideation Skin exam: PRESENT: dry, intact, warm. ABSENT: cyanosis, rash Results Laboratory Results: 05/03/17 05:35 05/03/17 05:38 05/03/17 05/03/17 05/03/17 05:35 05:35 05:38 WBC 14.2 H RBC 4.51 Hgb 12.2 L Hct 36.6 L MCV 81 MCH 27.1 MCHC 33.4 RDW 16.2 H Plt Count 271 Seg Neutrophils % Not Reportable Lymphocytes % Not Reportable Monocytes % Not Reportable Eosinophils % Not Reportable Basophils % Not Reportable Absolute Neutrophils Not Reportable Absolute Lymphocytes Not Reportable Absolute Monocytes Not Reportable Absolute Eosinophils Not Reportable Absolute Basophils Not Reportable Sodium 134.0 L Potassium 4.7 Chloride 96 L Carbon Dioxide 28 Anion Gap 10 BUN 13 Creatinine 0.68 0.75 Est GFR ( Amer) > 60 > 60 Est GFR (Non-Af Amer) > 60 > 60 Glucose 272 H Calcium 9.6 Impressions: Hip/Pelvis X-Ray 04/15/17 16:33 IMPRESSION: Portion of the right femoral neck is not well visualized as noted above. No obvious fractures are identified. Other findings as noted above Pelvis CT 04/15/17 18:37 IMPRESSION: On the sagittal images of the right hip there is apparent cortical offset just distal to the greater and lesser trochanters which is not identified in the other projections and may be artifactual in nature related to patient motion however clinical correlation is recommended. No other evidence for fracture is seen. Other findings as noted above. Lower Extremity MRI 04/17/17 08:00 IMPRESSION: No acute findings in the right hip. Scrotum Ultrasound 04/24/17 00:00 IMPRESSION: No acute or suspicious findings. Small to moderate bilateral hydroceles. Small left varicocele. Testicular microlithiasis. Assessment & Plan - Diagnosis (1) UTI (urinary tract infection) Qualifiers: Urinary tract infection type: site unspecified Hematuria presence: without hematuria Qualified Code(s): N39.0 - Urinary tract infection, site not specified Is this a current diagnosis for this admission?: Yes Plan: Enterococcus Faecalis Group D: Will continue current antibiotics and continue benadryl. (2) Volume overload Qualifiers: Hypervolemia type: transfusion-associated Qualified Code(s): E87.71 - Transfusion associated circulatory overload Is this a current diagnosis for this admission?: Yes Plan: Give additional Lasix today to help with diuresis (3) Back pain Qualifiers: Back pain location: thoracic back pain Is this a current diagnosis for this admission?: Yes Plan: Patient very tearful because he is concerned that he has infection in his spinal cord again patient demanding that something be done to evaluate for infection. Will obtain MRI of thoracic spine. (4) Accidental fall Qualifiers: Encounter type: initial encounter Qualified Code(s): W19.XXXA - Unspecified fall, initial encounter Is this a current diagnosis for this admission?: Yes Plan: PT/OT. (5) Hyperglycemia Is this a current diagnosis for this admission?: Yes Plan: She is insulin regimen was adjusted yesterday we will monitor today and if additional adjustments are needed will make those changes tomorrow. (6) Ambulatory dysfunction Is this a current diagnosis for this admission?: Yes Plan: PT/OT (7) Chronic pain Qualifiers: Chronic pain type: chronic pain syndrome Qualified Code(s): G89.4 - Chronic pain syndrome Is this a current diagnosis for this admission?: Yes Plan: Continue current medication. (8) Depression Qualifiers: Depression Type: unspecified Qualified Code(s): F32.9 - Major depressive disorder, single episode, unspecified Is this a current diagnosis for this admission?: Yes Plan: Kavon (9) Morbid obesity Is this a current diagnosis for this admission?: Yes Plan: Encourage dietary changes. (10) Type 2 diabetes mellitus Qualifiers: Diabetes mellitus complication status: without complication Diabetes mellitus chcf insulin use: with section beamer use Qualified Code(s): E11.9 - Type 2 diabetes mellitus without complications; Z79.4 - retirement (current) use of insulin; Z79.4 - retirement (current) use of insulin; Z79.4 - retirement ( current) use of insulin; Z79.4 - physician specialist (current) use of insulin Is this a current diagnosis for this admission?: Yes Plan: Patient's insulin regimen was adjusted yesterday we will monitor today and make adjustments tomorrow if needed. - Time Time Spent with patient: 15-24 minutes - Inpatient Certification Post Hospital Care: Other - Awaiting rehab versus group home placement
[2017-05-03] MEDS: ENOXAPARIN SODIUM INJ 40 MG/0.4 ML DISP.SYRIN SUBCUT SCH (11:45)
[2017-05-03] MEDS: INSULIN LISPRO 100 UNIT/ML 3 ML VIAL SUBCUT PRN ×3 (11:45→23:00)
[2017-05-03] MEDS: DULOXETINE HCL 30 MG CAPSULE.DR PO SCH (11:45)
[2017-05-03] MEDS: INSULIN GLARGINE,HUM.REC.ANLOG 1,000 UNIT/10 ML UNIT SUBCUT SCH ×2 (11:45→22:31)
[2017-05-03] MEDS: SENNOSIDES/DOCUSATE 8.6-50 MG 1 EACH TABLET PO SCH (12:09)
[2017-05-03] MEDS: INSULIN LISPRO 100 UNIT/ML 3 ML VIAL SUBCUT SCH ×2 (12:09→16:59)
[2017-05-03] MEDS ORDERED: LORAZEPAM INJ 2 MG/1 ML VIAL ONE (14:38)
[2017-05-03] MEDS ORDERED: FUROSEMIDE INJ/PF 100 MG/10 ML SDV ONE (14:52)
[2017-05-03] MEDS ORDERED: FUROSEMIDE INJ/PF 100 MG/10 ML SDV IV ONE (15:30)
[2017-05-03] MEDS: QUETIAPINE FUMARATE 25 MG TABLET PO SCH (22:30)
[2017-05-04] MEDS: HYDROMORPHONE HCL 2 MG TABLET PO PRN ×5 (02:47→19:57)
[2017-05-04] MEDS: AZTREONAM 2 GM in DEXTROSE 5%-WATER 100 ML IV SCH ×3 (02:48→19:58)
[2017-05-04] MEDS: BACLOFEN 20 MG TABLET PO SCH ×3 (05:21→21:30)
[2017-05-04] MEDS: DIPHENHYDRAMINE HCL 50 MG/ML VIAL IV PRN ×6 (05:21→23:23)
[2017-05-04] MEDS: GABAPENTIN 300 MG CAPSULE PO SCH ×3 (05:21→21:30)
[2017-05-04] MEDS: VANCOMYCIN HCL 2,000 MG in DEXTROSE 5%-WATER 500 ML IV SCH ×3 (06:23→23:24)
[2017-05-04 06:34] LABS: HEMATOCRIT 35.6 % (37.9-51.0); HEMOGLOBIN 11.9 g/dL (13.5-17.0); HGB HCT DIFFERENCE 0.1; MEAN CORPUSCULAR HEMOGLOBIN 27.1 pg (27.0-33.4); MEAN CORPUSCULAR HGB CONC 33.3 g/dL (32.0-36.0); MEAN CORPUSCULAR VOLUME 82 fl (80-97); RED BLOOD COUNT 4.37 10^6/uL (4.35-5.55); RED CELL DISTRIBUTION WIDTH 16.1 % (11.5-14.0); WHITE BLOOD COUNT 8.6 10^3/uL (4.0-10.5)
[2017-05-04 06:45] LABS: ANION GAP 12 (5-19); BLOOD UREA NITROGEN 11 mg/dL (7-20); CALCIUM 9.3 mg/dL (8.4-10.2); CARBON DIOXIDE 27 mmol/L (22-30); CHLORIDE 97 mmol/L (98-107); CREATININE RESULT 0.56 mg/dL (0.52-1.25); GLUCOSE 309 mg/dL (75-110); POTASSIUM 4.1 mmol/L (3.6-5.0); SODIUM 136.2 mmol/L (137-145)
[2017-05-04] MEDS: INSULIN LISPRO 100 UNIT/ML 3 ML VIAL SUBCUT PRN ×4 (06:50→22:09)
--- NOTE | 2017-05-04 08:38 | RADIOLOGY REPORT (SQ) ---
EXAM DESCRIPTION: MRI THORACIC SPINE WITHOUT COMPLETED DATE/TIME: 05/03/2017 4:23 pm REASON FOR STUDY: Back pain/fever in patient with history of epidura COMPARISON: 04/12/2017 TECHNIQUE: Sagittal and Axial imaging includes T1, T2, STIR and gradient echo sequences. LIMITATIONS: None. FINDINGS: LOCALIZER: No worrisome findings. ALIGNMENT: Normal. VERTEBRAE: Intact. BONE MARROW: Normal. No marrow replacement or active endplate changes. HARDWARE: None in the spine. CORD: Normal in size and signal intensity. SOFT TISSUES: No soft tissue masses. THORACIC DISCS T1-T12: Stable degree of multilevel degenerative disc disease most notably involving t he lower thoracic spine where there is anterior osteophyte formation and chronic endplate change. . No significant spinal stenosis or exit foraminal stenosis. LOWER CERVICAL: Incompletely imaged. No significant spinal stenosis or exit foraminal stenosis. UPPER LUMBAR: Incompletely imaged. No significant spinal stenosis or exit foraminal stenosis. OTHER: No other significant finding. IMPRESSION: STABLE NONCONTRAST MRI OF THE THORACIC SPINE WHEN COMPARED TO 04/12/2017. NO FRACTURE OR SUSPICIOUS OSSEOUS LESION. NO SIGNIFICANT SPINAL CANAL STENOSIS. NO ABNORMAL EPIDURAL COLLECTION. TECHNICAL DOCUMENTATION: JOB ID: [id number] [employer]- All Rights Reserved
[2017-05-04] MEDS: INSULIN LISPRO 100 UNIT/ML 3 ML VIAL SUBCUT SCH ×3 (08:44→16:30)
[2017-05-04] MEDS: SENNOSIDES/DOCUSATE 8.6-50 MG 1 EACH TABLET PO SCH (10:39)
[2017-05-04] MEDS: FAMOTIDINE 20 MG TABLET PO SCH (10:39)
[2017-05-04] MEDS: DULOXETINE HCL 30 MG CAPSULE.DR PO SCH (10:43)
[2017-05-04] MEDS: ENOXAPARIN SODIUM INJ 40 MG/0.4 ML DISP.SYRIN SUBCUT SCH (10:45)
[2017-05-04] MEDS: INSULIN GLARGINE,HUM.REC.ANLOG 1,000 UNIT/10 ML UNIT SUBCUT SCH ×2 (10:46→21:30)
--- NOTE | 2017-05-04 17:48 | PDOC PROGRESS REPORT ---
Subjective Progress Note for:: 05/04/17 Subjective:: Pt states that he is feeling better. Physical Exam Vital Signs: Temp Pulse Resp BP Pulse Ox 98.3 F 98 16 148/79 H 99 05/04/17 16:00 05/04/17 16:00 05/04/17 16:00 05/04/17 16:00 05/04/17 16:00 Intake & Output 05/03/17 05/04/17 05/05/17 06:59 06:59 06:59 Intake Total 2742 2502 2916 Output Total 7000 2400 1600 Balance -4258 102 1316 Weight 184.7 kg 184.7 kg General appearance: PRESENT: no acute distress, well-developed, well-nourished Head exam: PRESENT: atraumatic, normocephalic Eye exam: PRESENT: conjunctiva pink, EOMI. ABSENT: scleral icterus Ear exam: PRESENT: normal external ear exam Mouth exam: PRESENT: moist, tongue midline Neck exam: ABSENT: carotid bruit, JVD, lymphadenopathy, thyromegaly Respiratory exam: PRESENT: clear to auscultation kathryn. ABSENT: rales, rhonchi, wheezes Cardiovascular exam: PRESENT: RRR. ABSENT: diastolic murmur, rubs, systolic murmur Pulses: PRESENT: normal dorsalis pedis pul Vascular exam: PRESENT: normal capillary refill GI/Abdominal exam: PRESENT: normal bowel sounds, soft. ABSENT: distended, guarding, mass, organolmegaly, rebound, tenderness Rectal exam: PRESENT: deferred Neurological exam: PRESENT: alert, awake, oriented to person, oriented to place , oriented to time, oriented to situation, CN II-XII grossly intact. ABSENT: motor sensory deficit Psychiatric exam: PRESENT: appropriate affect, normal mood. ABSENT: homicidal ideation, suicidal ideation Skin exam: PRESENT: dry, intact, warm. ABSENT: cyanosis, rash Results Laboratory Results: 05/04/17 06:22 05/04/17 06:22 05/04/17 05/04/17 06:22 06:22 WBC 8.6 RBC 4.37 Hgb 11.9 L Hct 35.6 L MCV 82 MCH 27.1 MCHC 33.3 RDW 16.1 H Plt Count 244 Sodium 136.2 L Potassium 4.1 Chloride 97 L Carbon Dioxide 27 Anion Gap 12 BUN 11 Creatinine 0.56 Est GFR ( Amer) > 60 Est GFR (Non-Af Amer) > 60 Glucose 309 H Calcium 9.3 04/30/17 17:35 Catheterized Urine Urine Culture - Final Enterococcus Faecalis(Group D) Impressions: Hip/Pelvis X-Ray 04/15/17 16:33 IMPRESSION: Portion of the right femoral neck is not well visualized as noted above. No obvious fractures are identified. Other findings as noted above Pelvis CT 04/15/17 18:37 IMPRESSION: On the sagittal images of the right hip there is apparent cortical offset just distal to the greater and lesser trochanters which is not identified in the other projections and may be artifactual in nature related to patient motion however clinical correlation is recommended. No other evidence for fracture is seen. Other findings as noted above. Lower Extremity MRI 04/17/17 08:00 IMPRESSION: No acute findings in the right hip. Scrotum Ultrasound 04/24/17 00:00 IMPRESSION: No acute or suspicious findings. Small to moderate bilateral hydroceles. Small left varicocele. Testicular microlithiasis. Thoracic Spine MRI 05/03/17 00:00 IMPRESSION: STABLE NONCONTRAST MRI OF THE THORACIC SPINE WHEN COMPARED TO 2016. NO FRACTURE OR SUSPICIOUS OSSEOUS LESION. NO SIGNIFICANT SPINAL CANAL STENOSIS. NO ABNORMAL EPIDURAL COLLECTION. Assessment & Plan - Diagnosis (1) UTI (urinary tract infection) Qualifiers: Urinary tract infection type: site unspecified Hematuria presence: without hematuria Qualified Code(s): N39.0 - Urinary tract infection, site not specified Is this a current diagnosis for this admission?: Yes Plan: Enterococcus Faecalis Group D: Will continue current antibiotics and continue benadryl. (2) Volume overload Qualifiers: Hypervolemia type: transfusion-associated Qualified Code(s): E87.71 - Transfusion associated circulatory overload Is this a current diagnosis for this admission?: Yes Plan: Improved. Will continue to monitor. (3) Back pain Qualifiers: Back pain location: thoracic back pain Is this a current diagnosis for this admission?: Yes Plan: MRI demonstrating no evidence of active infection. (4) Accidental fall Qualifiers: Encounter type: initial encounter Qualified Code(s): W19.XXXA - Unspecified fall, initial encounter Is this a current diagnosis for this admission?: Yes Plan: PT/OT. (5) Hyperglycemia Is this a current diagnosis for this admission?: Yes Plan: She is insulin regimen was adjusted yesterday we will monitor today and if additional adjustments are needed will make those changes tomorrow. (6) Ambulatory dysfunction Is this a current diagnosis for this admission?: Yes Plan: PT/OT (7) Chronic pain Qualifiers: Chronic pain type: chronic pain syndrome Qualified Code(s): G89.4 - Chronic pain syndrome Is this a current diagnosis for this admission?: Yes Plan: Continue current medication. (8) Depression Qualifiers: Depression Type: unspecified Qualified Code(s): F32.9 - Major depressive disorder, single episode, unspecified Is this a current diagnosis for this admission?: Yes Plan: Kavon (9) Morbid obesity Is this a current diagnosis for this admission?: Yes Plan: Encourage dietary changes. (10) Type 2 diabetes mellitus Qualifiers: Diabetes mellitus complication status: without complication Diabetes mellitus intermediate project manager insulin use: with fpc use Qualified Code(s): E11.9 - Type 2 diabetes mellitus without complications; Z79.4 - intermediate project manager (current) use of insulin; Z79.4 - half-way (current) use of insulin; Z79.4 - half-way ( current) use of insulin; Z79.4 - intermediate project manager (current) use of insulin Is this a current diagnosis for this admission?: Yes Plan: Patient's insulin regimen was adjusted yesterday we will monitor today and make adjustments tomorrow if needed.
[2017-05-04] MEDS: QUETIAPINE FUMARATE 25 MG TABLET PO SCH (21:30)
[2017-05-05] MEDS: HYDROMORPHONE HCL 2 MG TABLET PO PRN ×6 (00:02→21:15)
[2017-05-05] MEDS: AZTREONAM 2 GM in DEXTROSE 5%-WATER 100 ML IV SCH ×3 (02:58→19:52)
[2017-05-05 05:19] LABS: ABSOLUTE EOSINOPHILS # (AUTO) 0.3 10^3/uL (0.0-0.6); ABSOLUTE LYMPHOCYTES (AUTO) 1.4 10^3/uL (0.5-4.7); ABSOLUTE MONOCYTES (AUTO) 0.8 10^3/uL (0.1-1.4); ABSOLUTE NEUT (AUTO) 6.9 10^3/uL (1.7-8.2); BASOPHILS % (AUTO) 0.5 % (0-2); EOSINOPHILS % (AUTO) 3.1 % (0-6); HEMATOCRIT 34.9 % (37.9-51.0); HEMOGLOBIN 11.9 g/dL (13.5-17.0); HGB HCT DIFFERENCE 0.8; MEAN CORPUSCULAR HEMOGLOBIN 27.8 pg (27.0-33.4); MEAN CORPUSCULAR HGB CONC 34.1 g/dL (32.0-36.0); MEAN CORPUSCULAR VOLUME 82 fl (80-97); MONOCYTES % (AUTO) 8.6 % (3-13); RED BLOOD COUNT 4.27 10^6/uL (4.35-5.55); RED CELL DISTRIBUTION WIDTH 15.9 % (11.5-14.0); SEGMENTED NEUTROPHILS % (AUTO) 72.8 % (42-78); WHITE BLOOD COUNT 9.5 10^3/uL (4.0-10.5)
[2017-05-05 05:34] LABS: ANION GAP 12 (5-19); BLOOD UREA NITROGEN 11 mg/dL (7-20); CALCIUM 9.2 mg/dL (8.4-10.2); CARBON DIOXIDE 27 mmol/L (22-30); CHLORIDE 96 mmol/L (98-107); POTASSIUM 4.3 mmol/L (3.6-5.0); SODIUM 134.6 mmol/L (137-145)
[2017-05-05 05:44] LABS: GLUCOSE 405 mg/dL (75-110)
[2017-05-05] MEDS: GABAPENTIN 300 MG CAPSULE PO SCH ×3 (06:56→21:09)
[2017-05-05] MEDS: INSULIN LISPRO 100 UNIT/ML 3 ML VIAL SUBCUT PRN ×4 (06:56→21:15)
[2017-05-05] MEDS: DIPHENHYDRAMINE HCL 50 MG/ML VIAL IV PRN ×6 (06:57→21:32)
[2017-05-05] MEDS: BACLOFEN 20 MG TABLET PO SCH ×3 (07:01→21:09)
[2017-05-05] MEDS: VANCOMYCIN HCL 2,000 MG in DEXTROSE 5%-WATER 500 ML IV SCH ×3 (07:23→22:06)
[2017-05-05] MEDS ORDERED: GLUCAGON,HUMAN RECOMB 1 MG INJ IM PRN (07:41)
[2017-05-05] MEDS ORDERED: DEXTROSE 40% GEL 15 GM TUBE PO PRN ×2 (07:41)
[2017-05-05] MEDS ORDERED: DEXTROSE 50%-WATER 25 GM/50 ML DISP.SYRIN IV PRN ×2 (07:41)
[2017-05-05] MEDS ORDERED: INSULIN REG, HUMAN 100 UNIT/ML 3 ML VIAL (PYX) SUBCUT ONE (07:41)
[2017-05-05] MEDS: INSULIN LISPRO 100 UNIT/ML 3 ML VIAL SUBCUT SCH ×3 (08:12→18:27)
[2017-05-05] MEDS: DULOXETINE HCL 30 MG CAPSULE.DR PO SCH (10:06)
[2017-05-05] MEDS: SENNOSIDES/DOCUSATE 8.6-50 MG 1 EACH TABLET PO SCH (10:07)
[2017-05-05] MEDS: INSULIN GLARGINE,HUM.REC.ANLOG 1,000 UNIT/10 ML UNIT SUBCUT SCH ×2 (10:08→21:15)
[2017-05-05] MEDS: ENOXAPARIN SODIUM INJ 40 MG/0.4 ML DISP.SYRIN SUBCUT SCH (10:09)
[2017-05-05] MEDS ORDERED: FUROSEMIDE INJ/PF 40 MG/4 ML SDV IV ONE (15:17)
--- NOTE | 2017-05-05 15:23 | PDOC PROGRESS REPORT ---
Subjective Progress Note for:: 05/05/17 Subjective:: She is seen earlier this morning. Patient states that he is not feeling well. Nursing staff states the patient has been drinking regular sodas and eating snacks in the room that has been because his blood sugar to be high in the morning. When patient was asked about his diet he first denied it and then admitted to what he was eating. Explained to patient that we would adjust his insulin to help give better coverage. Physical Exam Vital Signs: Temp Pulse Resp BP Pulse Ox 99.0 F 96 18 136/62 H 98 05/05/17 08:06 05/05/17 08:06 05/05/17 08:06 05/05/17 08:06 05/05/17 08:06 Intake & Output 05/04/17 05/05/17 05/06/17 06:59 06:59 06:59 Intake Total 2502 6218 Output Total 2400 2500 Balance 102 3718 Weight 184.7 kg General appearance: PRESENT: no acute distress, well-developed, well-nourished Head exam: PRESENT: atraumatic, normocephalic Eye exam: PRESENT: conjunctiva pink, EOMI. ABSENT: scleral icterus Ear exam: PRESENT: normal external ear exam Mouth exam: PRESENT: moist, tongue midline Neck exam: ABSENT: carotid bruit, JVD, lymphadenopathy, thyromegaly Respiratory exam: PRESENT: clear to auscultation kathryn. ABSENT: rales, rhonchi, wheezes Cardiovascular exam: PRESENT: RRR. ABSENT: diastolic murmur, rubs, systolic murmur Pulses: PRESENT: normal dorsalis pedis pul Vascular exam: PRESENT: normal capillary refill GI/Abdominal exam: PRESENT: normal bowel sounds, soft. ABSENT: distended, guarding, mass, organolmegaly, rebound, tenderness Rectal exam: PRESENT: deferred Extremities exam: PRESENT: full ROM. ABSENT: calf tenderness, clubbing, pedal edema Neurological exam: PRESENT: alert, awake, oriented to person, oriented to place , oriented to time, oriented to situation, CN II-XII grossly intact. ABSENT: motor sensory deficit Psychiatric exam: PRESENT: appropriate affect, normal mood. ABSENT: homicidal ideation, suicidal ideation Skin exam: PRESENT: dry, intact, warm. ABSENT: cyanosis, rash Results Laboratory Results: 05/05/17 04:51 05/05/17 04:51 05/05/17 05/05/17 04:51 04:51 WBC 9.5 RBC 4.27 L Hgb 11.9 L Hct 34.9 L MCV 82 MCH 27.8 MCHC 34.1 RDW 15.9 H Plt Count 224 Seg Neutrophils % 72.8 Lymphocytes % 15.0 Monocytes % 8.6 Eosinophils % 3.1 Basophils % 0.5 Absolute Neutrophils 6.9 Absolute Lymphocytes 1.4 Absolute Monocytes 0.8 Absolute Eosinophils 0.3 Absolute Basophils 0.0 Sodium 134.6 L Potassium 4.3 Chloride 96 L Carbon Dioxide 27 Anion Gap 12 BUN 11 Creatinine 0.60 Est GFR ( Amer) > 60 Est GFR (Non-Af Amer) > 60 Glucose 405 H* Calcium 9.2 Impressions: Hip/Pelvis X-Ray 04/15/17 16:33 IMPRESSION: Portion of the right femoral neck is not well visualized as noted above. No obvious fractures are identified. Other findings as noted above Pelvis CT 04/15/17 18:37 IMPRESSION: On the sagittal images of the right hip there is apparent cortical offset just distal to the greater and lesser trochanters which is not identified in the other projections and may be artifactual in nature related to patient motion however clinical correlation is recommended. No other evidence for fracture is seen. Other findings as noted above. Lower Extremity MRI 04/17/17 08:00 IMPRESSION: No acute findings in the right hip. Scrotum Ultrasound 04/24/17 00:00 IMPRESSION: No acute or suspicious findings. Small to moderate bilateral hydroceles. Small left varicocele. Testicular microlithiasis. Thoracic Spine MRI 05/03/17 00:00 IMPRESSION: STABLE NONCONTRAST MRI OF THE THORACIC SPINE WHEN COMPARED TO 2016. NO FRACTURE OR SUSPICIOUS OSSEOUS LESION. NO SIGNIFICANT SPINAL CANAL STENOSIS. NO ABNORMAL EPIDURAL COLLECTION. Assessment & Plan - Diagnosis (1) UTI (urinary tract infection) Qualifiers: Urinary tract infection type: site unspecified Hematuria presence: without hematuria Qualified Code(s): N39.0 - Urinary tract infection, site not specified Is this a current diagnosis for this admission?: Yes Plan: Enterococcus Faecalis Group D: Will continue current antibiotics and continue benadryl. (2) Volume overload Qualifiers: Hypervolemia type: transfusion-associated Qualified Code(s): E87.71 - Transfusion associated circulatory overload Is this a current diagnosis for this admission?: Yes Plan: We will give 60 mg of IV Lasix 1. Will check BMP in a.m. (3) Back pain Qualifiers: Back pain location: thoracic back pain Is this a current diagnosis for this admission?: Yes Plan: MRI demonstrating no evidence of active infection. (4) Type 2 diabetes mellitus Qualifiers: Diabetes mellitus complication status: without complication Diabetes mellitus rat exterminator insulin use: with rat exterminator use Qualified Code(s): E11.9 - Type 2 diabetes mellitus without complications; Z79.4 - remote computer terminal operator (current) use of insulin; Z79.4 - detention (current) use of insulin; Z79.4 - detention ( current) use of insulin; Z79.4 - remote computer terminal operator (current) use of insulin Is this a current diagnosis for this admission?: Yes Plan: Lantus was increased to 90 units subcu twice daily and Humalog was increased to 20 units subcu before meals. Sliding scale insulin is still ordered. (5) Hyponatremia Is this a current diagnosis for this admission?: Yes Plan: Secondary to poorly controlled glucose: We will increase patient's insulin regimen to 90 units subcu twice daily of Lantus and 20 units of Humalog with meals (6) Accidental fall Qualifiers: Encounter type: initial encounter Qualified Code(s): W19.XXXA - Unspecified fall, initial encounter Is this a current diagnosis for this admission?: Yes Plan: PT/OT. (7) Hyperglycemia Is this a current diagnosis for this admission?: Yes Plan: Lantus was increased to 90 units subcu twice daily and Humalog 20 units subcu with meals. Patient still has sliding scale insulin ordered (8) Ambulatory dysfunction Is this a current diagnosis for this admission?: Yes Plan: PT/OT (9) Chronic pain Qualifiers: Chronic pain type: chronic pain syndrome Qualified Code(s): G89.4 - Chronic pain syndrome Is this a current diagnosis for this admission?: Yes Plan: Continue current medication. (10) Depression Qualifiers: Depression Type: unspecified Qualified Code(s): F32.9 - Major depressive disorder, single episode, unspecified Is this a current diagnosis for this admission?: Yes Plan: Kavon (11) Morbid obesity Is this a current diagnosis for this admission?: Yes Plan: Encourage dietary changes.
[2017-05-05] MEDS ORDERED: FUROSEMIDE INJ/PF 100 MG/10 ML SDV IV ONE (15:30)
[2017-05-05] MEDS ORDERED: MAGNESIUM CITRATE 296 ML BOTTLE PO ONE (16:00)
[2017-05-05] MEDS: QUETIAPINE FUMARATE 25 MG TABLET PO SCH (21:09)
[2017-05-06] MEDS: HYDROMORPHONE HCL 2 MG TABLET PO PRN ×5 (01:08→19:43)
[2017-05-06] MEDS: AZTREONAM 2 GM in DEXTROSE 5%-WATER 100 ML IV SCH (02:03)
[2017-05-06] MEDS: GABAPENTIN 300 MG CAPSULE PO SCH ×3 (05:06→21:26)
[2017-05-06] MEDS: BACLOFEN 20 MG TABLET PO SCH ×3 (05:07→21:25)
[2017-05-06] MEDS: DIPHENHYDRAMINE HCL 50 MG/ML VIAL IV PRN ×6 (05:07→22:33)
[2017-05-06] MEDS: VANCOMYCIN HCL 2,000 MG in DEXTROSE 5%-WATER 500 ML IV SCH ×3 (05:38→22:33)
[2017-05-06 08:14] LABS: HEMATOCRIT 36.8 % (37.9-51.0); HEMOGLOBIN 12.4 g/dL (13.5-17.0); HGB HCT DIFFERENCE 0.4; MEAN CORPUSCULAR HEMOGLOBIN 27.6 pg (27.0-33.4); MEAN CORPUSCULAR HGB CONC 33.7 g/dL (32.0-36.0); MEAN CORPUSCULAR VOLUME 82 fl (80-97); RED CELL DISTRIBUTION WIDTH 16.3 % (11.5-14.0); WHITE BLOOD COUNT 8.6 10^3/uL (4.0-10.5)
[2017-05-06 08:31] LABS: ANION GAP 11 (5-19); BLOOD UREA NITROGEN 10 mg/dL (7-20); CALCIUM 9.4 mg/dL (8.4-10.2); CARBON DIOXIDE 33 mmol/L (22-30); CHLORIDE 94 mmol/L (98-107); CREATININE RESULT 0.63 mg/dL (0.52-1.25); GLUCOSE 212 mg/dL (75-110); MAGNESIUM 1.9 mg/dL (1.6-2.3); POTASSIUM 4.1 mmol/L (3.6-5.0); SODIUM 137.7 mmol/L (137-145)
[2017-05-06] MEDS: DULOXETINE HCL 30 MG CAPSULE.DR PO SCH (11:38)
--- NOTE | 2017-05-06 11:39 | RADIOLOGY REPORT (SQ) ---
EXAM DESCRIPTION: PICC INSERTION; FLUORO/CV PLACEMENT; U/S GUIDE FOR VASCULAR ACCESS COMPLETED DATE/TIME: 05/06/2017 11:11 am; 05/06/2017 11:09 am REASON FOR STUDY: Difficult stick and requires IV antibiotics; IV ABX, IV ACCESS; IV ABX COMPARISON: None. FLUOROSCOPY TIME: 17 seconds 2 digital radiographic images and 1 ultrasound image saved to PACS. TECHNIQUE: Fluoroscopic and ultrasound guided PICC placement. LIMITATIONS: None. PROCEDURE: After written consent and assessment were obtained, the patient was brought into the fluo roscopy room and place supine on the table. Ultrasound was used on the patient's left arm for PICC a ccess. The left arm was prepped and draped in a sterile fashion along with the ultrasound probe. The entry site was anesthetized with 1% lidocaine. A 21 gauge 7 cm needle was advanced through the skin a nd into the basilic vein under live ultrasound guidance. An ultrasound image was saved to PACS confi rming access site. A .018 guide wire was then inserted through the needle and into the venous system . The needle was the removed and an 11 blade scalpel was used to make a 1cm skin incision. A 5 fr pe el-away sheath was advanced over the wire and into the venous system. A measurement was then made usi ng the existing wire and live fluoroscopic guidance. The wire was then removed and the trimmed. The P ICC was advanced through the peel-away sheath and into the venous system. The peel-away sheath was re moved and the catheter was adhered to the patients arm with a stat lock. The catheter was then aspira james and flushed and a sterile bandage was placed over the access site. A fluoroscopic spot image was saved to PACS confirming the catheter tip within the superior vena cava. IMPRESSION: SUCCESSFUL PLACEMENT OF A 5 FR DUAL LUMEN 47.5 CM PICC IN THE LEFT BASILIC VEIN. COMMENT: Patient medication list reviewed: Yes- Quality ID# [id number]:Eligible professional attests to doc umenting in the medical record they obtained, updated, or reviewed the patient's current medications. . Quality ID 145: Final reports for procedures using fluoroscopy that document radiation exposure adriane hebert, or exposure time and number of fluorographic images (if radiation exposure indices are not avail able) Quality ID #[id number]: The patient was prepped and draped using maximum sterile barrier technique including cap, mask, sterile gown, sterile gloves, a large sterile sheet, hand hygiene, and 2% Chlorhexidine fo r cutaneous antisepsis. When ultrasound is used, sterile ultrasound techniques are followed requiring sterile gel and sterile probes. TECHNICAL DOCUMENTATION: JOB ID: [id number] [employer]- All Rights Reserved
[2017-05-06] MEDS: ENOXAPARIN SODIUM INJ 40 MG/0.4 ML DISP.SYRIN SUBCUT SCH (11:40)
[2017-05-06] MEDS: INSULIN GLARGINE,HUM.REC.ANLOG 1,000 UNIT/10 ML UNIT SUBCUT SCH ×2 (11:41→21:31)
[2017-05-06] MEDS: SENNOSIDES/DOCUSATE 8.6-50 MG 1 EACH TABLET PO SCH (11:42)
[2017-05-06] MEDS: INSULIN LISPRO 100 UNIT/ML 3 ML VIAL SUBCUT SCH ×2 (11:42→12:23)
[2017-05-06] MEDS ORDERED: HYDROMORPHONE HCL INJ/PF 2 MG/ML AMPULE IV ONE (14:06)
--- NOTE | 2017-05-06 18:55 | PDOC PROGRESS REPORT ---
Subjective Progress Note for:: 05/06/17 Subjective:: Patient is being followed up for a UTI. Culture now growing proteus mirabilis for which patient is on ceftriaxone. Patient urine now growing Enterococcus faecalis. Patient was started on vancomycin and aztreonam. Patient antibiotic therapy has been narrowed down to just vancomycin. Patient is very clear tearful stating that he has to get back to [place] where his family is because he has no one here. States he just does not feel well. Physical Exam Vital Signs: Temp Pulse Resp BP Pulse Ox 99.2 F 86 20 140/64 H 96 05/06/17 17:00 05/06/17 17:00 05/06/17 17:00 05/06/17 17:00 05/06/17 17:00 Intake & Output 05/05/17 05/06/17 05/07/17 06:59 06:59 06:59 Intake Total 6218 3709 1530 Output Total 2500 5450 900 Balance 3718 -1741 630 Weight 183.6 kg General appearance: PRESENT: mild distress, morbidly obese Head exam: PRESENT: normocephalic Eye exam: PRESENT: EOMI Mouth exam: PRESENT: tongue midline, other - tongue ring Neck exam: PRESENT: full ROM. ABSENT: JVD Respiratory exam: PRESENT: decreased breath sounds, unlabored. ABSENT: wheezes Cardiovascular exam: PRESENT: RRR, +S1, +S2 GI/Abdominal exam: PRESENT: normal bowel sounds, soft, other - Lower abdominal tenderness Rectal exam: PRESENT: deferred Gentrourinary exam: PRESENT: indwelling catheter Extremities exam: PRESENT: pedal edema, tenderness Neurological exam: PRESENT: alert, awake, oriented to person, oriented to place , oriented to time - She can move all extremities Psychiatric exam: PRESENT: depressed Skin exam: PRESENT: intact - Tattooed, warm Results Laboratory Results: 05/06/17 07:59 05/06/17 07:59 05/06/17 05/06/17 07:59 07:59 WBC 8.6 RBC 4.50 Hgb 12.4 L Hct 36.8 L MCV 82 MCH 27.6 MCHC 33.7 RDW 16.3 H Plt Count 258 Sodium 137.7 Potassium 4.1 Chloride 94 L Carbon Dioxide 33 H Anion Gap 11 BUN 10 Creatinine 0.63 Est GFR ( Amer) > 60 Est GFR (Non-Af Amer) > 60 Glucose 212 H Calcium 9.4 Magnesium 1.9 Impressions: Hip/Pelvis X-Ray 04/15/17 16:33 IMPRESSION: Portion of the right femoral neck is not well visualized as noted above. No obvious fractures are identified. Other findings as noted above Pelvis CT 04/15/17 18:37 IMPRESSION: On the sagittal images of the right hip there is apparent cortical offset just distal to the greater and lesser trochanters which is not identified in the other projections and may be artifactual in nature related to patient motion however clinical correlation is recommended. No other evidence for fracture is seen. Other findings as noted above. Lower Extremity MRI 04/17/17 08:00 IMPRESSION: No acute findings in the right hip. Scrotum Ultrasound 04/24/17 00:00 IMPRESSION: No acute or suspicious findings. Small to moderate bilateral hydroceles. Small left varicocele. Testicular microlithiasis. Thoracic Spine MRI 05/03/17 00:00 IMPRESSION: STABLE NONCONTRAST MRI OF THE THORACIC SPINE WHEN COMPARED TO 2016. NO FRACTURE OR SUSPICIOUS OSSEOUS LESION. NO SIGNIFICANT SPINAL CANAL STENOSIS. NO ABNORMAL EPIDURAL COLLECTION. Guidance Fluoroscopy 05/06/17 00:00 IMPRESSION: SUCCESSFUL PLACEMENT OF A 5 FR DUAL LUMEN 47.5 CM PICC IN THE LEFT BASILIC VEIN. Interventional Vascular Procedure 05/06/17 00:00 IMPRESSION: SUCCESSFUL PLACEMENT OF A 5 FR DUAL LUMEN 47.5 CM PICC IN THE LEFT BASILIC VEIN. PICC Line Insertion 05/06/17 00:00 IMPRESSION: SUCCESSFUL PLACEMENT OF A 5 FR DUAL LUMEN 47.5 CM PICC IN THE LEFT BASILIC VEIN. Assessment & Plan - Diagnosis (1) UTI (urinary tract infection) Qualifiers: Urinary tract infection type: site unspecified Hematuria presence: without hematuria Qualified Code(s): N39.0 - Urinary tract infection, site not specified Is this a current diagnosis for this admission?: Yes Plan: Completed 7 days of treatment with ceftriaxone for proteus mirabilis. Patient at risk for recurrent UTI's due the use of an indwelling steinberg. Patient states since is spine injury he is unable to control his bladder and leaks all the time. Patient now with Enterococcus faecalis D. Patient currently on vancomycin. Aztreonam discontinued. Patient is premedicated with Benadryl prior to receiving vancomycin. (2) Accidental fall Qualifiers: Encounter type: initial encounter Qualified Code(s): W19.XXXA - Unspecified fall, initial encounter Is this a current diagnosis for this admission?: Yes Plan: She refusing to work with PT. This may be due to depression. Will consult psychology. (3) Ambulatory dysfunction Is this a current diagnosis for this admission?: Yes Plan: Patient is not participating in PT and OT. Will expressed the patient the importance of participating in therapy. (4) Chronic pain Qualifiers: Chronic pain type: chronic pain syndrome Qualified Code(s): G89.4 - Chronic pain syndrome Is this a current diagnosis for this admission?: Yes Plan: Patient with back pain with no evidence of etiology on MRI. Patient continued on current pain medication. Will avoid the use of IV pain medication. (5) Morbid obesity Is this a current diagnosis for this admission?: Yes Plan: Counseled on dietary changes and physical activity. (6) Type 2 diabetes mellitus Qualifiers: Diabetes mellitus complication status: without complication Diabetes mellitus terminal clerk insulin use: with terminal clerk use Qualified Code(s): E11.9 - Type 2 diabetes mellitus without complications; Z79.4 - [facility] (current) use of insulin; Z79.4 - [facility] (current) use of insulin; Z79.4 - [facility] ( current) use of insulin; Z79.4 - terminal clerk (current) use of insulin Is this a current diagnosis for this admission?: Yes Plan: Insulin aggressively titrated during his hospitalization. He was noted that patient has been going down to the cafeteria eating things he ought not to eat resulting in hyperglycemia. Patient blood glucoses are in the 200s. Patient may require further adjustment. Continue Lantus 90 units twice daily increase lispro to 25 units before meals along with sliding scale insulin. Would like to keep blood glucoses below 200. (7) Volume overload Qualifiers: Hypervolemia type: transfusion-associated Qualified Code(s): E87.71 - Transfusion associated circulatory overload Is this a current diagnosis for this admission?: Yes Plan: Start patient on scheduled doses of Lasix. (8) Depression Qualifiers: Depression Type: unspecified Qualified Code(s): F32.9 - Major depressive disorder, single episode, unspecified Is this a current diagnosis for this admission?: Yes Plan: On Cymbalta however will consult psychiatry as patient has been more down lately as his significant other states that he no longer wants to have a relationship with him. Patient states he does not have anybody here and will like to return back to [place]. (9) Hyponatremia Is this a current diagnosis for this admission?: Yes Plan: Most likely pseudohyponatremia due to the hyperglycemia now resolved.
[2017-05-06] MEDS ORDERED: INSULIN LISPRO 100 UNIT/ML 3 ML VIAL SUBCUT ONE (20:30)
[2017-05-06] MEDS: TOLTERODINE TARTRATE 1 MG TABLET PO SCH (21:25)
[2017-05-06] MEDS: NORMAL SALINE 10 ML SDV (SCHEDULED) IV SCH (21:31)
[2017-05-06] MEDS: QUETIAPINE FUMARATE 25 MG TABLET PO SCH (21:32)
[2017-05-07] MEDS: HYDROMORPHONE HCL 2 MG TABLET PO PRN ×6 (00:45→22:37)
[2017-05-07] MEDS: BACLOFEN 20 MG TABLET PO SCH ×3 (05:16→21:22)
[2017-05-07] MEDS: GABAPENTIN 300 MG CAPSULE PO SCH ×3 (05:16→21:22)
[2017-05-07] MEDS: DIPHENHYDRAMINE HCL 50 MG/ML VIAL IV PRN ×6 (05:16→22:37)
[2017-05-07] MEDS: VANCOMYCIN HCL 2,000 MG in DEXTROSE 5%-WATER 500 ML IV SCH ×3 (06:24→22:38)
[2017-05-07 07:49] LABS: BLOOD UREA NITROGEN 10 mg/dL (7-20); CALCIUM 9.5 mg/dL (8.4-10.2); CREATININE RESULT 0.64 mg/dL (0.52-1.25); GLUCOSE 211 mg/dL (75-110)
[2017-05-07 07:50] LABS: ANION GAP 9 (5-19); CARBON DIOXIDE 31 mmol/L (22-30); CHLORIDE 100 mmol/L (98-107); POTASSIUM 4.4 mmol/L (3.6-5.0); SODIUM 139.7 mmol/L (137-145)
[2017-05-07] MEDS ORDERED: INSULIN LISPRO 100 UNIT/ML 3 ML VIAL SUBCUT SCH ×2 (08:00→11:00)
[2017-05-07] MEDS: INSULIN LISPRO 100 UNIT/ML 3 ML VIAL SUBCUT PRN ×3 (08:40→18:32)
[2017-05-07] MEDS: SENNOSIDES/DOCUSATE 8.6-50 MG 1 EACH TABLET PO SCH (10:46)
[2017-05-07] MEDS: DULOXETINE HCL 30 MG CAPSULE.DR PO SCH (10:47)
[2017-05-07] MEDS: TOLTERODINE TARTRATE 1 MG TABLET PO SCH (10:47)
[2017-05-07] MEDS: FUROSEMIDE INJ/PF 40 MG/4 ML SDV IV SCH (10:48)
[2017-05-07] MEDS: NORMAL SALINE 10 ML SDV (SCHEDULED) IV SCH ×2 (10:49→21:29)
[2017-05-07] MEDS: ENOXAPARIN SODIUM INJ 40 MG/0.4 ML DISP.SYRIN SUBCUT SCH (10:49)
[2017-05-07] MEDS: NORMAL SALINE 10 ML SDV (AFTER EACH USE) IV PRN ×2 (10:49→17:03)
[2017-05-07] MEDS: INSULIN GLARGINE,HUM.REC.ANLOG 1,000 UNIT/10 ML UNIT SUBCUT SCH ×2 (10:54→21:21)
[2017-05-07] MEDS ORDERED: BISACODYL 5 MG TABEC PO ONE (14:55)
[2017-05-07] MEDS ORDERED: SORBITOL 70% SOLUTION 30 ML UDC PO ONE (15:30)
[2017-05-07] MEDS: INSULIN LISPRO 100 UNIT/ML 3 ML VIAL SUBCUT SCH (18:31)
--- NOTE | 2017-05-07 19:35 | PDOC PROGRESS REPORT ---
Subjective Progress Note for:: 05/07/17 Subjective:: Patient is being followed up for a UTI. Culture now growing proteus mirabilis for which patient is on ceftriaxone. Patient urine now growing Enterococcus faecalis. Patient was started on vancomycin and aztreonam. Patient antibiotic therapy has been narrowed down to just vancomycin. Patient is very clear tearful stating that he has to get back to [place] where his family is because he has no one here. Patient states he is feeling better but is still complaining of abdominal pain. Patient refused to have abdominal films done yesterday. Patient states he might just need to have a bowel movement. Patient mentioned that he did have some blood in his stool and has been coughing up some phlegm. Physical Exam Vital Signs: Temp Pulse Resp BP Pulse Ox 98.3 F 96 18 135/65 H 95 05/07/17 16:00 05/07/17 16:00 05/07/17 16:00 05/07/17 16:00 05/07/17 16:00 Intake & Output 05/06/17 05/07/17 05/08/17 06:59 06:59 06:59 Intake Total 3709 2370 600 Output Total 5450 3600 1590 Balance -1741 -1230 -990 Weight 183.6 kg 187.9 kg General appearance: PRESENT: no acute distress, morbidly obese Head exam: PRESENT: normocephalic Eye exam: PRESENT: EOMI Mouth exam: PRESENT: moist Neck exam: PRESENT: full ROM, JVD Respiratory exam: PRESENT: clear to auscultation kathryn, unlabored. ABSENT: wheezes Cardiovascular exam: PRESENT: RRR, +S1, +S2 GI/Abdominal exam: PRESENT: normal bowel sounds, soft, other - Right middle quadrant tenderness Rectal exam: PRESENT: deferred Extremities exam: PRESENT: pedal edema, tenderness Musculoskeletal exam: PRESENT: normal inspection Neurological exam: PRESENT: CN II-XII grossly intact Psychiatric exam: PRESENT: normal mood Skin exam: PRESENT: intact - Tattooed, warm Results Laboratory Results: 05/06/17 07:59 05/07/17 06:30 05/07/17 06:30 Sodium 139.7 Potassium 4.4 Chloride 100 Carbon Dioxide 31 H Anion Gap 9 BUN 10 Creatinine 0.64 Est GFR ( Amer) > 60 Est GFR (Non-Af Amer) > 60 Glucose 211 H Calcium 9.5 Magnesium 2.0 Impressions: Hip/Pelvis X-Ray 04/15/17 16:33 IMPRESSION: Portion of the right femoral neck is not well visualized as noted above. No obvious fractures are identified. Other findings as noted above Pelvis CT 04/15/17 18:37 IMPRESSION: On the sagittal images of the right hip there is apparent cortical offset just distal to the greater and lesser trochanters which is not identified in the other projections and may be artifactual in nature related to patient motion however clinical correlation is recommended. No other evidence for fracture is seen. Other findings as noted above. Lower Extremity MRI 04/17/17 08:00 IMPRESSION: No acute findings in the right hip. Scrotum Ultrasound 04/24/17 00:00 IMPRESSION: No acute or suspicious findings. Small to moderate bilateral hydroceles. Small left varicocele. Testicular microlithiasis. Thoracic Spine MRI 05/03/17 00:00 IMPRESSION: STABLE NONCONTRAST MRI OF THE THORACIC SPINE WHEN COMPARED TO 2016. NO FRACTURE OR SUSPICIOUS OSSEOUS LESION. NO SIGNIFICANT SPINAL CANAL STENOSIS. NO ABNORMAL EPIDURAL COLLECTION. Guidance Fluoroscopy 05/06/17 00:00 IMPRESSION: SUCCESSFUL PLACEMENT OF A 5 FR DUAL LUMEN 47.5 CM PICC IN THE LEFT BASILIC VEIN. Interventional Vascular Procedure 05/06/17 00:00 IMPRESSION: SUCCESSFUL PLACEMENT OF A 5 FR DUAL LUMEN 47.5 CM PICC IN THE LEFT BASILIC VEIN. PICC Line Insertion 05/06/17 00:00 IMPRESSION: SUCCESSFUL PLACEMENT OF A 5 FR DUAL LUMEN 47.5 CM PICC IN THE LEFT BASILIC VEIN. Assessment & Plan - Diagnosis (1) UTI (urinary tract infection) Qualifiers: Urinary tract infection type: site unspecified Hematuria presence: without hematuria Qualified Code(s): N39.0 - Urinary tract infection, site not specified Is this a current diagnosis for this admission?: Yes Plan: Completed 7 days of treatment with ceftriaxone for proteus mirabilis. Patient at risk for recurrent UTI's due the use of an indwelling steinberg. Patient states since is spine injury he is unable to control his bladder and leaks all the time. Patient now with Enterococcus faecalis D. Patient currently on vancomycin. Patient is premedicated with Benadryl prior to receiving vancomycin. (2) Accidental fall Qualifiers: Encounter type: initial encounter Qualified Code(s): W19.XXXA - Unspecified fall, initial encounter Is this a current diagnosis for this admission?: Yes Plan: Patient refusing to work with PT. This may be due to depression. Psychology has been consulted during this admission. (3) Ambulatory dysfunction Is this a current diagnosis for this admission?: Yes Plan: Patient is not participating in PT and OT. Patient refusing to work with physical therapy at times.. (4) Chronic pain Qualifiers: Chronic pain type: chronic pain syndrome Qualified Code(s): G89.4 - Chronic pain syndrome Is this a current diagnosis for this admission?: Yes Plan: Patient with back pain with no evidence of etiology on MRI. Patient continued on current pain medication. Will avoid the use of IV pain medication. (5) Morbid obesity Is this a current diagnosis for this admission?: Yes Plan: Counseled on dietary changes and physical activity. (6) Type 2 diabetes mellitus Qualifiers: Diabetes mellitus complication status: without complication Diabetes mellitus termite technician insulin use: with termite technician use Qualified Code(s): E11.9 - Type 2 diabetes mellitus without complications; Z79.4 - [facility] (current) use of insulin; Z79.4 - [facility] (current) use of insulin; Z79.4 - termite treater ( current) use of insulin; Z79.4 - termite treater (current) use of insulin Is this a current diagnosis for this admission?: Yes Plan: Insulin aggressively titrated during his hospitalization. He was noted that patient has been going down to the cafeteria eating things he ought not to eat resulting in hyperglycemia. Patient blood glucoses are in the 200s. Patient may require further adjustment. Continue Lantus 90 units twice daily increase lispro to 30 units before meals along with sliding scale insulin. Would like to keep blood glucoses below 200. (7) Volume overload Qualifiers: Hypervolemia type: transfusion-associated Qualified Code(s): E87.71 - Transfusion associated circulatory overload Is this a current diagnosis for this admission?: Yes Plan: Continue patient on scheduled doses of Lasix. (8) Depression Qualifiers: Depression Type: unspecified Qualified Code(s): F32.9 - Major depressive disorder, single episode, unspecified Is this a current diagnosis for this admission?: Yes Plan: On Cymbalta however will consult psychiatry as patient has been more down lately as his significant other states that he no longer wants to have a relationship with him. Patient states he does not have anybody here and will like to return back to [place]. Psychology was already consulted. Patient was tearful today. (9) Hyponatremia Is this a current diagnosis for this admission?: Yes Plan: Most likely pseudohyponatremia due to the hyperglycemia now resolved. (10) Abdominal pain Qualifiers: Abdominal location: right lower quadrant Qualified Code(s): R10.31 - Right lower quadrant pain Is this a current diagnosis for this admission?: Yes Plan: Patient states that this is not bladder spasms. Patient states that it may be due to constipation because has been having large stools. Patient does not want magnesium citrate. Will give patient sorbitol and Dulcolax. Continue patient on his MiraLAX and Colace. - Time Time Spent with patient: Less than 15 minutes Anticipated discharge: SNF Within: when bed available
[2017-05-07] MEDS: GUAIFENESIN 600 MG TABLET.SA PO SCH (21:21)
[2017-05-07] MEDS: QUETIAPINE FUMARATE 25 MG TABLET PO SCH (21:22)
[2017-05-08] MEDS: HYDROMORPHONE HCL 2 MG TABLET PO PRN ×5 (03:00→20:04)
[2017-05-08] MEDS: DIPHENHYDRAMINE HCL 50 MG/ML VIAL IV PRN ×6 (04:32→22:02)
[2017-05-08] MEDS: VANCOMYCIN HCL 2,000 MG in DEXTROSE 5%-WATER 500 ML IV SCH ×3 (05:31→22:01)
[2017-05-08] MEDS: BACLOFEN 20 MG TABLET PO SCH ×3 (05:31→21:28)
[2017-05-08] MEDS: GABAPENTIN 300 MG CAPSULE PO SCH ×3 (05:31→21:28)
[2017-05-08 06:39] LABS: CREATININE RESULT 0.61 mg/dL (0.52-1.25)
[2017-05-08] MEDS: INSULIN LISPRO 100 UNIT/ML 3 ML VIAL SUBCUT SCH ×3 (07:54→18:40)
[2017-05-08] MEDS: INSULIN LISPRO 100 UNIT/ML 3 ML VIAL SUBCUT PRN ×3 (07:54→18:41)
[2017-05-08] MEDS: ENOXAPARIN SODIUM INJ 40 MG/0.4 ML DISP.SYRIN SUBCUT SCH (09:04)
[2017-05-08] MEDS: INSULIN GLARGINE,HUM.REC.ANLOG 1,000 UNIT/10 ML UNIT SUBCUT SCH ×2 (09:05→21:29)
[2017-05-08] MEDS: GUAIFENESIN 600 MG TABLET.SA PO SCH ×2 (09:06→21:28)
[2017-05-08] MEDS: SENNOSIDES/DOCUSATE 8.6-50 MG 1 EACH TABLET PO SCH (09:06)
[2017-05-08] MEDS: NORMAL SALINE 10 ML SDV (SCHEDULED) IV SCH ×2 (09:06→21:33)
[2017-05-08] MEDS: NORMAL SALINE 10 ML SDV (AFTER EACH USE) IV PRN ×2 (09:06→18:46)
[2017-05-08] MEDS: DULOXETINE HCL 30 MG CAPSULE.DR PO SCH (09:07)
[2017-05-08] MEDS: FUROSEMIDE INJ/PF 40 MG/4 ML SDV IV SCH (09:07)
[2017-05-08] MEDS: QUETIAPINE FUMARATE 25 MG TABLET PO SCH (21:29)
[2017-05-08] MEDS ORDERED: GABAPENTIN 300 MG CAPSULE PO SCH (23:45)
[2017-05-09] MEDS: HYDROMORPHONE HCL 2 MG TABLET PO PRN ×5 (03:02→20:42)
--- NOTE | 2017-05-09 05:23 | PDOC PROGRESS REPORT ---
Subjective Progress Note for:: 05/08/17 Subjective:: Patient is being followed up for a UTI. Culture now growing proteus mirabilis for which patient is on ceftriaxone. Patient urine now growing Enterococcus faecalis. Patient was started on vancomycin and aztreonam. Patient antibiotic therapy has been narrowed down to just vancomycin. Patient complaining of discharge for the tip of her steinberg catheter. Patient later on requesting more pain medication. Still no BM but feels as if one is coming. Physical Exam Vital Signs: Temp Pulse Resp BP Pulse Ox 97.7 F 83 21 H 152/83 H 97 05/08/17 19:40 05/08/17 19:40 05/08/17 19:40 05/08/17 19:40 05/08/17 19:40 Intake & Output 05/07/17 05/08/17 05/09/17 06:59 06:59 06:59 Intake Total 2370 3700 2248 Output Total 3600 4690 1800 Balance -1230 -990 448 Weight 187.9 kg 186.5 kg General appearance: PRESENT: no acute distress, morbidly obese, well-developed Head exam: PRESENT: normocephalic Eye exam: PRESENT: conjunctiva pink, EOMI. ABSENT: scleral icterus Ear exam: PRESENT: normal external ear exam Mouth exam: PRESENT: moist Neck exam: ABSENT: carotid bruit, JVD, lymphadenopathy, thyromegaly Respiratory exam: PRESENT: clear to auscultation kathryn. ABSENT: rales, rhonchi, wheezes Cardiovascular exam: PRESENT: RRR. ABSENT: diastolic murmur, rubs, systolic murmur GI/Abdominal exam: PRESENT: normal bowel sounds, soft, tenderness - right mid quadrant tenderness. ABSENT: distended, guarding, mass, organolmegaly, rebound Rectal exam: PRESENT: deferred Gentrourinary exam: PRESENT: indwelling catheter Extremities exam: PRESENT: full ROM, tenderness. ABSENT: calf tenderness, clubbing, pedal edema Neurological exam: PRESENT: alert, awake, oriented to person, oriented to place , oriented to time, oriented to situation, CN II-XII grossly intact. ABSENT: motor sensory deficit Psychiatric exam: PRESENT: appropriate affect, normal mood. ABSENT: homicidal ideation, suicidal ideation Skin exam: PRESENT: dry, intact, warm. ABSENT: cyanosis, rash Results Laboratory Results: 05/06/17 07:59 05/08/17 04:30 05/08/17 04:30 Creatinine 0.61 Est GFR ( Amer) > 60 Est GFR (Non-Af Amer) > 60 Impressions: Hip/Pelvis X-Ray 04/15/17 16:33 IMPRESSION: Portion of the right femoral neck is not well visualized as noted above. No obvious fractures are identified. Other findings as noted above Pelvis CT 04/15/17 18:37 IMPRESSION: On the sagittal images of the right hip there is apparent cortical offset just distal to the greater and lesser trochanters which is not identified in the other projections and may be artifactual in nature related to patient motion however clinical correlation is recommended. No other evidence for fracture is seen. Other findings as noted above. Lower Extremity MRI 04/17/17 08:00 IMPRESSION: No acute findings in the right hip. Scrotum Ultrasound 04/24/17 00:00 IMPRESSION: No acute or suspicious findings. Small to moderate bilateral hydroceles. Small left varicocele. Testicular microlithiasis. Thoracic Spine MRI 05/03/17 00:00 IMPRESSION: STABLE NONCONTRAST MRI OF THE THORACIC SPINE WHEN COMPARED TO 2016. NO FRACTURE OR SUSPICIOUS OSSEOUS LESION. NO SIGNIFICANT SPINAL CANAL STENOSIS. NO ABNORMAL EPIDURAL COLLECTION. Guidance Fluoroscopy 05/06/17 00:00 IMPRESSION: SUCCESSFUL PLACEMENT OF A 5 FR DUAL LUMEN 47.5 CM PICC IN THE LEFT BASILIC VEIN. Interventional Vascular Procedure 05/06/17 00:00 IMPRESSION: SUCCESSFUL PLACEMENT OF A 5 FR DUAL LUMEN 47.5 CM PICC IN THE LEFT BASILIC VEIN. PICC Line Insertion 05/06/17 00:00 IMPRESSION: SUCCESSFUL PLACEMENT OF A 5 FR DUAL LUMEN 47.5 CM PICC IN THE LEFT BASILIC VEIN. Assessment & Plan - Diagnosis (1) UTI (urinary tract infection) Qualifiers: Urinary tract infection type: site unspecified Hematuria presence: without hematuria Qualified Code(s): N39.0 - Urinary tract infection, site not specified Is this a current diagnosis for this admission?: Yes Plan: Completed 7 days of treatment with ceftriaxone for proteus mirabilis. Patient at risk for recurrent UTI's due the use of an indwelling steinberg. Patient now with Enterococcus faecalis D. Patient currently on vancomycin. Patient is premedicated with Benadryl prior to receiving vancomycin. Patient close to finishing up course of antibiotics. (2) Accidental fall Qualifiers: Encounter type: initial encounter Qualified Code(s): W19.XXXA - Unspecified fall, initial encounter Is this a current diagnosis for this admission?: Yes Plan: Patient refusing to work with PT. (3) Ambulatory dysfunction Is this a current diagnosis for this admission?: Yes Plan: Patient is not participating in PT and OT. Patient refusing to work with physical therapy at times.. (4) Chronic pain Qualifiers: Chronic pain type: chronic pain syndrome Qualified Code(s): G89.4 - Chronic pain syndrome Is this a current diagnosis for this admission?: Yes Plan: Patient with back pain with no evidence of etiology on MRI. Patient continued on current pain medication. Will avoid the use of IV pain medication. Patient gabapentin increased to 800 TID. (5) Morbid obesity Is this a current diagnosis for this admission?: Yes Plan: Counseled on dietary changes and physical activity. (6) Type 2 diabetes mellitus Qualifiers: Diabetes mellitus complication status: without complication Diabetes mellitus nursing home insulin use: with nursing home use Qualified Code(s): E11.9 - Type 2 diabetes mellitus without complications; Z79.4 - intermediate manager (current) use of insulin; Z79.4 - intermediate manager (current) use of insulin; Z79.4 - custodial ( current) use of insulin; Z79.4 - custodial (current) use of insulin Is this a current diagnosis for this admission?: Yes Plan: Insulin aggressively titrated during his hospitalization. Patient is now on 100units bid of long acting insulin with 30 units short acting with meals along with SSI. Patient either extremely insulin resistant and/or not eating properly. (7) Volume overload Qualifiers: Hypervolemia type: transfusion-associated Qualified Code(s): E87.71 - Transfusion associated circulatory overload Is this a current diagnosis for this admission?: Yes Plan: Continue patient on scheduled doses of Lasix. Patient showing improvement in pedal edema. (8) Depression Qualifiers: Depression Type: unspecified Qualified Code(s): F32.9 - Major depressive disorder, single episode, unspecified Is this a current diagnosis for this admission?: Yes Plan: On Cymbalta however will consult psychiatry as patient has been more down lately as his significant other states that he no longer wants to have a relationship with him. Patient states he does not have anybody here and will like to return back to [place]. Psychology was already consulted. . (9) Hyponatremia Is this a current diagnosis for this admission?: Yes (10) Abdominal pain Qualifiers: Abdominal location: right lower quadrant Qualified Code(s): R10.31 - Right lower quadrant pain Is this a current diagnosis for this admission?: Yes Plan: Patient states that this is not bladder spasms. Patient states that pain is still there but not as bad. Will try to ensure that patient has regular bowel movement as this may be due to constipation. (11) Penile discharge Is this a current diagnosis for this admission?: Yes Plan: Patient complaining of ongoing discharge. He states that this is not normal as he was told that he can have some discharge. Urology was reconsulted. Further recommendations if any will be greatly appreciated. - Time Time Spent with patient: 15-24 minutes Anticipated discharge: SNF Within: when bed available
[2017-05-09] MEDS: BACLOFEN 20 MG TABLET PO SCH ×3 (05:37→21:46)
[2017-05-09] MEDS: DIPHENHYDRAMINE HCL 50 MG/ML VIAL IV PRN ×2 (05:37→06:26)
[2017-05-09] MEDS ORDERED: GABAPENTIN 300 MG CAPSULE PO SCH (06:00)
[2017-05-09] MEDS ORDERED: GABAPENTIN 400 MG CAPSULE PO SCH (06:00)
[2017-05-09] MEDS: GABAPENTIN 400 MG CAPSULE PO SCH ×3 (06:24→21:46)
[2017-05-09] MEDS: VANCOMYCIN HCL 2,000 MG in DEXTROSE 5%-WATER 500 ML IV SCH (06:25)
[2017-05-09 07:01] LABS: ANION GAP 11 (5-19); BLOOD UREA NITROGEN 12 mg/dL (7-20); CALCIUM 9.2 mg/dL (8.4-10.2); CARBON DIOXIDE 29 mmol/L (22-30); CHLORIDE 98 mmol/L (98-107); CREATININE RESULT 0.73 mg/dL (0.52-1.25); GLUCOSE 308 mg/dL (75-110); POTASSIUM 4.2 mmol/L (3.6-5.0); SODIUM 138.3 mmol/L (137-145)
[2017-05-09] MEDS: INSULIN LISPRO 100 UNIT/ML 3 ML VIAL SUBCUT PRN ×3 (08:16→17:53)
[2017-05-09] MEDS: INSULIN LISPRO 100 UNIT/ML 3 ML VIAL SUBCUT SCH ×3 (08:16→17:53)
[2017-05-09] MEDS: INSULIN GLARGINE,HUM.REC.ANLOG 1,000 UNIT/10 ML UNIT SUBCUT SCH ×2 (10:37→21:47)
[2017-05-09] MEDS: ENOXAPARIN SODIUM INJ 40 MG/0.4 ML DISP.SYRIN SUBCUT SCH (10:37)
[2017-05-09] MEDS: SENNOSIDES/DOCUSATE 8.6-50 MG 1 EACH TABLET PO SCH (10:37)
[2017-05-09] MEDS: DULOXETINE HCL 30 MG CAPSULE.DR PO SCH (10:38)
[2017-05-09] MEDS: FUROSEMIDE INJ/PF 40 MG/4 ML SDV IV SCH (10:38)
[2017-05-09] MEDS: GUAIFENESIN 600 MG TABLET.SA PO SCH ×2 (10:38→21:46)
[2017-05-09] MEDS: NORMAL SALINE 10 ML SDV (SCHEDULED) IV SCH ×2 (10:39→21:50)
[2017-05-09] MEDS: FLUCONAZOLE 100 MG TABLET PO SCH (12:24)
[2017-05-09] MEDS: QUETIAPINE FUMARATE 25 MG TABLET PO SCH (21:47)
[2017-05-10] MEDS: HYDROMORPHONE HCL 2 MG TABLET PO PRN ×5 (00:42→19:24)
[2017-05-10] MEDS: GABAPENTIN 400 MG CAPSULE PO SCH ×3 (05:40→22:23)
[2017-05-10] MEDS: BACLOFEN 20 MG TABLET PO SCH ×3 (05:40→22:23)
[2017-05-10] MEDS: INSULIN LISPRO 100 UNIT/ML 3 ML VIAL SUBCUT SCH ×3 (08:13→17:26)
[2017-05-10] MEDS: INSULIN LISPRO 100 UNIT/ML 3 ML VIAL SUBCUT PRN (08:13)
[2017-05-10] MEDS: ENOXAPARIN SODIUM INJ 40 MG/0.4 ML DISP.SYRIN SUBCUT SCH (10:59)
[2017-05-10] MEDS: FUROSEMIDE INJ/PF 40 MG/4 ML SDV IV SCH (10:59)
[2017-05-10] MEDS: DULOXETINE HCL 30 MG CAPSULE.DR PO SCH (10:59)
[2017-05-10] MEDS: NORMAL SALINE 10 ML SDV (SCHEDULED) IV SCH ×2 (11:16→22:24)
[2017-05-10] MEDS: INSULIN GLARGINE,HUM.REC.ANLOG 1,000 UNIT/10 ML UNIT SUBCUT SCH ×2 (11:26→22:22)
[2017-05-10] MEDS: GUAIFENESIN 600 MG TABLET.SA PO SCH ×2 (11:26→22:23)
[2017-05-10] MEDS: SENNOSIDES/DOCUSATE 8.6-50 MG 1 EACH TABLET PO SCH (11:26)
[2017-05-10] MEDS: FLUCONAZOLE 100 MG TABLET PO SCH (15:04)
[2017-05-10] MEDS: QUETIAPINE FUMARATE 25 MG TABLET PO SCH (22:23)
[2017-05-10] MEDS ORDERED: HYDROMORPHONE HCL 2 MG TABLET PO ONE (23:45)
--- NOTE | 2017-05-11 04:04 | PDOC PROGRESS REPORT ---
Subjective Progress Note for:: 05/09/17 Subjective:: Patient is being followed up for a UTI. Culture now growing proteus mirabilis for which patient is on ceftriaxone. Patient urine now growing Enterococcus faecalis and treated with vancomycin. Patient very tired today and does not want to speak. Physical Exam Vital Signs: Temp Pulse Resp BP Pulse Ox 98.1 F 97 19 123/60 98 05/09/17 19:58 05/09/17 19:58 05/09/17 19:58 05/09/17 19:58 05/09/17 19:58 Intake & Output 05/08/17 05/09/17 05/10/17 06:59 06:59 06:59 Intake Total 3700 4748 250 Output Total 4690 3500 Balance -990 1248 250 Weight 186.5 kg 188.9 kg General appearance: PRESENT: no acute distress, obese Head exam: PRESENT: normocephalic Eye exam: PRESENT: EOMI Mouth exam: PRESENT: tongue midline - pierced Neck exam: PRESENT: full ROM Respiratory exam: PRESENT: chest wall tenderness, decreased breath sounds Cardiovascular exam: PRESENT: RRR Gentrourinary exam: PRESENT: indwelling catheter - burried penis Extremities exam: PRESENT: pedal edema Neurological exam: PRESENT: alert, awake, oriented to person, oriented to place , oriented to time, oriented to situation Psychiatric exam: PRESENT: depressed Skin exam: PRESENT: intact, warm Results Laboratory Results: 05/06/17 07:59 05/09/17 05:30 05/09/17 05/09/17 05:30 05:30 Sodium 138.3 Potassium 4.2 Chloride 98 Carbon Dioxide 29 Anion Gap 11 BUN 12 Creatinine 0.73 Est GFR ( Amer) > 60 Est GFR (Non-Af Amer) > 60 Glucose 308 H Calcium 9.2 Magnesium 1.9 Impressions: Hip/Pelvis X-Ray 04/15/17 16:33 IMPRESSION: Portion of the right femoral neck is not well visualized as noted above. No obvious fractures are identified. Other findings as noted above Pelvis CT 04/15/17 18:37 IMPRESSION: On the sagittal images of the right hip there is apparent cortical offset just distal to the greater and lesser trochanters which is not identified in the other projections and may be artifactual in nature related to patient motion however clinical correlation is recommended. No other evidence for fracture is seen. Other findings as noted above. Lower Extremity MRI 04/17/17 08:00 IMPRESSION: No acute findings in the right hip. Scrotum Ultrasound 04/24/17 00:00 IMPRESSION: No acute or suspicious findings. Small to moderate bilateral hydroceles. Small left varicocele. Testicular microlithiasis. Thoracic Spine MRI 05/03/17 00:00 IMPRESSION: STABLE NONCONTRAST MRI OF THE THORACIC SPINE WHEN COMPARED TO 2016. NO FRACTURE OR SUSPICIOUS OSSEOUS LESION. NO SIGNIFICANT SPINAL CANAL STENOSIS. NO ABNORMAL EPIDURAL COLLECTION. Guidance Fluoroscopy 05/06/17 00:00 IMPRESSION: SUCCESSFUL PLACEMENT OF A 5 FR DUAL LUMEN 47.5 CM PICC IN THE LEFT BASILIC VEIN. Interventional Vascular Procedure 05/06/17 00:00 IMPRESSION: SUCCESSFUL PLACEMENT OF A 5 FR DUAL LUMEN 47.5 CM PICC IN THE LEFT BASILIC VEIN. PICC Line Insertion 05/06/17 00:00 IMPRESSION: SUCCESSFUL PLACEMENT OF A 5 FR DUAL LUMEN 47.5 CM PICC IN THE LEFT BASILIC VEIN. Assessment & Plan - Diagnosis (1) UTI (urinary tract infection) Qualifiers: Urinary tract infection type: site unspecified Hematuria presence: without hematuria Qualified Code(s): N39.0 - Urinary tract infection, site not specified Is this a current diagnosis for this admission?: Yes Plan: Completed 7 days of treatment with ceftriaxone for proteus mirabilis. Patient at risk for recurrent UTI's due the use of an indwelling steinberg. Patient now with Enterococcus faecalis D. Patient currently on vancomycin. Patient is premedicated with Benadryl prior to receiving vancomycin. Completed 7 days of vancomycin. (2) Accidental fall Qualifiers: Encounter type: initial encounter Qualified Code(s): W19.XXXA - Unspecified fall, initial encounter Is this a current diagnosis for this admission?: Yes Plan: Patient refusing to work with PT. (3) Ambulatory dysfunction Is this a current diagnosis for this admission?: Yes Plan: Patient is not participating in PT and OT. Patient has wheelchair and walks with braces. (4) Chronic pain Qualifiers: Chronic pain type: chronic pain syndrome Qualified Code(s): G89.4 - Chronic pain syndrome Is this a current diagnosis for this admission?: Yes Plan: Patient with back pain with no evidence of etiology on MRI. Patient continued on current pain medication. Will avoid the use of IV pain medication. (5) Morbid obesity Is this a current diagnosis for this admission?: Yes Plan: Counseled on dietary changes and physical activity. Patient continues to eat poorly. (6) Type 2 diabetes mellitus Qualifiers: Diabetes mellitus complication status: without complication Diabetes mellitus half-way insulin use: with half-way use Qualified Code(s): E11.9 - Type 2 diabetes mellitus without complications; Z79.4 - [facility] ([facility]) use of [facility]; Z79.4 - [facility] (current) use of insulin; Z79.4 - [facility] ( current) use of insulin; Z79.4 - [facility] (current) use of insulin Is this a current diagnosis for this admission?: Yes Plan: Insulin aggressively titrated during his hospitalization. Patient is now on 100units bid of long acting insulin with 30 units short acting with meals along with SSI. Patient either extremely insulin resistant and/or not eating properly. (7) Volume overload Qualifiers: Hypervolemia type: transfusion-associated Qualified Code(s): E87.71 - Transfusion associated circulatory overload Is this a current diagnosis for this admission?: Yes Plan: Continue patient on scheduled doses of Lasix. Patient showing improvement in pedal edema. (8) Depression Qualifiers: Depression Type: unspecified Qualified Code(s): F32.9 - Major depressive disorder, single episode, unspecified Is this a current diagnosis for this admission?: Yes Plan: On Cymbalta however will consult psychiatry as patient has been more down lately as his significant other states that he no longer wants to have a relationship with him. Patient states he does not have anybody here and will like to return back to [place]. Psychology was already consulted. . (9) Abdominal pain Qualifiers: Abdominal location: right lower quadrant Qualified Code(s): R10.31 - Right lower quadrant pain Is this a current diagnosis for this admission?: Yes Plan: Resolved. Possible due to constipation. (10) Penile discharge Is this a current diagnosis for this admission?: Yes Plan: Patient complaining of ongoing discharge. Patient has a burried penis and cleaning may be difficult. He states that this is not normal as he was told that he can have some discharge. Patient start on diflucan for possible yeast infection. Urology was reconsulted for further recs. Patient seen by urology earlier in this admission for same complaint. Scrotal US done at that time which showed hydrocele no abscess. - Time Time Spent with patient: Less than 15 minutes Anticipated discharge: SNF Within: when bed available
--- NOTE | 2017-05-11 04:18 | PDOC PROGRESS REPORT ---
Subjective Progress Note for:: 05/10/17 Subjective:: Patient is being followed up for a UTI. Culture now growing proteus mirabilis for which patient is on ceftriaxone. Patient urine now growing Enterococcus faecalis and treated with vancomycin. Patient very upset about being told about an incident which happend which ago. It pertains to him misusing his pain medications. Physical Exam Vital Signs: Temp Pulse Resp BP Pulse Ox 97.9 F 90 17 151/70 H 97 05/10/17 19:51 05/10/17 19:51 05/10/17 19:51 05/10/17 19:51 05/10/17 19:51 Intake & Output 05/09/17 05/10/17 05/11/17 06:59 06:59 06:59 Intake Total 4748 1450 960 Output Total 3500 1400 2800 Balance 1248 50 -1840 Weight 188.9 kg 188.9 kg General appearance: PRESENT: no acute distress, obese Head exam: PRESENT: normocephalic Eye exam: PRESENT: EOMI. ABSENT: scleral icterus Mouth exam: PRESENT: moist Neck exam: ABSENT: carotid bruit, JVD, lymphadenopathy, thyromegaly Respiratory exam: PRESENT: clear to auscultation kathryn. ABSENT: rales, rhonchi, wheezes Cardiovascular exam: PRESENT: RRR. ABSENT: diastolic murmur, rubs, systolic murmur Pulses: PRESENT: normal dorsalis pedis pul Vascular exam: PRESENT: normal capillary refill GI/Abdominal exam: PRESENT: normal bowel sounds, soft. ABSENT: distended, guarding, mass, organolmegaly, rebound, tenderness Rectal exam: PRESENT: deferred Gentrourinary exam: PRESENT: scrotal swelling, indwelling catheter Extremities exam: PRESENT: full ROM. ABSENT: calf tenderness, clubbing, pedal edema Neurological exam: PRESENT: alert, awake, oriented to person, oriented to place , oriented to time, oriented to situation. ABSENT: motor sensory deficit Psychiatric exam: PRESENT: appropriate affect, normal mood. ABSENT: homicidal ideation, suicidal ideation Skin exam: PRESENT: dry, intact, warm. ABSENT: cyanosis, rash Results Laboratory Results: 05/06/17 07:59 05/09/17 05:30 Impressions: Hip/Pelvis X-Ray 04/15/17 16:33 IMPRESSION: Portion of the right femoral neck is not well visualized as noted above. No obvious fractures are identified. Other findings as noted above Pelvis CT 04/15/17 18:37 IMPRESSION: On the sagittal images of the right hip there is apparent cortical offset just distal to the greater and lesser trochanters which is not identified in the other projections and may be artifactual in nature related to patient motion however clinical correlation is recommended. No other evidence for fracture is seen. Other findings as noted above. Lower Extremity MRI 04/17/17 08:00 IMPRESSION: No acute findings in the right hip. Scrotum Ultrasound 04/24/17 00:00 IMPRESSION: No acute or suspicious findings. Small to moderate bilateral hydroceles. Small left varicocele. Testicular microlithiasis. Thoracic Spine MRI 05/03/17 00:00 IMPRESSION: STABLE NONCONTRAST MRI OF THE THORACIC SPINE WHEN COMPARED TO 2016. NO FRACTURE OR SUSPICIOUS OSSEOUS LESION. NO SIGNIFICANT SPINAL CANAL STENOSIS. NO ABNORMAL EPIDURAL COLLECTION. Guidance Fluoroscopy 05/06/17 00:00 IMPRESSION: SUCCESSFUL PLACEMENT OF A 5 FR DUAL LUMEN 47.5 CM PICC IN THE LEFT BASILIC VEIN. Interventional Vascular Procedure 05/06/17 00:00 IMPRESSION: SUCCESSFUL PLACEMENT OF A 5 FR DUAL LUMEN 47.5 CM PICC IN THE LEFT BASILIC VEIN. PICC Line Insertion 05/06/17 00:00 IMPRESSION: SUCCESSFUL PLACEMENT OF A 5 FR DUAL LUMEN 47.5 CM PICC IN THE LEFT BASILIC VEIN. Assessment & Plan - Diagnosis (1) UTI (urinary tract infection) Qualifiers: Urinary tract infection type: site unspecified Hematuria presence: without hematuria Qualified Code(s): N39.0 - Urinary tract infection, site not specified Is this a current diagnosis for this admission?: Yes Plan: Completed 7 days of treatment with ceftriaxone for proteus mirabilis. Patient at risk for recurrent UTI's due the use of an indwelling steinberg. Patient now with Enterococcus faecalis D. Patient currently on vancomycin. Patient is premedicated with Benadryl prior to receiving vancomycin. Completed 7 days of vancomycin on 05/09. Will discontinue IV benadryl. (2) Accidental fall Qualifiers: Encounter type: initial encounter Qualified Code(s): W19.XXXA - Unspecified fall, initial encounter Is this a current diagnosis for this admission?: Yes Plan: Patient refusing to work with PT. Encourage patient to work with PT. (3) Ambulatory dysfunction Is this a current diagnosis for this admission?: Yes Plan: Patient is not participating in PT and OT. Patient has wheelchair and walks with braces. (4) Chronic pain Qualifiers: Chronic pain type: chronic pain syndrome Qualified Code(s): G89.4 - Chronic pain syndrome Is this a current diagnosis for this admission?: Yes Plan: Patient with back pain with no evidence of etiology on MRI. Patient continued on current pain medication. Will avoid the use of IV pain medication. Patient pain appears to be well controlled. (5) Morbid obesity Is this a current diagnosis for this admission?: Yes Plan: Counseled on dietary changes and physical activity. Patient continues to eat poorly. (6) Type 2 diabetes mellitus Qualifiers: Diabetes mellitus complication status: without complication Diabetes mellitus director of guidance insulin use: with long-term use Qualified Code(s): E11.9 - Type 2 diabetes mellitus without complications; Z79.4 - [facility] (current) use of insulin; Z79.4 - [facility] (current) use of insulin; Z79.4 - [facility] ( current) use of insulin; Z79.4 - [facility] (current) use of insulin Is this a current diagnosis for this admission?: Yes Plan: Insulin aggressively titrated during his hospitalization. Patient is now on 90units bid of long acting insulin with and increase of short acting insulin to 40 units short acting with meals along with SSI. Patient either extremely insulin resistant and/or not eating properly. (7) Volume overload Qualifiers: Hypervolemia type: unspecified Qualified Code(s): E87.70 - Fluid overload, unspecified Is this a current diagnosis for this admission?: Yes Plan: Switch to po diuretic. (8) Depression Qualifiers: Depression Type: unspecified Qualified Code(s): F32.9 - Major depressive disorder, single episode, unspecified Is this a current diagnosis for this admission?: Yes Plan: On Cymbalta however will consult psychiatry as patient has been more down lately as his significant other states that he no longer wants to have a relationship with him. Patient states he does not have anybody here and will like to return back to [place]. Psychology was already consulted. (9) Abdominal pain Qualifiers: Abdominal location: right lower quadrant Qualified Code(s): R10.31 - Right lower quadrant pain Is this a current diagnosis for this admission?: Yes Plan: Resolved. Possible due to constipation. Continue bowel regimen. (10) Penile discharge Is this a current diagnosis for this admission?: Yes Plan: Patient complaining of ongoing discharge. Patient has a burried penis and cleaning may be difficult. Patient start on diflucan for possible yeast infection. Patient seen by urology earlier in this admission for same complaint. Scrotal US done at that time which showed hydrocele no abscess. Will attempt to contact urologist to discuss the case. - Time Time Spent with patient: Less than 15 minutes Anticipated discharge: SNF Within: when bed available - Case management is working on placement.
[2017-05-11] MEDS: BACLOFEN 20 MG TABLET PO SCH ×3 (05:40→22:11)
[2017-05-11] MEDS: GABAPENTIN 400 MG CAPSULE PO SCH ×3 (05:41→22:11)
[2017-05-11] MEDS: ENOXAPARIN SODIUM INJ 40 MG/0.4 ML DISP.SYRIN SUBCUT SCH (09:08)
[2017-05-11] MEDS: SENNOSIDES/DOCUSATE 8.6-50 MG 1 EACH TABLET PO SCH (09:08)
[2017-05-11] MEDS: INSULIN GLARGINE,HUM.REC.ANLOG 1,000 UNIT/10 ML UNIT SUBCUT SCH ×2 (09:08→22:11)
[2017-05-11] MEDS: NORMAL SALINE 10 ML SDV (SCHEDULED) IV SCH ×2 (09:08→22:12)
[2017-05-11] MEDS: TORSEMIDE 20 MG TABLET PO SCH (09:08)
[2017-05-11] MEDS: GUAIFENESIN 600 MG TABLET.SA PO SCH ×2 (09:08→22:11)
[2017-05-11] MEDS: INSULIN LISPRO 100 UNIT/ML 3 ML VIAL SUBCUT SCH ×3 (09:08→17:58)
[2017-05-11] MEDS: DULOXETINE HCL 30 MG CAPSULE.DR PO SCH (09:08)
[2017-05-11] MEDS: INSULIN LISPRO 100 UNIT/ML 3 ML VIAL SUBCUT PRN ×3 (12:11→22:11)
[2017-05-11] MEDS: FLUCONAZOLE 100 MG TABLET PO SCH (12:11)
[2017-05-11] MEDS: TRAMADOL HCL 50 MG TABLET PO PRN ×3 (12:14→22:11)
[2017-05-11] MEDS ORDERED: NITROFURANTOIN MONOHYD/M-CRYST 100 MG CAPSULE PO ONE (18:45)
--- NOTE | 2017-05-11 18:47 | PDOC DISCHARGE SUMMARY ---
General - Admit/Disc Date/PCP Admission Date/Primary Care Provider: 04/15/17 18:48 CRISTINO DIGGS Discharge Date: 05/11/17 - Discharge Diagnosis (1) Homeless Is this a current diagnosis for this admission?: Yes (2) GAVINO (obstructive sleep apnea) Is this a current diagnosis for this admission?: Yes (3) Depression Is this a current diagnosis for this admission?: Yes (4) Diabetes 1.5, managed as type 2 Is this a current diagnosis for this admission?: Yes (5) Morbid obesity Is this a current diagnosis for this admission?: Yes (6) Type 2 diabetes mellitus Is this a current diagnosis for this admission?: Yes (7) UTI (urinary tract infection) Is this a current diagnosis for this admission?: Yes - Additional Information Resuscitation Status: Full Code Discharge Diet: Cardiac, Diabetic Discharge Activity: Activity As Tolerated Home Medications: Duloxetine HCl [Cymbalta] 60 mg PO DAILY 04/15/17 Gabapentin [Neurontin 400 mg Capsule] 400 mg PO Q8 04/15/17 Insulin Aspart [Novolog Flexpen] 10 units SQ ACP PRN 04/15/17 Insulin Glargine,Hum.rec.anlog [Lantus Solostar] 45 units SQ Q12 04/15/17 Melatonin/Pyridoxine HCl (B6) [Melatonin 10 mg Tablet] 10 mg PO QHS 04/15/17 Baclofen [Baclofen 20 mg Tablet] 20 mg PO Q8 tablet 05/11/17 History of Present Illness History of Present Illness: Please see H&P for full HPI Hospital Course Hospital Course: RAKESH RIVAS is a 36 year old male with a history of super morbid obesity, diabetes mellitus, hypertension, obstructive sleep apnea presented to the hospital with Complains of groin and abdominal pain. Patient was found to have urinary tract infection with Proteus mirabilis which was treated with Rocephin which was completed on 04/23/2017. Patient subsequently had repeat culture which showed Enterococcus faecalis group D which was treated with vancomycin which was completed on 05/09/2017. Currently, I feel that this is likely secondary to colonization as opposed to actual infection. Patient does have a chronic indwelling Clark catheter secondary to neurogenic bladder. Patient complained of hip pain and was evaluated by orthopedics which recommended outpatient therapy and felt to be secondary to contusion. Patient underwent a scrotal ultrasound which revealed bilateral hydrocele. He underwent psychosocial evaluation by psychology which did not state that he met any IVC criteria. And complained of back pain with apparently a history reportedly of epidural abscess, and this was found to be negative performed on 05/03/2017. In fact, this is remarkably negative with no fracture, suspicious osseous lesion, or stenosis, or abnormal epidural collection. Patient reported taking Dilaudid as an outpatient, but review of him on the [facility] database reveals that his last prescription for added Dilaudid was filled on 04/13/[address] sg Marion, who is a known ER physician. Prior to that patient had a prescription for 8 tablets of hydrocodone and 01/19/2017, prior to that 30 tablets of OxyContin on 08/07/2016 and Dilaudid on 08/07/2016. Prior to this, patient's last prescription for Dilaudid was in 05/07/2016. Patient was apparently waiting on placement due to his social situations. Patient's Dilaudid was stopped yesterday please see provider notes for that day. When I spoke to patient today, he requested Dilaudid. I told him I would not be prescribing this. Patient will call me if called me "f b". Patient was seen with nurse BROOKLYN Winters at bedside. I understood this to mean that he did not want a physical examination. Due to the fact that we are not treating an active infection, patient is not receiving any medication that cannot be given at home , patient is discharged. Patient reports that we cannot discharge him because he is homeless. [facility]. Physical Exam Vital Signs: Temp Pulse Resp BP Pulse Ox 98.3 F 102 H 17 133/56 H 98 05/11/17 15:54 05/11/17 15:54 05/11/17 15:54 05/11/17 15:54 05/11/17 15:54 Intake & Output 05/10/17 05/11/17 05/12/17 06:59 06:59 06:59 Intake Total 1450 1854 240 Output Total 1400 8545 1500 Balance 07 -5291 -0329 Weight 188.9 kg 183.4 kg Exam: Declined by patient Results Laboratory Results: 05/06/17 07:59 05/09/17 05:30 Impressions: Hip/Pelvis X-Ray 04/15/17 16:33 IMPRESSION: Portion of the right femoral neck is not well visualized as noted above. No obvious fractures are identified. Other findings as noted above Pelvis CT 04/15/17 18:37 IMPRESSION: On the sagittal images of the right hip there is apparent cortical offset just distal to the greater and lesser trochanters which is not identified in the other projections and may be artifactual in nature related to patient motion however clinical correlation is recommended. No other evidence for fracture is seen. Other findings as noted above. Lower Extremity MRI 04/17/17 08:00 IMPRESSION: No acute findings in the right hip. Scrotum Ultrasound 04/24/17 00:00 IMPRESSION: No acute or suspicious findings. Small to moderate bilateral hydroceles. Small left varicocele. Testicular microlithiasis. Thoracic Spine MRI 05/03/17 00:00 IMPRESSION: STABLE NONCONTRAST MRI OF THE THORACIC SPINE WHEN COMPARED TO 2016. NO FRACTURE OR SUSPICIOUS OSSEOUS LESION. NO SIGNIFICANT SPINAL CANAL STENOSIS. NO ABNORMAL EPIDURAL COLLECTION. Guidance Fluoroscopy 05/06/17 00:00 IMPRESSION: SUCCESSFUL PLACEMENT OF A 5 FR DUAL LUMEN 47.5 CM PICC IN THE LEFT BASILIC VEIN. Interventional Vascular Procedure 05/06/17 00:00 IMPRESSION: SUCCESSFUL PLACEMENT OF A 5 FR DUAL LUMEN 47.5 CM PICC IN THE LEFT BASILIC VEIN. PICC Line Insertion 05/06/17 00:00 IMPRESSION: SUCCESSFUL PLACEMENT OF A 5 FR DUAL LUMEN 47.5 CM PICC IN THE LEFT BASILIC VEIN. Qualifiers PATEINT BEING DISCHARGED WITH ANY OF THE FOLLOWING DIAGNOSIS?: No Plan Time Spent: Less than 30 Minutes
[2017-05-11] MEDS: QUETIAPINE FUMARATE 25 MG TABLET PO SCH (22:11)
[2017-05-12] MEDS: CLONIDINE HCL 0.1 MG TABLET PO SCH ×5 (00:30→23:39)
[2017-05-12] MEDS: GABAPENTIN 400 MG CAPSULE PO SCH ×3 (05:45→22:20)
[2017-05-12] MEDS: TRAMADOL HCL 50 MG TABLET PO PRN ×2 (05:45→13:49)
[2017-05-12] MEDS: BACLOFEN 20 MG TABLET PO SCH ×3 (05:45→23:39)
[2017-05-12] MEDS: DULOXETINE HCL 30 MG CAPSULE.DR PO SCH (09:38)
[2017-05-12] MEDS: GUAIFENESIN 600 MG TABLET.SA PO SCH ×2 (09:39→22:20)
[2017-05-12] MEDS: TORSEMIDE 20 MG TABLET PO SCH (09:40)
[2017-05-12] MEDS: ENOXAPARIN SODIUM INJ 40 MG/0.4 ML DISP.SYRIN SUBCUT SCH (09:41)
[2017-05-12] MEDS: INSULIN LISPRO 100 UNIT/ML 3 ML VIAL SUBCUT SCH ×3 (09:46→17:59)
[2017-05-12] MEDS: INSULIN GLARGINE,HUM.REC.ANLOG 1,000 UNIT/10 ML UNIT SUBCUT SCH ×2 (09:47→22:20)
[2017-05-12] MEDS: NORMAL SALINE 10 ML SDV (SCHEDULED) IV SCH ×2 (09:55→22:14)
[2017-05-12] MEDS: SENNOSIDES/DOCUSATE 8.6-50 MG 1 EACH TABLET PO SCH (09:55)
[2017-05-12] MEDS ORDERED: NITROFURANTOIN MONOHYD/M-CRYST 100 MG CAPSULE PO SCH (10:00)
[2017-05-12] MEDS: FLUCONAZOLE 100 MG TABLET PO SCH (13:49)
[2017-05-12] MEDS: INSULIN LISPRO 100 UNIT/ML 3 ML VIAL SUBCUT PRN ×3 (13:51→23:39)
--- NOTE | 2017-05-12 17:11 | PDOC PROGRESS REPORT ---
Subjective Progress Note for:: 05/12/17 Subjective:: This is an addendum to discharge summary dated 05/11/2017. Patient seen with nurse at bedside. Patient denies chest pain, shortness of breath, abdominal pain, nausea, vomiting , fevers, chills, diarrhea, constipation, headache, new onset weakness. According to nursing, patient eats whatever he wants and orders out using his credit card. Physical Exam Vital Signs: Temp Pulse Resp BP Pulse Ox 98.0 F 81 16 133/64 H 100 05/12/17 12:33 05/12/17 12:33 05/12/17 12:33 05/12/17 12:33 05/12/17 12:33 Intake & Output 05/11/17 05/12/17 05/13/17 06:59 06:59 06:59 Intake Total 1854 1614 Output Total 7177 5000 Balance -2621 -6691 Weight 183.4 kg 183 kg Exam: General: Super morbidly obese, awake alert and oriented x3, no acute respiratory distress HEENT: AT/NC, PERRL, EOMI, oropharynx is moist, pink, no scleral icterus, no conjunctival injection Neck: No JVD, trachea midline Chest: Clear to auscultation bilaterally, no wheezes rhonchi or rales; limited by body habitus CV: Regular rate and rhythm, normal S1 and S2, no murmur, rub, or gallop Abdomen: Soft, nontender to palpation, nondistended, active bowel sounds; no rebound, rigidity, or guarding; limited by body habitus Extremities: No cyanosis, clubbing or edema Neuro: Cranial nerves II through XII are grossly intact without focal deficits; awake alert and oriented x3 Psych: Normal mood and affect Results Laboratory Results: 05/06/17 07:59 05/09/17 05:30 Impressions: Hip/Pelvis X-Ray 04/15/17 16:33 IMPRESSION: Portion of the right femoral neck is not well visualized as noted above. No obvious fractures are identified. Other findings as noted above Pelvis CT 04/15/17 18:37 IMPRESSION: On the sagittal images of the right hip there is apparent cortical offset just distal to the greater and lesser trochanters which is not identified in the other projections and may be artifactual in nature related to patient motion however clinical correlation is recommended. No other evidence for fracture is seen. Other findings as noted above. Lower Extremity MRI 04/17/17 08:00 IMPRESSION: No acute findings in the right hip. Scrotum Ultrasound 04/24/17 00:00 IMPRESSION: No acute or suspicious findings. Small to moderate bilateral hydroceles. Small left varicocele. Testicular microlithiasis. Thoracic Spine MRI 05/03/17 00:00 IMPRESSION: STABLE NONCONTRAST MRI OF THE THORACIC SPINE WHEN COMPARED TO 2016. NO FRACTURE OR SUSPICIOUS OSSEOUS LESION. NO SIGNIFICANT SPINAL CANAL STENOSIS. NO ABNORMAL EPIDURAL COLLECTION. Guidance Fluoroscopy 05/06/17 00:00 IMPRESSION: SUCCESSFUL PLACEMENT OF A 5 FR DUAL LUMEN 47.5 CM PICC IN THE LEFT BASILIC VEIN. Interventional Vascular Procedure 05/06/17 00:00 IMPRESSION: SUCCESSFUL PLACEMENT OF A 5 FR DUAL LUMEN 47.5 CM PICC IN THE LEFT BASILIC VEIN. PICC Line Insertion 05/06/17 00:00 IMPRESSION: SUCCESSFUL PLACEMENT OF A 5 FR DUAL LUMEN 47.5 CM PICC IN THE LEFT BASILIC VEIN. Assessment & Plan - Diagnosis (1) UTI (urinary tract infection) Qualifiers: Urinary tract infection type: site unspecified Hematuria presence: without hematuria Qualified Code(s): N39.0 - Urinary tract infection, site not specified Is this a current diagnosis for this admission?: Yes Plan: Patient has completed antibiotics for his UTIs at this time. He has a chronic indwelling Clark due to neurogenic bladder. (2) GAVINO (obstructive sleep apnea) Is this a current diagnosis for this admission?: Yes (3) Homeless Is this a current diagnosis for this admission?: Yes (4) Depression Qualifiers: Depression Type: unspecified Qualified Code(s): F32.9 - Major depressive disorder, single episode, unspecified Is this a current diagnosis for this admission?: Yes (5) Diabetes 1.5, managed as type 2 Is this a current diagnosis for this admission?: Yes (6) Morbid obesity Is this a current diagnosis for this admission?: Yes (7) Type 2 diabetes mellitus Qualifiers: Diabetes mellitus complication status: without complication Diabetes mellitus group home insulin use: with group home use Qualified Code(s): E11.9 - Type 2 diabetes mellitus without complications; Z79.4 - jail (current) use of insulin; Z79.4 - jail (current) use of insulin; Z79.4 - jail ( current) use of insulin; Z79.4 - science professor (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 Patient has been started on clonidine as needed for withdrawal symptoms. Due to patient's extreme body habitus, I am disinclined to give him opiate/narcotic pain medication - Plan Summary Plan Summary: At this time we are simply providing sliding scale insulin and normal medications for this patient. Patient is not receiving any antibiotics nor additional care here at the hospital that cannot be provided at home. While sensitive the patient's unusual living situation, patient does receive a disability check and can go to a extended-stay hotel or other correction to continue to meet his own needs.
[2017-05-12] MEDS: QUETIAPINE FUMARATE 25 MG TABLET PO SCH (22:20)
[2017-05-13] MEDS: BACLOFEN 20 MG TABLET PO SCH ×3 (05:33→22:17)
[2017-05-13] MEDS: CLONIDINE HCL 0.1 MG TABLET PO SCH ×4 (05:33→23:15)
[2017-05-13] MEDS: GABAPENTIN 400 MG CAPSULE PO SCH ×3 (05:33→22:17)
[2017-05-13] MEDS: INSULIN LISPRO 100 UNIT/ML 3 ML VIAL SUBCUT SCH ×3 (08:52→18:45)
[2017-05-13] MEDS: DULOXETINE HCL 30 MG CAPSULE.DR PO SCH (12:22)
[2017-05-13] MEDS: FLUCONAZOLE 100 MG TABLET PO SCH (12:22)
[2017-05-13] MEDS: GUAIFENESIN 600 MG TABLET.SA PO SCH ×2 (12:23→22:17)
[2017-05-13] MEDS: TORSEMIDE 20 MG TABLET PO SCH (12:26)
[2017-05-13] MEDS: SENNOSIDES/DOCUSATE 8.6-50 MG 1 EACH TABLET PO SCH (12:27)
[2017-05-13] MEDS: INSULIN GLARGINE,HUM.REC.ANLOG 1,000 UNIT/10 ML UNIT SUBCUT SCH ×2 (12:27→22:16)
[2017-05-13] MEDS: ENOXAPARIN SODIUM INJ 40 MG/0.4 ML DISP.SYRIN SUBCUT SCH (12:27)
--- NOTE | 2017-05-13 17:16 | PDOC PROGRESS REPORT ---
Subjective Progress Note for:: 05/13/17 Subjective:: Very tearful today. Patient states that the doctor that saw him yesterday had told him that she was discharged him to the homeless senior living. Patient was made aware that the homeless senior living would not accept the patient with his type of medical issues. Spoke to patient social psychologist who states that she is working on placement for patient. Patient was also very tearful because his pain medication was discontinued as well Physical Exam Vital Signs: Temp Pulse Resp BP Pulse Ox 98.1 F 80 16 121/52 L 99 05/13/17 09:16 05/13/17 09:16 05/13/17 09:16 05/13/17 09:16 05/13/17 09:16 Intake & Output 05/12/17 05/13/17 05/14/17 06:59 06:59 06:59 Intake Total 1614 960 Output Total 3500 1200 Balance -1886 -240 Weight 183 kg 183 kg General appearance: PRESENT: mild distress, morbidly obese, well-developed, well -nourished Head exam: PRESENT: atraumatic, normocephalic Eye exam: PRESENT: conjunctiva pink, EOMI. ABSENT: scleral icterus Ear exam: PRESENT: normal external ear exam Mouth exam: PRESENT: moist, tongue midline Neck exam: ABSENT: carotid bruit, JVD, lymphadenopathy, thyromegaly Respiratory exam: PRESENT: clear to auscultation kathryn. ABSENT: rales, rhonchi, wheezes Cardiovascular exam: PRESENT: RRR. ABSENT: diastolic murmur, rubs, systolic murmur Pulses: PRESENT: normal dorsalis pedis pul Vascular exam: PRESENT: normal capillary refill GI/Abdominal exam: PRESENT: normal bowel sounds, soft. ABSENT: distended, guarding, mass, organolmegaly, rebound, tenderness Neurological exam: PRESENT: alert, awake, oriented to person, oriented to place , oriented to time, oriented to situation, CN II-XII grossly intact. ABSENT: motor sensory deficit Psychiatric exam: PRESENT: appropriate affect, normal mood. ABSENT: homicidal ideation, suicidal ideation Skin exam: PRESENT: dry, intact, warm. ABSENT: cyanosis, rash Results Laboratory Results: 05/06/17 07:59 05/09/17 05:30 Impressions: Hip/Pelvis X-Ray 04/15/17 16:33 IMPRESSION: Portion of the right femoral neck is not well visualized as noted above. No obvious fractures are identified. Other findings as noted above Pelvis CT 04/15/17 18:37 IMPRESSION: On the sagittal images of the right hip there is apparent cortical offset just distal to the greater and lesser trochanters which is not identified in the other projections and may be artifactual in nature related to patient motion however clinical correlation is recommended. No other evidence for fracture is seen. Other findings as noted above. Lower Extremity MRI 04/17/17 08:00 IMPRESSION: No acute findings in the right hip. Scrotum Ultrasound 04/24/17 00:00 IMPRESSION: No acute or suspicious findings. Small to moderate bilateral hydroceles. Small left varicocele. Testicular microlithiasis. Thoracic Spine MRI 05/03/17 00:00 IMPRESSION: STABLE NONCONTRAST MRI OF THE THORACIC SPINE WHEN COMPARED TO 2016. NO FRACTURE OR SUSPICIOUS OSSEOUS LESION. NO SIGNIFICANT SPINAL CANAL STENOSIS. NO ABNORMAL EPIDURAL COLLECTION. Guidance Fluoroscopy 05/06/17 00:00 IMPRESSION: SUCCESSFUL PLACEMENT OF A 5 FR DUAL LUMEN 47.5 CM PICC IN THE LEFT BASILIC VEIN. Interventional Vascular Procedure 05/06/17 00:00 IMPRESSION: SUCCESSFUL PLACEMENT OF A 5 FR DUAL LUMEN 47.5 CM PICC IN THE LEFT BASILIC VEIN. PICC Line Insertion 05/06/17 00:00 IMPRESSION: SUCCESSFUL PLACEMENT OF A 5 FR DUAL LUMEN 47.5 CM PICC IN THE LEFT BASILIC VEIN. Assessment & Plan - Diagnosis (1) UTI (urinary tract infection) Qualifiers: Urinary tract infection type: site unspecified Hematuria presence: without hematuria Qualified Code(s): N39.0 - Urinary tract infection, site not specified Is this a current diagnosis for this admission?: Yes Plan: Enterococcus Faecalis Group D: Completed. (2) Volume overload Qualifiers: Hypervolemia type: unspecified Qualified Code(s): E87.70 - Fluid overload, unspecified Is this a current diagnosis for this admission?: Yes Plan: Will continue Lasix. (3) Back pain Qualifiers: Back pain location: thoracic back pain Is this a current diagnosis for this admission?: Yes Plan: Will restart Dilaudid. (4) Type 2 diabetes mellitus Qualifiers: Diabetes mellitus complication status: without complication Diabetes mellitus care home insulin use: with termite control representative use Qualified Code(s): E11.9 - Type 2 diabetes mellitus without complications; Z79.4 - terminal gauger supervisor (current) use of insulin; Z79.4 - terminal gauger supervisor (current) use of insulin; Z79.4 - terminal gauger supervisor ( current) use of insulin; Z79.4 - terminal gauger supervisor (current) use of insulin Is this a current diagnosis for this admission?: Yes Plan: Will continue current treatment. (5) Hyponatremia Is this a current diagnosis for this admission?: Yes Plan: Resolved. (6) Accidental fall Qualifiers: Encounter type: initial encounter Qualified Code(s): W19.XXXA - Unspecified fall, initial encounter Is this a current diagnosis for this admission?: Yes Plan: Supportive care. (7) Hyperglycemia Is this a current diagnosis for this admission?: Yes Plan: Will continue current treatment. (8) Ambulatory dysfunction Is this a current diagnosis for this admission?: Yes Plan: PT/OT (9) Chronic pain Qualifiers: Chronic pain type: chronic pain syndrome Qualified Code(s): G89.4 - Chronic pain syndrome Is this a current diagnosis for this admission?: Yes Plan: Continue current medication. (10) Depression Qualifiers: Depression Type: unspecified Qualified Code(s): F32.9 - Major depressive disorder, single episode, unspecified Is this a current diagnosis for this admission?: Yes Plan: Kaovn (11) Morbid obesity Is this a current diagnosis for this admission?: Yes Plan: Encourage dietary changes.
[2017-05-13] MEDS: HYDROMORPHONE HCL 2 MG TABLET PO PRN ×2 (18:44→23:15)
[2017-05-13] MEDS: INSULIN LISPRO 100 UNIT/ML 3 ML VIAL SUBCUT PRN (22:17)
[2017-05-13] MEDS: QUETIAPINE FUMARATE 25 MG TABLET PO SCH (22:17)
[2017-05-14] MEDS: GABAPENTIN 400 MG CAPSULE PO SCH ×3 (05:00→23:25)
[2017-05-14] MEDS: HYDROMORPHONE HCL 2 MG TABLET PO PRN ×4 (05:00→18:20)
[2017-05-14] MEDS: CLONIDINE HCL 0.1 MG TABLET PO SCH ×4 (05:00→23:26)
[2017-05-14] MEDS: BACLOFEN 20 MG TABLET PO SCH ×3 (05:00→23:26)
[2017-05-14 06:03] LABS: ABSOLUTE EOSINOPHILS # (AUTO) 0.3 10^3/uL (0.0-0.6); ABSOLUTE LYMPHOCYTES (AUTO) 2.8 10^3/uL (0.5-4.7); ABSOLUTE MONOCYTES (AUTO) 0.8 10^3/uL (0.1-1.4); ABSOLUTE NEUT (AUTO) 7.3 10^3/uL (1.7-8.2); BASOPHILS % (AUTO) 0.4 % (0-2); EOSINOPHILS % (AUTO) 2.4 % (0-6); HEMATOCRIT 34.7 % (37.9-51.0); HEMOGLOBIN 11.8 g/dL (13.5-17.0); HGB HCT DIFFERENCE 0.7; LYMPHOCYTES % (AUTO) 24.7 % (13-45); MEAN CORPUSCULAR HEMOGLOBIN 27.6 pg (27.0-33.4); MEAN CORPUSCULAR HGB CONC 33.9 g/dL (32.0-36.0); MEAN CORPUSCULAR VOLUME 81 fl (80-97); MONOCYTES % (AUTO) 6.9 % (3-13); RED BLOOD COUNT 4.26 10^6/uL (4.35-5.55); RED CELL DISTRIBUTION WIDTH 16.3 % (11.5-14.0); SEGMENTED NEUTROPHILS % (AUTO) 65.6 % (42-78); WHITE BLOOD COUNT 11.2 10^3/uL (4.0-10.5)
[2017-05-14 06:13] LABS: ANION GAP 12 (5-19); BLOOD UREA NITROGEN 16 mg/dL (7-20); CALCIUM 9.2 mg/dL (8.4-10.2); CARBON DIOXIDE 29 mmol/L (22-30); CHLORIDE 100 mmol/L (98-107); GLUCOSE 148 mg/dL (75-110); POTASSIUM 4.1 mmol/L (3.6-5.0); SODIUM 141.1 mmol/L (137-145)
[2017-05-14] MEDS: INSULIN LISPRO 100 UNIT/ML 3 ML VIAL SUBCUT SCH ×3 (09:13→18:18)
[2017-05-14] MEDS: GUAIFENESIN 600 MG TABLET.SA PO SCH ×2 (11:00→23:25)
[2017-05-14] MEDS: INSULIN GLARGINE,HUM.REC.ANLOG 1,000 UNIT/10 ML UNIT SUBCUT SCH ×2 (11:00→23:25)
[2017-05-14] MEDS: DULOXETINE HCL 30 MG CAPSULE.DR PO SCH (11:01)
[2017-05-14] MEDS: SENNOSIDES/DOCUSATE 8.6-50 MG 1 EACH TABLET PO SCH (11:01)
[2017-05-14] MEDS: ENOXAPARIN SODIUM INJ 40 MG/0.4 ML DISP.SYRIN SUBCUT SCH (11:01)
[2017-05-14] MEDS: TORSEMIDE 20 MG TABLET PO SCH (11:03)
[2017-05-14] MEDS: INSULIN LISPRO 100 UNIT/ML 3 ML VIAL SUBCUT PRN ×2 (12:59→23:25)
[2017-05-14] MEDS: FLUCONAZOLE 100 MG TABLET PO SCH (12:59)
--- NOTE | 2017-05-14 15:53 | PDOC PROGRESS REPORT ---
Subjective Progress Note for:: 05/14/17 Subjective:: Pt states that he is doing better. Physical Exam Vital Signs: Temp Pulse Resp BP Pulse Ox 97.9 F 74 20 104/50 L 97 05/14/17 12:00 05/14/17 12:00 05/14/17 12:00 05/14/17 12:00 05/14/17 12:00 Intake & Output 05/13/17 05/14/17 05/15/17 06:59 06:59 06:59 Intake Total 960 1656 630 Output Total 1200 4250 550 Balance -240 -2594 80 Weight 183 kg 179.7 kg General appearance: PRESENT: no acute distress, well-developed, well-nourished Head exam: PRESENT: atraumatic, normocephalic Eye exam: PRESENT: conjunctiva pink, EOMI. ABSENT: scleral icterus Ear exam: PRESENT: normal external ear exam Mouth exam: PRESENT: moist, tongue midline Neck exam: ABSENT: carotid bruit, JVD, lymphadenopathy, thyromegaly Respiratory exam: PRESENT: clear to auscultation kathryn. ABSENT: rales, rhonchi, wheezes Cardiovascular exam: PRESENT: RRR. ABSENT: diastolic murmur, rubs, systolic murmur Pulses: PRESENT: normal dorsalis pedis pul Vascular exam: PRESENT: normal capillary refill GI/Abdominal exam: PRESENT: normal bowel sounds, soft. ABSENT: distended, guarding, mass, organolmegaly, rebound, tenderness Rectal exam: PRESENT: deferred Extremities exam: PRESENT: full ROM. ABSENT: calf tenderness, clubbing, pedal edema Neurological exam: PRESENT: alert, awake, oriented to person, oriented to place , oriented to time, oriented to situation, CN II-XII grossly intact. ABSENT: motor sensory deficit Psychiatric exam: PRESENT: appropriate affect, normal mood. ABSENT: homicidal ideation, suicidal ideation Skin exam: PRESENT: dry, intact, warm. ABSENT: cyanosis, rash Results Laboratory Results: 05/14/17 05:31 05/14/17 05:31 05/14/17 05/14/17 05:31 05:31 WBC 11.2 H RBC 4.26 L Hgb 11.8 L Hct 34.7 L MCV 81 MCH 27.6 MCHC 33.9 RDW 16.3 H Plt Count 309 Seg Neutrophils % 65.6 Lymphocytes % 24.7 Monocytes % 6.9 Eosinophils % 2.4 Basophils % 0.4 Absolute Neutrophils 7.3 Absolute Lymphocytes 2.8 Absolute Monocytes 0.8 Absolute Eosinophils 0.3 Absolute Basophils 0.0 Sodium 141.1 Potassium 4.1 Chloride 100 Carbon Dioxide 29 Anion Gap 12 BUN 16 Creatinine 0.80 Est GFR ( Amer) > 60 Est GFR (Non-Af Amer) > 60 Glucose 148 H Calcium 9.2 Impressions: Hip/Pelvis X-Ray 04/15/17 16:33 IMPRESSION: Portion of the right femoral neck is not well visualized as noted above. No obvious fractures are identified. Other findings as noted above Pelvis CT 04/15/17 18:37 IMPRESSION: On the sagittal images of the right hip there is apparent cortical offset just distal to the greater and lesser trochanters which is not identified in the other projections and may be artifactual in nature related to patient motion however clinical correlation is recommended. No other evidence for fracture is seen. Other findings as noted above. Lower Extremity MRI 04/17/17 08:00 IMPRESSION: No acute findings in the right hip. Scrotum Ultrasound 04/24/17 00:00 IMPRESSION: No acute or suspicious findings. Small to moderate bilateral hydroceles. Small left varicocele. Testicular microlithiasis. Thoracic Spine MRI 05/03/17 00:00 IMPRESSION: STABLE NONCONTRAST MRI OF THE THORACIC SPINE WHEN COMPARED TO 2016. NO FRACTURE OR SUSPICIOUS OSSEOUS LESION. NO SIGNIFICANT SPINAL CANAL STENOSIS. NO ABNORMAL EPIDURAL COLLECTION. Guidance Fluoroscopy 05/06/17 00:00 IMPRESSION: SUCCESSFUL PLACEMENT OF A 5 FR DUAL LUMEN 47.5 CM PICC IN THE LEFT BASILIC VEIN. Interventional Vascular Procedure 05/06/17 00:00 IMPRESSION: SUCCESSFUL PLACEMENT OF A 5 FR DUAL LUMEN 47.5 CM PICC IN THE LEFT BASILIC VEIN. PICC Line Insertion 05/06/17 00:00 IMPRESSION: SUCCESSFUL PLACEMENT OF A 5 FR DUAL LUMEN 47.5 CM PICC IN THE LEFT BASILIC VEIN. Assessment & Plan - Diagnosis (1) UTI (urinary tract infection) Qualifiers: Urinary tract infection type: site unspecified Hematuria presence: without hematuria Qualified Code(s): N39.0 - Urinary tract infection, site not specified Is this a current diagnosis for this admission?: Yes Plan: Enterococcus Faecalis Group D: Completed. (2) Volume overload Qualifiers: Hypervolemia type: unspecified Qualified Code(s): E87.70 - Fluid overload, unspecified Is this a current diagnosis for this admission?: Yes Plan: Will continue Lasix. (3) Back pain Qualifiers: Back pain location: thoracic back pain Is this a current diagnosis for this admission?: Yes Plan: Dilaudid. (4) Type 2 diabetes mellitus Qualifiers: Diabetes mellitus complication status: without complication Diabetes mellitus skilled nursing insulin use: with middle or intermediate school principal use Qualified Code(s): E11.9 - Type 2 diabetes mellitus without complications; Z79.4 - longterm (current) use of insulin; Z79.4 - longterm (current) use of insulin; Z79.4 - terminal makeup operator ( current) use of insulin; Z79.4 - longterm (current) use of insulin Is this a current diagnosis for this admission?: Yes Plan: Will continue current treatment. (5) Hyponatremia Is this a current diagnosis for this admission?: Yes Plan: Resolved. (6) Accidental fall Qualifiers: Encounter type: initial encounter Qualified Code(s): W19.XXXA - Unspecified fall, initial encounter Is this a current diagnosis for this admission?: Yes Plan: Supportive care. (7) Hyperglycemia Is this a current diagnosis for this admission?: Yes Plan: Will continue current treatment. (8) Ambulatory dysfunction Is this a current diagnosis for this admission?: Yes Plan: PT/OT (9) Chronic pain Qualifiers: Chronic pain type: chronic pain syndrome Qualified Code(s): G89.4 - Chronic pain syndrome Is this a current diagnosis for this admission?: Yes Plan: Continue current medication. (10) Depression Qualifiers: Depression Type: unspecified Qualified Code(s): F32.9 - Major depressive disorder, single episode, unspecified Is this a current diagnosis for this admission?: Yes Plan: Kavon (11) Morbid obesity Is this a current diagnosis for this admission?: Yes Plan: Encourage dietary changes. - Time Time Spent with patient: 15-24 minutes
[2017-05-14] MEDS: QUETIAPINE FUMARATE 25 MG TABLET PO SCH (23:26)
[2017-05-15] MEDS: BACLOFEN 20 MG TABLET PO SCH ×3 (05:33→22:22)
[2017-05-15] MEDS: GABAPENTIN 400 MG CAPSULE PO SCH ×3 (05:33→22:15)
[2017-05-15] MEDS: HYDROMORPHONE HCL 2 MG TABLET PO PRN ×5 (05:33→22:21)
[2017-05-15] MEDS: CLONIDINE HCL 0.1 MG TABLET PO SCH ×4 (05:33→23:30)
[2017-05-15] MEDS: INSULIN LISPRO 100 UNIT/ML 3 ML VIAL SUBCUT SCH ×3 (08:01→16:14)
[2017-05-15] MEDS: TORSEMIDE 20 MG TABLET PO SCH (09:24)
[2017-05-15] MEDS: GUAIFENESIN 600 MG TABLET.SA PO SCH ×2 (09:24→22:16)
[2017-05-15] MEDS: SENNOSIDES/DOCUSATE 8.6-50 MG 1 EACH TABLET PO SCH (09:24)
[2017-05-15] MEDS: DULOXETINE HCL 30 MG CAPSULE.DR PO SCH (09:25)
[2017-05-15] MEDS: ENOXAPARIN SODIUM INJ 40 MG/0.4 ML DISP.SYRIN SUBCUT SCH (09:27)
[2017-05-15] MEDS: INSULIN GLARGINE,HUM.REC.ANLOG 1,000 UNIT/10 ML UNIT SUBCUT SCH ×2 (09:27→22:15)
[2017-05-15] MEDS ORDERED: NITROFURANTOIN MONOHYD/M-CRYST 100 MG CAPSULE PO ONE (10:15)
--- NOTE | 2017-05-15 10:49 | PDOC DISCHARGE SUMMARY ---
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 (3) Back pain Is this a current diagnosis for this admission?: Yes Summary: Will continue current medication. (4) Type 2 diabetes mellitus Is this a current diagnosis for this admission?: Yes Summary: Will continue current regimen. (5) Hyponatremia Is this a current diagnosis for this admission?: Yes Summary: Resolved. (6) Accidental fall Is this a current diagnosis for this admission?: Yes Summary: Pt will continue to work with PT/OT (7) Hyperglycemia Is this a current diagnosis for this admission?: Yes Summary: Will continue current treatment. (8) Ambulatory dysfunction Is this a current diagnosis for this admission?: Yes Summary: Pt to continue to work with PT/OT (9) Chronic pain Is this a current diagnosis for this admission?: Yes Summary: Will continue pain medication. (10) Depression Is this a current diagnosis for this admission?: Yes Summary: Continue current medication (11) Morbid obesity Is this a current diagnosis for this admission?: Yes Summary: Encourage dietary changes. - Additional Information Resuscitation Status: Full Code Discharge Diet: Cardiac, Diabetic Discharge Activity: Activity As Tolerated Home Medications: Duloxetine HCl [Cymbalta] 60 mg PO DAILY 04/15/17 Gabapentin [Neurontin 400 mg Capsule] 400 mg PO Q8 04/15/17 Baclofen [Baclofen 20 mg Tablet] 20 mg PO Q8 tablet 05/11/17 Clonidine HCl [Catapres 0.1 mg Tablet] 0.1 mg PO Q6 #10 tablet 05/15/17 Hydromorphone HCl [Dilaudid 2 mg Tablet] 2 mg PO Q4HP PRN #5 tablet 05/15/17 Insulin Glargine,Hum.rec.anlog [Lantus Insulin 100 Unit/1 ml 10 ml] 90 unit SUBCUT Q12 unit 05/15/17 Insulin Lispro [Humalog Insulin (Lispro) 100 unit/mL] 0 - 12 unit SUBCUT ACHSP PRN unit 05/15/17 Insulin Lispro [Humalog Insulin (Lispro) 100 unit/mL] 40 unit SUBCUT AC unit Mupirocin [Bactroban 2% Ointment 22 gm] 1 applic TP TID tube 05/15/17 Polyethylene Glycol 3350 [Miralax Powder 17 gm/Packet] 17 gm PO DAILYP PRN powd.pack 05/15/17 Quetiapine Fumarate [Seroquel 25 mg Tablet] 50 mg PO QHS #5 tablet 05/15/17 Sennosides/Docusate 8.6-50 mg [Senna Plus Tablet] 2 each PO DAILY tablet Torsemide [Demadex 20 mg Tablet] 20 mg PO DAILY tablet 05/15/17 Tramadol HCl [Ultram 50 mg Tablet] 50 mg PO Q4HP PRN #5 tablet 05/15/17 History of Present Illness Patient complains of: Abdominal Pain History of Present Illness: RAKESH RIVAS is a 36 year old male Hospital Course Hospital Course: Patient is a 36-year-old gentleman who admitted to our facility due to abdominal pain. Patient was found to have Proteus urinary tract infection was placed on appropriate antibiotics. Patient's Clark was changed at time of admission and also changed again during hospitalization. Repeat urine culture was done due to patient with complaint abdominal pain and patient demonstrated enterococcus. Patient received greater than 2 weeks of IV antibiotics and enterococcus was still present and urine. Once again patient's Clark had been changed. Patient white blood cell count and fever remained unchanged from time of admission. After treatment was completed and patient was recultured it demonstrated that he still had enterococcus patient was told that he most likely is colonized with this organism. Patient's enterococcus was multidrug resistant. Patient had fallen prior to admission to our hospital and therefore has been working with PT OT. Patient is currently being transferred to rehab for continuation of PT OT. Physical Exam Vital Signs: Temp Pulse Resp BP Pulse Ox 97.5 F 64 16 123/59 L 99 05/15/17 05:04 05/15/17 07:25 05/15/17 07:25 05/15/17 07:25 05/15/17 07:25 Intake & Output 05/14/17 05/15/17 05/16/17 06:59 06:59 06:59 Intake Total 1656 1720 Output Total 4250 1650 Balance -2594 70 Weight 179.7 kg 181.8 kg General appearance: PRESENT: no acute distress, well-developed, well-nourished Head exam: PRESENT: atraumatic, normocephalic Eye exam: PRESENT: conjunctiva pink, EOMI. ABSENT: scleral icterus Ear exam: PRESENT: normal external ear exam Mouth exam: PRESENT: moist, tongue midline Neck exam: ABSENT: carotid bruit, JVD, lymphadenopathy, thyromegaly Respiratory exam: PRESENT: clear to auscultation kathryn. ABSENT: rales, rhonchi, wheezes Cardiovascular exam: PRESENT: RRR. ABSENT: diastolic murmur, rubs, systolic murmur Pulses: PRESENT: normal dorsalis pedis pul Vascular exam: PRESENT: normal capillary refill GI/Abdominal exam: PRESENT: normal bowel sounds, soft. ABSENT: distended, guarding, mass, organolmegaly, rebound, tenderness Rectal exam: PRESENT: deferred Extremities exam: PRESENT: full ROM. ABSENT: calf tenderness, clubbing, pedal edema Neurological exam: PRESENT: alert, awake, oriented to person, oriented to place , oriented to time, oriented to situation, CN II-XII grossly intact. ABSENT: motor sensory deficit Psychiatric exam: PRESENT: appropriate affect, normal mood. ABSENT: homicidal ideation, suicidal ideation Skin exam: PRESENT: abrasion Results Laboratory Results: 05/14/17 05:31 05/14/17 05:31 Impressions: Hip/Pelvis X-Ray 04/15/17 16:33 IMPRESSION: Portion of the right femoral neck is not well visualized as noted above. No obvious fractures are identified. Other findings as noted above Pelvis CT 04/15/17 18:37 IMPRESSION: On the sagittal images of the right hip there is apparent cortical offset just distal to the greater and lesser trochanters which is not identified in the other projections and may be artifactual in nature related to patient motion however clinical correlation is recommended. No other evidence for fracture is seen. Other findings as noted above. Lower Extremity MRI 04/17/17 08:00 IMPRESSION: No acute findings in the right hip. Scrotum Ultrasound 04/24/17 00:00 IMPRESSION: No acute or suspicious findings. Small to moderate bilateral hydroceles. Small left varicocele. Testicular microlithiasis. Thoracic Spine MRI 05/03/17 00:00 IMPRESSION: STABLE NONCONTRAST MRI OF THE THORACIC SPINE WHEN COMPARED TO 2016. NO FRACTURE OR SUSPICIOUS OSSEOUS LESION. NO SIGNIFICANT SPINAL CANAL STENOSIS. NO ABNORMAL EPIDURAL COLLECTION. Guidance Fluoroscopy 05/06/17 00:00 IMPRESSION: SUCCESSFUL PLACEMENT OF A 5 FR DUAL LUMEN 47.5 CM PICC IN THE LEFT BASILIC VEIN. Interventional Vascular Procedure 05/06/17 00:00 IMPRESSION: SUCCESSFUL PLACEMENT OF A 5 FR DUAL LUMEN 47.5 CM PICC IN THE LEFT BASILIC VEIN. PICC Line Insertion 05/06/17 00:00 IMPRESSION: SUCCESSFUL PLACEMENT OF A 5 FR DUAL LUMEN 47.5 CM PICC IN THE LEFT BASILIC VEIN. Qualifiers PATEINT BEING DISCHARGED WITH ANY OF THE FOLLOWING DIAGNOSIS?: No
[2017-05-15] MEDS: MUPIROCIN 2% OINTMENT 22 GM TP SCH ×3 (11:39→17:52)
[2017-05-15] MEDS: FLUCONAZOLE 100 MG TABLET PO SCH (11:40)
[2017-05-15] MEDS: INSULIN LISPRO 100 UNIT/ML 3 ML VIAL SUBCUT PRN ×2 (11:57→22:15)
[2017-05-15] MEDS: NITROFURANTOIN MONOHYD/M-CRYST 100 MG CAPSULE PO SCH (16:16)
[2017-05-15] MEDS: TRAMADOL HCL 50 MG TABLET PO PRN (22:15)
[2017-05-15] MEDS: QUETIAPINE FUMARATE 25 MG TABLET PO SCH (22:16)
[2017-05-16] MEDS: TRAMADOL HCL 50 MG TABLET PO PRN (03:50)
[2017-05-16] MEDS: HYDROMORPHONE HCL 2 MG TABLET PO PRN ×5 (03:50→20:26)
[2017-05-16] MEDS: BACLOFEN 20 MG TABLET PO SCH ×2 (05:29→22:02)
[2017-05-16] MEDS: CLONIDINE HCL 0.1 MG TABLET PO SCH ×3 (05:29→17:48)
[2017-05-16] MEDS: GABAPENTIN 400 MG CAPSULE PO SCH ×3 (05:30→22:01)
[2017-05-16] MEDS: INSULIN LISPRO 100 UNIT/ML 3 ML VIAL SUBCUT PRN ×4 (08:02→22:08)
[2017-05-16] MEDS: INSULIN LISPRO 100 UNIT/ML 3 ML VIAL SUBCUT SCH ×3 (08:02→16:44)
[2017-05-16] MEDS: NITROFURANTOIN MONOHYD/M-CRYST 100 MG CAPSULE PO SCH ×2 (08:06→16:45)
[2017-05-16] MEDS: GUAIFENESIN 600 MG TABLET.SA PO SCH ×2 (09:26→22:02)
[2017-05-16] MEDS: DULOXETINE HCL 30 MG CAPSULE.DR PO SCH (09:26)
[2017-05-16] MEDS: TORSEMIDE 20 MG TABLET PO SCH (09:26)
[2017-05-16] MEDS: INSULIN GLARGINE,HUM.REC.ANLOG 1,000 UNIT/10 ML UNIT SUBCUT SCH ×2 (09:26→22:01)
[2017-05-16] MEDS: SENNOSIDES/DOCUSATE 8.6-50 MG 1 EACH TABLET PO SCH (09:26)
[2017-05-16] MEDS: MUPIROCIN 2% OINTMENT 22 GM TP SCH ×3 (09:29→17:47)
--- NOTE | 2017-05-16 12:35 | PDOC PROGRESS REPORT ---
Subjective Progress Note for:: 05/16/17 Subjective:: Pt is doing well. No new issues. Physical Exam Vital Signs: Temp Pulse Resp BP Pulse Ox 98.1 F 85 20 129/52 H 99 05/16/17 08:30 05/16/17 08:30 05/16/17 08:30 05/16/17 08:30 05/16/17 08:30 Intake & Output 05/15/17 05/16/17 05/17/17 06:59 06:59 06:59 Intake Total 1720 1675 Output Total 1650 3360 Balance 70 -1685 Weight 181.8 kg 181.2 kg General appearance: PRESENT: no acute distress, well-developed, well-nourished Head exam: PRESENT: atraumatic, normocephalic Eye exam: PRESENT: conjunctiva pink, EOMI. ABSENT: scleral icterus Ear exam: PRESENT: normal external ear exam Mouth exam: PRESENT: moist, tongue midline Neck exam: ABSENT: carotid bruit, JVD, lymphadenopathy, thyromegaly Respiratory exam: PRESENT: clear to auscultation kathryn. ABSENT: rales, rhonchi, wheezes Cardiovascular exam: PRESENT: RRR. ABSENT: diastolic murmur, rubs, systolic murmur Pulses: PRESENT: normal dorsalis pedis pul Vascular exam: PRESENT: normal capillary refill GI/Abdominal exam: PRESENT: normal bowel sounds, soft. ABSENT: distended, guarding, mass, organolmegaly, rebound, tenderness Rectal exam: PRESENT: deferred Neurological exam: PRESENT: alert, awake, oriented to person, oriented to place , oriented to time, oriented to situation, CN II-XII grossly intact. ABSENT: motor sensory deficit Psychiatric exam: PRESENT: appropriate affect, normal mood. ABSENT: homicidal ideation, suicidal ideation Results Laboratory Results: 05/14/17 05:31 05/14/17 05:31 05/13/17 20:15 Penis Gram Stain - Final Impressions: Hip/Pelvis X-Ray 04/15/17 16:33 IMPRESSION: Portion of the right femoral neck is not well visualized as noted above. No obvious fractures are identified. Other findings as noted above Pelvis CT 04/15/17 18:37 IMPRESSION: On the sagittal images of the right hip there is apparent cortical offset just distal to the greater and lesser trochanters which is not identified in the other projections and may be artifactual in nature related to patient motion however clinical correlation is recommended. No other evidence for fracture is seen. Other findings as noted above. Lower Extremity MRI 04/17/17 08:00 IMPRESSION: No acute findings in the right hip. Scrotum Ultrasound 04/24/17 00:00 IMPRESSION: No acute or suspicious findings. Small to moderate bilateral hydroceles. Small left varicocele. Testicular microlithiasis. Thoracic Spine MRI 05/03/17 00:00 IMPRESSION: STABLE NONCONTRAST MRI OF THE THORACIC SPINE WHEN COMPARED TO 2016. NO FRACTURE OR SUSPICIOUS OSSEOUS LESION. NO SIGNIFICANT SPINAL CANAL STENOSIS. NO ABNORMAL EPIDURAL COLLECTION. Guidance Fluoroscopy 05/06/17 00:00 IMPRESSION: SUCCESSFUL PLACEMENT OF A 5 FR DUAL LUMEN 47.5 CM PICC IN THE LEFT BASILIC VEIN. Interventional Vascular Procedure 05/06/17 00:00 IMPRESSION: SUCCESSFUL PLACEMENT OF A 5 FR DUAL LUMEN 47.5 CM PICC IN THE LEFT BASILIC VEIN. PICC Line Insertion 05/06/17 00:00 IMPRESSION: SUCCESSFUL PLACEMENT OF A 5 FR DUAL LUMEN 47.5 CM PICC IN THE LEFT BASILIC VEIN. Assessment & Plan - Diagnosis (1) UTI (urinary tract infection) Qualifiers: Urinary tract infection type: site unspecified Hematuria presence: without hematuria Qualified Code(s): N39.0 - Urinary tract infection, site not specified Is this a current diagnosis for this admission?: Yes Plan: Enterococcus Faecalis Group D: Completed treatment. (2) Volume overload Qualifiers: Hypervolemia type: unspecified Qualified Code(s): E87.70 - Fluid overload, unspecified Is this a current diagnosis for this admission?: Yes Plan: Will continue Lasix. (3) Back pain Qualifiers: Back pain location: thoracic back pain Is this a current diagnosis for this admission?: Yes Plan: Dilaudid. (4) Type 2 diabetes mellitus Qualifiers: Diabetes mellitus complication status: without complication Diabetes mellitus shelter insulin use: with shelter use Qualified Code(s): E11.9 - Type 2 diabetes mellitus without complications; Z79.4 - [facility] (current) use of insulin; Z79.4 - computer terminal operator (current) use of insulin; Z79.4 - computer terminal operator ( current) use of insulin; Z79.4 - [facility] (current) use of insulin Is this a current diagnosis for this admission?: Yes Plan: Will continue current treatment. (5) Hyponatremia Is this a current diagnosis for this admission?: Yes Plan: Resolved. (6) Accidental fall Qualifiers: Encounter type: initial encounter Qualified Code(s): W19.XXXA - Unspecified fall, initial encounter Is this a current diagnosis for this admission?: Yes Plan: Supportive care. (7) Hyperglycemia Is this a current diagnosis for this admission?: Yes Plan: Will continue current treatment. (8) Ambulatory dysfunction Is this a current diagnosis for this admission?: Yes Plan: PT/OT (9) Chronic pain Qualifiers: Chronic pain type: chronic pain syndrome Qualified Code(s): G89.4 - Chronic pain syndrome Is this a current diagnosis for this admission?: Yes Plan: Continue current medication. (10) Depression Qualifiers: Depression Type: unspecified Qualified Code(s): F32.9 - Major depressive disorder, single episode, unspecified Is this a current diagnosis for this admission?: Yes Plan: Kavon (11) Morbid obesity Is this a current diagnosis for this admission?: Yes Plan: Encourage dietary changes. - Time Time Spent with patient: 15-24 minutes
[2017-05-16] MEDS ORDERED: FLUCONAZOLE 100 MG TABLET PO ONE (17:00)
[2017-05-16] MEDS ORDERED: ENOXAPARIN SODIUM INJ 40 MG/0.4 ML DISP.SYRIN SUBCUT ONE (17:00)
[2017-05-16] MEDS: QUETIAPINE FUMARATE 25 MG TABLET PO SCH (22:02)
[2017-05-17] MEDS: CLONIDINE HCL 0.1 MG TABLET PO SCH ×5 (00:25→23:18)
[2017-05-17] MEDS: HYDROMORPHONE HCL 2 MG TABLET PO PRN ×5 (00:25→20:54)
[2017-05-17] MEDS: GABAPENTIN 400 MG CAPSULE PO SCH ×3 (05:28→21:39)
[2017-05-17] MEDS: BACLOFEN 20 MG TABLET PO SCH ×3 (05:28→21:39)
[2017-05-17] MEDS: INSULIN GLARGINE,HUM.REC.ANLOG 1,000 UNIT/10 ML UNIT SUBCUT SCH ×2 (11:20→21:40)
[2017-05-17] MEDS: DULOXETINE HCL 30 MG CAPSULE.DR PO SCH (11:24)
[2017-05-17] MEDS: NITROFURANTOIN MONOHYD/M-CRYST 100 MG CAPSULE PO SCH ×2 (11:26→16:49)
[2017-05-17] MEDS: ENOXAPARIN SODIUM INJ 40 MG/0.4 ML DISP.SYRIN SUBCUT SCH (11:26)
[2017-05-17] MEDS: INSULIN LISPRO 100 UNIT/ML 3 ML VIAL SUBCUT SCH ×3 (11:26→16:48)
[2017-05-17] MEDS: TORSEMIDE 20 MG TABLET PO SCH (11:26)
[2017-05-17] MEDS: MUPIROCIN 2% OINTMENT 22 GM TP SCH ×3 (11:26→18:10)
[2017-05-17] MEDS: FLUCONAZOLE 100 MG TABLET PO SCH (11:26)
[2017-05-17] MEDS: GUAIFENESIN 600 MG TABLET.SA PO SCH ×2 (11:26→21:39)
[2017-05-17] MEDS: SENNOSIDES/DOCUSATE 8.6-50 MG 1 EACH TABLET PO SCH (11:26)
--- NOTE | 2017-05-17 12:12 | PDOC PROGRESS REPORT ---
Subjective Progress Note for:: 05/17/17 Subjective:: Patient doing well. Patient was upset because the nurse he had when the episode with Dr. Alvarez occurred as who he has this morning. Patient has requested for different nurse. Physical Exam Vital Signs: Temp Pulse Resp BP Pulse Ox 97.6 F 79 18 120/59 L 100 05/17/17 07:52 05/17/17 07:52 05/17/17 07:52 05/17/17 07:52 05/17/17 07:52 Intake & Output 05/16/17 05/17/17 05/18/17 06:59 06:59 06:59 Intake Total 1675 1046 Output Total 3360 3905 Balance -1192 -5428 Weight 181.2 kg 181.2 kg General appearance: PRESENT: no acute distress, well-developed, well-nourished Head exam: PRESENT: atraumatic, normocephalic Eye exam: PRESENT: conjunctiva pink, EOMI. ABSENT: scleral icterus Ear exam: PRESENT: normal external ear exam Mouth exam: PRESENT: moist, tongue midline Neck exam: ABSENT: carotid bruit, JVD, lymphadenopathy, thyromegaly Respiratory exam: PRESENT: clear to auscultation kathryn. ABSENT: rales, rhonchi, wheezes Cardiovascular exam: PRESENT: RRR. ABSENT: diastolic murmur, rubs, systolic murmur Pulses: PRESENT: normal dorsalis pedis pul Vascular exam: PRESENT: normal capillary refill GI/Abdominal exam: PRESENT: normal bowel sounds, soft. ABSENT: distended, guarding, mass, organolmegaly, rebound, tenderness Rectal exam: PRESENT: deferred Extremities exam: PRESENT: full ROM. ABSENT: calf tenderness, clubbing, pedal edema Neurological exam: PRESENT: alert, awake, oriented to person, oriented to place , oriented to time, oriented to situation, CN II-XII grossly intact. ABSENT: motor sensory deficit Psychiatric exam: PRESENT: appropriate affect, normal mood. ABSENT: homicidal ideation, suicidal ideation Results Laboratory Results: 05/14/17 05:31 05/14/17 05:31 05/13/17 20:15 Penis Gram Stain - Final Impressions: Hip/Pelvis X-Ray 04/15/17 16:33 IMPRESSION: Portion of the right femoral neck is not well visualized as noted above. No obvious fractures are identified. Other findings as noted above Pelvis CT 04/15/17 18:37 IMPRESSION: On the sagittal images of the right hip there is apparent cortical offset just distal to the greater and lesser trochanters which is not identified in the other projections and may be artifactual in nature related to patient motion however clinical correlation is recommended. No other evidence for fracture is seen. Other findings as noted above. Lower Extremity MRI 04/17/17 08:00 IMPRESSION: No acute findings in the right hip. Scrotum Ultrasound 04/24/17 00:00 IMPRESSION: No acute or suspicious findings. Small to moderate bilateral hydroceles. Small left varicocele. Testicular microlithiasis. Thoracic Spine MRI 05/03/17 00:00 IMPRESSION: STABLE NONCONTRAST MRI OF THE THORACIC SPINE WHEN COMPARED TO 2016. NO FRACTURE OR SUSPICIOUS OSSEOUS LESION. NO SIGNIFICANT SPINAL CANAL STENOSIS. NO ABNORMAL EPIDURAL COLLECTION. Guidance Fluoroscopy 05/06/17 00:00 IMPRESSION: SUCCESSFUL PLACEMENT OF A 5 FR DUAL LUMEN 47.5 CM PICC IN THE LEFT BASILIC VEIN. Interventional Vascular Procedure 05/06/17 00:00 IMPRESSION: SUCCESSFUL PLACEMENT OF A 5 FR DUAL LUMEN 47.5 CM PICC IN THE LEFT BASILIC VEIN. PICC Line Insertion 05/06/17 00:00 IMPRESSION: SUCCESSFUL PLACEMENT OF A 5 FR DUAL LUMEN 47.5 CM PICC IN THE LEFT BASILIC VEIN. Assessment & Plan - Diagnosis (1) UTI (urinary tract infection) Qualifiers: Urinary tract infection type: site unspecified Hematuria presence: without hematuria Qualified Code(s): N39.0 - Urinary tract infection, site not specified Is this a current diagnosis for this admission?: Yes Plan: Enterococcus Faecalis Group D: Completed treatment. (2) Volume overload Qualifiers: Hypervolemia type: unspecified Qualified Code(s): E87.70 - Fluid overload, unspecified Is this a current diagnosis for this admission?: Yes Plan: Will continue Lasix. (3) Back pain Qualifiers: Back pain location: thoracic back pain Is this a current diagnosis for this admission?: Yes Plan: Dilaudid. (4) Type 2 diabetes mellitus Qualifiers: Diabetes mellitus complication status: without complication Diabetes mellitus intermediate insulin use: with predatory animal exterminator use Qualified Code(s): E11.9 - Type 2 diabetes mellitus without complications; Z79.4 - terminal gauger (current) use of insulin; Z79.4 - terminal gauger (current) use of insulin; Z79.4 - [facility] ( current) use of insulin; Z79.4 - terminal gauger (current) use of insulin Is this a current diagnosis for this admission?: Yes Plan: Will continue current treatment. (5) Hyponatremia Is this a current diagnosis for this admission?: Yes Plan: Resolved. (6) Accidental fall Qualifiers: Encounter type: initial encounter Qualified Code(s): W19.XXXA - Unspecified fall, initial encounter Is this a current diagnosis for this admission?: Yes Plan: Supportive care. (7) Hyperglycemia Is this a current diagnosis for this admission?: Yes Plan: Will continue current treatment. (8) Ambulatory dysfunction Is this a current diagnosis for this admission?: Yes Plan: PT/OT (9) Chronic pain Qualifiers: Chronic pain type: chronic pain syndrome Qualified Code(s): G89.4 - Chronic pain syndrome Is this a current diagnosis for this admission?: Yes Plan: Continue current medication. (10) Depression Qualifiers: Depression Type: unspecified Qualified Code(s): F32.9 - Major depressive disorder, single episode, unspecified Is this a current diagnosis for this admission?: Yes Plan: Kavon (11) Morbid obesity Is this a current diagnosis for this admission?: Yes Plan: Encourage dietary changes. - Time Time Spent with patient: Less than 15 minutes Anticipated discharge: Acute Rehab
[2017-05-17] MEDS: TRAMADOL HCL 50 MG TABLET PO PRN (20:54)
[2017-05-17] MEDS: QUETIAPINE FUMARATE 25 MG TABLET PO SCH (21:39)
[2017-05-17] MEDS: INSULIN LISPRO 100 UNIT/ML 3 ML VIAL SUBCUT PRN (21:40)
[2017-05-18] MEDS: HYDROMORPHONE HCL 2 MG TABLET PO PRN ×6 (01:36→23:54)
[2017-05-18] MEDS: GABAPENTIN 400 MG CAPSULE PO SCH ×3 (05:37→21:37)
[2017-05-18] MEDS: BACLOFEN 20 MG TABLET PO SCH ×3 (05:37→21:37)
[2017-05-18] MEDS: CLONIDINE HCL 0.1 MG TABLET PO SCH ×4 (05:38→23:53)
[2017-05-18] MEDS: INSULIN LISPRO 100 UNIT/ML 3 ML VIAL SUBCUT PRN ×3 (07:38→21:50)
[2017-05-18] MEDS: INSULIN LISPRO 100 UNIT/ML 3 ML VIAL SUBCUT SCH ×3 (07:38→17:24)
[2017-05-18] MEDS: NITROFURANTOIN MONOHYD/M-CRYST 100 MG CAPSULE PO SCH ×2 (07:39→16:13)
[2017-05-18] MEDS: INSULIN GLARGINE,HUM.REC.ANLOG 1,000 UNIT/10 ML UNIT SUBCUT SCH ×2 (10:06→21:49)
[2017-05-18] MEDS: ENOXAPARIN SODIUM INJ 40 MG/0.4 ML DISP.SYRIN SUBCUT SCH (10:07)
[2017-05-18] MEDS: SENNOSIDES/DOCUSATE 8.6-50 MG 1 EACH TABLET PO SCH (10:07)
[2017-05-18] MEDS: DULOXETINE HCL 30 MG CAPSULE.DR PO SCH (10:07)
[2017-05-18] MEDS: GUAIFENESIN 600 MG TABLET.SA PO SCH ×2 (10:08→21:37)
[2017-05-18] MEDS: MUPIROCIN 2% OINTMENT 22 GM TP SCH ×4 (10:08→18:29)
[2017-05-18] MEDS: TORSEMIDE 20 MG TABLET PO SCH (10:12)
--- NOTE | 2017-05-18 11:17 | PDOC PROGRESS REPORT ---
Subjective Progress Note for:: 05/18/17 Subjective:: Pt states that penile drainage has decreased with ointment. Physical Exam Vital Signs: Temp Pulse Resp BP Pulse Ox 97.4 F 64 20 117/61 100 05/18/17 07:09 05/18/17 07:09 05/18/17 07:09 05/18/17 07:09 05/18/17 07:09 Intake & Output 05/17/17 05/18/17 05/19/17 06:59 06:59 06:59 Intake Total 1046 2410 Output Total 3275 2900 Balance -2229 -490 Weight 181.2 kg 181.2 kg General appearance: PRESENT: no acute distress, well-developed, well-nourished Head exam: PRESENT: atraumatic, normocephalic Eye exam: PRESENT: conjunctiva pink, EOMI, PERRLA. ABSENT: scleral icterus Ear exam: PRESENT: normal external ear exam Mouth exam: PRESENT: moist, tongue midline Neck exam: ABSENT: carotid bruit, JVD, lymphadenopathy, thyromegaly Respiratory exam: PRESENT: clear to auscultation kathryn. ABSENT: rales, rhonchi, wheezes Cardiovascular exam: PRESENT: RRR. ABSENT: diastolic murmur, rubs, systolic murmur Pulses: PRESENT: normal dorsalis pedis pul Vascular exam: PRESENT: normal capillary refill GI/Abdominal exam: PRESENT: normal bowel sounds, soft. ABSENT: distended, guarding, mass, organolmegaly, rebound, tenderness Rectal exam: PRESENT: deferred Extremities exam: PRESENT: full ROM. ABSENT: calf tenderness, clubbing, pedal edema Neurological exam: PRESENT: alert, awake, oriented to person, oriented to place , oriented to time, oriented to situation, CN II-XII grossly intact. ABSENT: motor sensory deficit Psychiatric exam: PRESENT: appropriate affect, normal mood. ABSENT: homicidal ideation, suicidal ideation Skin exam: PRESENT: dry, intact, warm. ABSENT: cyanosis, rash Results Laboratory Results: 05/14/17 05:31 05/14/17 05:31 05/13/17 20:15 Penis Gram Stain - Final 05/13/17 20:15 Penis Wound Culture - Final Morganella Morganii Escherichia Coli Enterococcus Faecalis(Group D) Proteus Mirabilis Impressions: Hip/Pelvis X-Ray 04/15/17 16:33 IMPRESSION: Portion of the right femoral neck is not well visualized as noted above. No obvious fractures are identified. Other findings as noted above Pelvis CT 04/15/17 18:37 IMPRESSION: On the sagittal images of the right hip there is apparent cortical offset just distal to the greater and lesser trochanters which is not identified in the other projections and may be artifactual in nature related to patient motion however clinical correlation is recommended. No other evidence for fracture is seen. Other findings as noted above. Lower Extremity MRI 04/17/17 08:00 IMPRESSION: No acute findings in the right hip. Scrotum Ultrasound 04/24/17 00:00 IMPRESSION: No acute or suspicious findings. Small to moderate bilateral hydroceles. Small left varicocele. Testicular microlithiasis. Thoracic Spine MRI 05/03/17 00:00 IMPRESSION: STABLE NONCONTRAST MRI OF THE THORACIC SPINE WHEN COMPARED TO 2016. NO FRACTURE OR SUSPICIOUS OSSEOUS LESION. NO SIGNIFICANT SPINAL CANAL STENOSIS. NO ABNORMAL EPIDURAL COLLECTION. Guidance Fluoroscopy 05/06/17 00:00 IMPRESSION: SUCCESSFUL PLACEMENT OF A 5 FR DUAL LUMEN 47.5 CM PICC IN THE LEFT BASILIC VEIN. Interventional Vascular Procedure 05/06/17 00:00 IMPRESSION: SUCCESSFUL PLACEMENT OF A 5 FR DUAL LUMEN 47.5 CM PICC IN THE LEFT BASILIC VEIN. PICC Line Insertion 05/06/17 00:00 IMPRESSION: SUCCESSFUL PLACEMENT OF A 5 FR DUAL LUMEN 47.5 CM PICC IN THE LEFT BASILIC VEIN. Assessment & Plan - Diagnosis (1) UTI (urinary tract infection) Qualifiers: Urinary tract infection type: site unspecified Hematuria presence: without hematuria Qualified Code(s): N39.0 - Urinary tract infection, site not specified Is this a current diagnosis for this admission?: Yes Plan: Enterococcus Faecalis Group D: Completed treatment. (2) Volume overload Qualifiers: Hypervolemia type: unspecified Qualified Code(s): E87.70 - Fluid overload, unspecified Is this a current diagnosis for this admission?: Yes Plan: Will continue Lasix. (3) Back pain Qualifiers: Back pain location: thoracic back pain Is this a current diagnosis for this admission?: Yes Plan: Dilaudid. (4) Type 2 diabetes mellitus Qualifiers: Diabetes mellitus complication status: without complication Diabetes mellitus superintendent terminal insulin use: with superintendent terminal use Qualified Code(s): E11.9 - Type 2 diabetes mellitus without complications; Z79.4 - roasterman (current) use of insulin; Z79.4 - roasterman (current) use of insulin; Z79.4 - [facility] ( current) use of insulin; Z79.4 - [facility] (current) use of insulin Is this a current diagnosis for this admission?: Yes Plan: Will continue current treatment. (5) Hyponatremia Is this a current diagnosis for this admission?: Yes Plan: Resolved. (6) Accidental fall Qualifiers: Encounter type: initial encounter Qualified Code(s): W19.XXXA - Unspecified fall, initial encounter Is this a current diagnosis for this admission?: Yes Plan: Supportive care. (7) Hyperglycemia Is this a current diagnosis for this admission?: Yes Plan: Will continue current treatment. (8) Ambulatory dysfunction Is this a current diagnosis for this admission?: Yes Plan: PT/OT (9) Chronic pain Qualifiers: Chronic pain type: chronic pain syndrome Qualified Code(s): G89.4 - Chronic pain syndrome Is this a current diagnosis for this admission?: Yes Plan: Continue current medication. (10) Depression Qualifiers: Depression Type: unspecified Qualified Code(s): F32.9 - Major depressive disorder, single episode, unspecified Is this a current diagnosis for this admission?: Yes Plan: Kavon (11) Morbid obesity Is this a current diagnosis for this admission?: Yes Plan: Encourage dietary changes. - Time Time Spent with patient: Less than 15 minutes - Pt scheduled to go to rehab tomorrow.
[2017-05-18] MEDS: FLUCONAZOLE 100 MG TABLET PO SCH (12:44)
[2017-05-18] MEDS: QUETIAPINE FUMARATE 25 MG TABLET PO SCH (21:37)
[2017-05-19] MEDS: GABAPENTIN 400 MG CAPSULE PO SCH ×3 (05:35→21:58)
[2017-05-19] MEDS: CLONIDINE HCL 0.1 MG TABLET PO SCH ×4 (05:35→23:46)
[2017-05-19] MEDS: BACLOFEN 20 MG TABLET PO SCH ×3 (05:35→21:58)
[2017-05-19] MEDS: INSULIN LISPRO 100 UNIT/ML 3 ML VIAL SUBCUT SCH ×3 (08:22→17:38)
[2017-05-19] MEDS: HYDROMORPHONE HCL 2 MG TABLET PO PRN ×4 (08:22→21:58)
[2017-05-19] MEDS: NITROFURANTOIN MONOHYD/M-CRYST 100 MG CAPSULE PO SCH ×2 (08:30→16:27)
[2017-05-19] MEDS: SENNOSIDES/DOCUSATE 8.6-50 MG 1 EACH TABLET PO SCH (11:31)
[2017-05-19] MEDS: DULOXETINE HCL 30 MG CAPSULE.DR PO SCH (11:31)
[2017-05-19] MEDS: GUAIFENESIN 600 MG TABLET.SA PO SCH ×2 (11:31→21:58)
[2017-05-19] MEDS: FLUCONAZOLE 100 MG TABLET PO SCH (11:31)
[2017-05-19] MEDS: INSULIN GLARGINE,HUM.REC.ANLOG 1,000 UNIT/10 ML UNIT SUBCUT SCH ×2 (11:32→21:58)
[2017-05-19] MEDS: ENOXAPARIN SODIUM INJ 40 MG/0.4 ML DISP.SYRIN SUBCUT SCH (11:32)
--- NOTE | 2017-05-19 12:29 | PDOC PROGRESS REPORT ---
Subjective Progress Note for:: 05/19/17 Subjective:: Pt states that he is doing well. Physical Exam Vital Signs: Temp Pulse Resp BP Pulse Ox 98.0 F 66 20 111/67 100 05/19/17 11:29 05/19/17 11:29 05/19/17 11:29 05/19/17 11:29 05/19/17 11:29 Intake & Output 05/18/17 05/19/17 05/20/17 06:59 06:59 06:59 Intake Total 2410 1650 Output Total 2900 3825 Balance -490 -2175 Weight 181.2 kg 181.5 kg General appearance: PRESENT: no acute distress, well-developed, well-nourished Head exam: PRESENT: atraumatic, normocephalic Eye exam: PRESENT: conjunctiva pink, EOMI. ABSENT: scleral icterus Ear exam: PRESENT: normal external ear exam Mouth exam: PRESENT: moist, tongue midline Neck exam: ABSENT: carotid bruit, JVD, lymphadenopathy, thyromegaly Respiratory exam: PRESENT: clear to auscultation kathryn. ABSENT: rales, rhonchi, wheezes Cardiovascular exam: PRESENT: RRR. ABSENT: diastolic murmur, rubs, systolic murmur Pulses: PRESENT: normal dorsalis pedis pul Vascular exam: PRESENT: normal capillary refill GI/Abdominal exam: PRESENT: normal bowel sounds, soft. ABSENT: distended, guarding, mass, organolmegaly, rebound, tenderness Rectal exam: PRESENT: deferred Extremities exam: PRESENT: full ROM. ABSENT: calf tenderness, clubbing, pedal edema Neurological exam: PRESENT: alert, awake, oriented to person, oriented to place , oriented to time, oriented to situation, CN II-XII grossly intact. ABSENT: motor sensory deficit Psychiatric exam: PRESENT: appropriate affect, normal mood. ABSENT: homicidal ideation, suicidal ideation Skin exam: PRESENT: dry, intact, warm. ABSENT: cyanosis, rash Results Laboratory Results: 05/14/17 05:31 05/14/17 05:31 Impressions: Hip/Pelvis X-Ray 04/15/17 16:33 IMPRESSION: Portion of the right femoral neck is not well visualized as noted above. No obvious fractures are identified. Other findings as noted above Pelvis CT 04/15/17 18:37 IMPRESSION: On the sagittal images of the right hip there is apparent cortical offset just distal to the greater and lesser trochanters which is not identified in the other projections and may be artifactual in nature related to patient motion however clinical correlation is recommended. No other evidence for fracture is seen. Other findings as noted above. Lower Extremity MRI 04/17/17 08:00 IMPRESSION: No acute findings in the right hip. Scrotum Ultrasound 04/24/17 00:00 IMPRESSION: No acute or suspicious findings. Small to moderate bilateral hydroceles. Small left varicocele. Testicular microlithiasis. Thoracic Spine MRI 05/03/17 00:00 IMPRESSION: STABLE NONCONTRAST MRI OF THE THORACIC SPINE WHEN COMPARED TO 2016. NO FRACTURE OR SUSPICIOUS OSSEOUS LESION. NO SIGNIFICANT SPINAL CANAL STENOSIS. NO ABNORMAL EPIDURAL COLLECTION. Guidance Fluoroscopy 05/06/17 00:00 IMPRESSION: SUCCESSFUL PLACEMENT OF A 5 FR DUAL LUMEN 47.5 CM PICC IN THE LEFT BASILIC VEIN. Interventional Vascular Procedure 05/06/17 00:00 IMPRESSION: SUCCESSFUL PLACEMENT OF A 5 FR DUAL LUMEN 47.5 CM PICC IN THE LEFT BASILIC VEIN. PICC Line Insertion 05/06/17 00:00 IMPRESSION: SUCCESSFUL PLACEMENT OF A 5 FR DUAL LUMEN 47.5 CM PICC IN THE LEFT BASILIC VEIN. Assessment & Plan - Diagnosis (1) UTI (urinary tract infection) Qualifiers: Urinary tract infection type: site unspecified Hematuria presence: without hematuria Qualified Code(s): N39.0 - Urinary tract infection, site not specified Is this a current diagnosis for this admission?: Yes Plan: Enterococcus Faecalis Group D: Completed treatment. (2) Volume overload Qualifiers: Hypervolemia type: unspecified Qualified Code(s): E87.70 - Fluid overload, unspecified Is this a current diagnosis for this admission?: Yes Plan: Will continue Lasix. (3) Back pain Qualifiers: Back pain location: thoracic back pain Is this a current diagnosis for this admission?: Yes Plan: Dilaudid. (4) Type 2 diabetes mellitus Qualifiers: Diabetes mellitus complication status: without complication Diabetes mellitus terminal operations supervisor insulin use: with terminal operations supervisor use Qualified Code(s): E11.9 - Type 2 diabetes mellitus without complications; Z79.4 - rat exterminator (current) use of insulin; Z79.4 - skilled nursing (current) use of insulin; Z79.4 - rat exterminator ( current) use of insulin; Z79.4 - rat exterminator (current) use of insulin Is this a current diagnosis for this admission?: Yes Plan: Will continue current treatment. (5) Hyponatremia Is this a current diagnosis for this admission?: Yes Plan: Resolved. (6) Accidental fall Qualifiers: Encounter type: initial encounter Qualified Code(s): W19.XXXA - Unspecified fall, initial encounter Is this a current diagnosis for this admission?: Yes Plan: Supportive care. (7) Hyperglycemia Is this a current diagnosis for this admission?: Yes Plan: Will continue current treatment. (8) Ambulatory dysfunction Is this a current diagnosis for this admission?: Yes Plan: PT/OT (9) Chronic pain Qualifiers: Chronic pain type: chronic pain syndrome Qualified Code(s): G89.4 - Chronic pain syndrome Is this a current diagnosis for this admission?: Yes Plan: Continue current medication. (10) Depression Qualifiers: Depression Type: unspecified Qualified Code(s): F32.9 - Major depressive disorder, single episode, unspecified Is this a current diagnosis for this admission?: Yes Plan: Kavon (11) Morbid obesity Is this a current diagnosis for this admission?: Yes Plan: Encourage dietary changes. - Time Time Spent with patient: 15-24 minutes
[2017-05-19] MEDS: TORSEMIDE 20 MG TABLET PO SCH (12:50)
[2017-05-19] MEDS: MUPIROCIN 2% OINTMENT 22 GM TP SCH ×2 (16:27→17:38)
[2017-05-19] MEDS ORDERED: PHENAZOPYRIDINE HCL 100 MG TABLET PO ONE (20:57)
[2017-05-19] MEDS: QUETIAPINE FUMARATE 25 MG TABLET PO SCH (21:58)
[2017-05-19] MEDS: INSULIN LISPRO 100 UNIT/ML 3 ML VIAL SUBCUT PRN (21:58)
[2017-05-19] MEDS: PHENAZOPYRIDINE HCL 100 MG TABLET PO SCH (21:59)
[2017-05-20] MEDS: BACLOFEN 20 MG TABLET PO SCH (05:28)
[2017-05-20] MEDS: HYDROMORPHONE HCL 2 MG TABLET PO PRN ×2 (05:28→10:32)
[2017-05-20] MEDS: PHENAZOPYRIDINE HCL 100 MG TABLET PO SCH (05:28)
[2017-05-20] MEDS: CLONIDINE HCL 0.1 MG TABLET PO SCH (05:28)
[2017-05-20] MEDS: GABAPENTIN 400 MG CAPSULE PO SCH (05:28)
[2017-05-20 09:50] VITALS: BP 111/40
[2017-05-20] MEDS: NITROFURANTOIN MONOHYD/M-CRYST 100 MG CAPSULE PO SCH (10:19)
[2017-05-20] MEDS: SENNOSIDES/DOCUSATE 8.6-50 MG 1 EACH TABLET PO SCH (10:20)
[2017-05-20] MEDS: INSULIN LISPRO 100 UNIT/ML 3 ML VIAL SUBCUT SCH (10:31)
[2017-05-20] MEDS: ENOXAPARIN SODIUM INJ 40 MG/0.4 ML DISP.SYRIN SUBCUT SCH (10:31)
[2017-05-20] MEDS: INSULIN GLARGINE,HUM.REC.ANLOG 1,000 UNIT/10 ML UNIT SUBCUT SCH (10:31)
[2017-05-20] MEDS: GUAIFENESIN 600 MG TABLET.SA PO SCH (10:32)
[2017-05-20] MEDS: DULOXETINE HCL 30 MG CAPSULE.DR PO SCH (10:32)
[2017-05-20] MEDS: MUPIROCIN 2% OINTMENT 22 GM TP SCH (10:32)
[2017-05-20] MEDS: TORSEMIDE 20 MG TABLET PO SCH (10:32)
== END 2017-05-20 12:45 | DRG 699 ==
LOC: ER 16:26 → EH 18:26 → UNDOADMIN 18:26 → EH 18:48 → 4S 21:00
PROVIDERS: ADMIT Hospitalist; ATTEND Hospitalist
PROC: 02HV33Z Insertion of Infusion Device into Superior Vena Cava, Percutaneous Approach (ICD-10-PCS; principal; 2017-05-06)
PROC: B518ZZA Fluoroscopy of Superior Vena Cava, Guidance (ICD-10-PCS; 2017-05-06)
PROC: B548ZZA Ultrasonography of Superior Vena Cava, Guidance (ICD-10-PCS; 2017-05-06)
PROC: 3E0234Z Introduction of Serum, Toxoid and Vaccine into Muscle, Percutaneous Approach (ICD-10-PCS; 2017-05-20)
DX: T83.511A Infection and inflammatory reaction due to indwelling urethral catheter, initial encounter (principal); E87.1 Hypo-osmolality and hyponatremia; Z68.44 Body mass index [BMI] 60.0-69.9, adult; G82.20 Paraplegia, unspecified; N39.0 Urinary tract infection, site not specified; B95.2 Enterococcus as the cause of diseases classified elsewhere; B96.4 Proteus (mirabilis) (morganii) as the cause of diseases classified elsewhere; B96.20 Unspecified Escherichia coli [E. coli] as the cause of diseases classified elsewhere; W19.XXXA Unspecified fall, initial encounter; E11.65 Type 2 diabetes mellitus with hyperglycemia; F32.9 Major depressive disorder, single episode, unspecified; N43.3 Hydrocele, unspecified; I86.1 Scrotal varices; G47.33 Obstructive sleep apnea (adult) (pediatric); N31.9 Neuromuscular dysfunction of bladder, unspecified; I10 Essential (primary) hypertension; F17.210 Nicotine dependence, cigarettes, uncomplicated; G89.4 Chronic pain syndrome; K59.00 Constipation, unspecified; E66.01 Morbid (severe) obesity due to excess calories; R36.9 Urethral discharge, unspecified; M54.6 Pain in thoracic spine; E87.70 Fluid overload, unspecified; Z63.0 Problems in relationship with spouse or partner; Z74.2 Need for assistance at home and no other household member able to render care; Z79.899 Other long term (current) drug therapy; Z79.4 Long term (current) use of insulin; Z59.0 Homelessness; Z23 Encounter for immunization; Z99.3 Dependence on wheelchair; Z88.1 Allergy status to other antibiotic agents; Z88.0 Allergy status to penicillin
CPT/HCPCS: 36415; 36569; 72146; 72148; 72192; 76870; 76937; 77001; 80048; 80053; 80076; 80202; 81001; 82565; 82962; 83036; 83735; 85025; 85027; 87070; 87077; 87086; 87088; 87186; 87205; 90686; 93970; 93976; 96374; 96375; 96376; 99284; G8978-GP; G8979-GP; G8987-GO; G8988-GO; J0696; J0743; J1170; J1200; J1642; J1650; J1815; J1940; J2060; J2270; J2405; J3360; J3370; J3490; J7060; J8499